=== PATIENT | female | born 1955 | race Caucasian/White ===

== ENCOUNTER 2018-02-27 01:27 | Emergency (ER) | payer OTHER ==
[~2018-02-27 01:27] MED LIST: ESC10 PO; HCTZ25 PO; VALS320T12 PO
--- NOTE | 2018-02-27 01:43 | ER Report ---
History and Physical Time Seen By MD: 01:42 HPI/ROS CHIEF COMPLAINT: fall down stairs HISTORY OF PRESENT ILLNESS: This is a 62 year old female. She fell down the stairs tonight. Missed the top step. Has a laceration of her scalp, neck pain, and pain in right ankle/foot and right wrist. No loss of consciousness. Normal vision. No nausea. No chest pain or palpitations. Allergies: Coded Allergies: No Known Drug Allergies (Verified , 02/28/16) Home Meds Active Scripts Cyclobenzaprine Hcl (CYCLOBENZAPRINE HCL) 10 Mg Tablet, 10 MG PO Q8H Y for MUSCLE SPASMS, #20 TAB 0 Refills Prov:KAREN JIMENEZ MD 02/27/18 Hydrocodone Bit/Acetaminophen (HYDROCODON-ACETAMINOPHEN 5-325) 1 Each Tablet, 1 EACH PO Q4H Y for PAIN, #12 TAB 0 Refills Prov:KAREN JIMENEZ MD 02/27/18 Reported Medications Atorvastatin Calcium (LIPITOR) 10 Mg Tablet, 1 TAB PO QDAY, TAB 02/27/18 Escitalopram Oxalate (Lexapro) 10 Mg Tab, 10 MG PO QDAY, 0 Refills 02/05/11 Hydrochlorothiazide (Hydrochlorothiazide) 25 Mg Tab, 25 MG PO QDAY, 0 Refills 02/05/11 Valsartan (Diovan) 320 Mg Tablet, 320 MG PO QAM, 0 Refills 02/05/11 Reviewed Nurses Notes: Yes Hx Smoking: No Smoking Status: Never Smoker Hx Alcohol Use: No Constitutional Vital Sign - Last 24 Hours 02/27/18 02/27/18 02/27/18 02/27/18 01:33 01:36 01:39 01:42 Pulse 93 93 Resp 20 B/P (MAP) 134/81 (98) 141/77 (98) 141/77 Pulse Ox 92 O2 Delivery Room Air 02/27/18 02/27/18 02/27/18 02/27/18 02:29 02:32 02:47 03:00 Pulse 97 95 B/P (MAP) 140/88 (105) 136/77 (96) Pulse Ox 91 02/27/18 02/27/18 02/27/18 02/27/18 03:02 03:17 03:32 03:37 Pulse 101 95 93 90 Pulse Ox 90 95 93 90 Physical Exam General Appearance: The patient is alert, has no immediate need for airway protection and no current signs of toxicity. Eyes: Pupils equal and round, no injection. Reactive to light. Extraocular movements are intact. ENT: No dental or oral trauma. Respiratory: Breath sounds are equal, breathing easily. Cardiac: Regular rate and rhythm. Neurological: GCS 15. Alert and oriented x4. No deficits noted. Skin: Scalp laceration left parietal scalp. Musculoskeletal: Head: Otherwise atraumatic. Neck: The cervical spine is tender in the midline, cervical collar applied after my evaluation. Back: There is no thoracic or lumbar spine or paraspinal tenderness. Pelvis: Non-tender, no laxity with pelvic pressure. Extremities: Tender right wrist, radial side, right foot/ankle area. and left lateral rico. DIFFERENTIAL DIAGNOSIS: After history and physical exam differential diagnosis was considered for trauma in a fall down stairs, concern for head/neck injury, right wrist, right foot/ankle, and left tib/fib injuries. Will address the scalp laceration after imaging obtained. Medical Decision Making EKG/Imaging Imaging HEAD CT: Indication: Injury. Technique: Contiguous axial sections were obtained from the base to the vertex without contrast enhancement. One of the following dose optimization techniques was utilized in the performance of this exam: Automated exposure control; adjustment of the mA and/ or kV according to the patient's size; or use of an iterative reconstruction technique. Specific details can be referenced in the facility's radiology CT exam operational policy. Comparison: None. Findings: There is no evidence of intra-axial or extra-axial hemorrhage. No focal areas of decreased or increased attenuation are identified. There is no evidence of mass, edema, or shift of the midline structures. The size, shape, and configuration of the ventricular system are normal. There is soft tissue deformity on the left side of the scalp. There is no evidence of fracture or other acute skeletal deformity. Mucosal thickening is present in the maxillary, ethmoid, and sphenoid sinuses. The mastoid air cells are clear. Impression: Scalp soft tissue deformity. No evidence of fracture or hemorrhage. Report Dictated By: Tomy Bronwe MD at 02/27/2018 2:[address] of the cervical spine without contrast: Indication: Injury. Technique: Helical CT was performed from the base of the skull through the upper thoracic spine without contrast. Axial, coronal, and sagittal reconstructions are reviewed. One of the following dose optimization techniques was utilized in the performance of this exam: Automated exposure control; adjustment of the mA and/ or kV according to the patient's size; or use of an iterative reconstruction technique. Specific details can be referenced in the facility's radiology CT exam operational policy. Comparison: None. Findings: There is a nondisplaced fracture through the right superior and anterior margin of the C5 vertebral body. The findings are best visualized in the axial and sagittal planes. The C5 vertebral body is otherwise intact. There is no deformity of the posterior elements. No other acute skeletal deformity is identified. There are no signs of subluxation, angulation, or rotational deformity. There is moderate/marked degenerative disc disease at C3-C4, C5-C6, and C6-C7. There is uniform mineralization of the skeletal structures. There are signs of mild swelling in the prevertebral soft tissues. Impression: There is a nondisplaced fracture through the right superior and anterior margin of the C5 vertebral body. The skeletal structures are otherwise intact. There is no evidence of subluxation, angulation, or rotational deformity. A preliminary report was called to Dr. Jimenez at at 0255 hours. Report Dictated By: Tomy Browne MD at 02/27/2018 2:49 AM Exam type: L-SPINE W/O CONTRAST History: FALL Comparison: None. TECHNIQUE: Contiguous 1 mm helical images of the lumbar spine was performed without contrast. 2-D coronal sagittal reformations were performed. One of the following dose optimization techniques was utilized in the performance of this exam: Automated exposure control; adjustment of the mA and/ or kV according to the patient's size; or use of an iterative reconstruction technique. Specific details can be referenced in the facility's radiology CT exam operational policy. Findings: There is no acute fracture of lumbar spine. Patient is osteopenic. Significant degenerative changes are noted at L2-3 with loss of disc space height and endplate sclerosis. There is normal facet alignment in the AP alignment is relatively appropriate with minimal 2 mm of retrolisthesis of L2 with respect to L3. Broad-based protrusion is noted L4-5 which causes mild bilateral neuroforaminal narrowing. L5-S1 demonstrates a mild broad-based protrusion as well. Surrounding soft tissues are unremarkable. IMPRESSION: 1. No acute fracture of the lumbar spine. 2. Degenerative changes are noted L2-3. 3. Osteopenia. Report Dictated By: Po Recinos MD at 02/27/2018 2:47 AM Exam type: WRIST RIGHT MIN 3 VIEW History: Fall Comparison: None. Findings: There is a comminuted fracture of the distal right radius extending into the radiocarpal joint and distal radioulnar joint with impaction. Displaced fragment along the volar surface of the distal radius is displaced nearly 2 mm. Ulna is intact. Carpus aligns appropriate. Cyst within the scaphoid appears to be benign well-circumscribed. IMPRESSION: 1. Comminuted and impacted fracture of the distal right radius with involvement of the radiocarpal joint and distal radioulnar joint. Report Dictated By: Po Recinos MD at 02/27/2018 2:43 AM RIGHT FOOT: Indication: Injury. Technique: 3 views were obtained. Comparison: None. Findings: There are acute fractures across the bases of the second, third, and fourth metatarsals. There are no signs of dislocation. The skeletal structures are otherwise intact. There is normal mineralization. Moderate spur formation is observed on the plantar margin of the calcaneus. No focal soft tissue deformity is evident. IMPRESSION: Acute fractures at the bases of the second, third, and fourth metatarsals. Report Dictated By: Tomy Browne MD at 02/27/2018 2:43 AM Exam type: ANKLE 3 VIEW MIN RIGHT History: Fall Comparison: None. Findings: There is no acute fracture of the right ankle. Ankle mortise aligns appropriately. Hindfoot demonstrates a calcaneal heel spur. Soft tissues are unremarkable. IMPRESSION: 1. No acute fracture of the right ankle. Report Dictated By: Po Recinos MD at 02/27/2018 2:53 AM Exam type: 2 views left tibia and fibula History: Fall Comparison: None. Findings: There is no acute fracture of left tibia or fibula. Knee joints unremarkable. Ankle joint is also unremarkable. Hindfoot is notable for a calcaneal heel spur. IMPRESSION: 1. No acute fracture of the left tibia or fibula. Report Dictated By: Po Recinos MD at 02/27/2018 2:46 AM ED Course/Re-evaluation ED Course Images were obtained. Cervical spine protected while waiting for CT scans. Once these were available, the cervical collar was removed. Half cast applied to the right wrist and the right foot. Laceration repair as noted below. Patient prefers to use ibuprofen and Tylenol. I did give her a take home pack of Lortab and Flexeril just in case she needed this for pain as well as prescriptions. She will be nonweightbearing and follow up with [facility]. She will call them on Wednesday. Procedure Procedure: Laceration Repair Verbal consent from patient after discussing repair options, risks and benefits. Wound cleaned extensively with saline and Hibiclens. Anesthesia: 1% lidocaine with epinephrine. Location: Left parietal scalp. Length: 5 cm. There were no deep structures involved. Wound repair: 9 dannielle. The wound repair was simple and performed by myself. Wound care instructions discussed. Savery need to be removed in 7 days. Procedure: Sugar tong right forearm half cast and a combination stirrup posterior right foot half cast placement. A half-cast/splint as noted above was applied. After application of the half- cast, I returned and re-examined the patient. The half-cast was adequately immobilizing the joint and distally the patient's circulation and sensation was intact. This was applied by myself with the help of the pyrotechnist. Decision to Disposition Date: Feb 27, 2018 Decision to Disposition Time: 03:42 Depart Departure Latest Vital Signs Vital Signs Date Time Temp Pulse Resp B/P (MAP) Pulse Ox O2 Delivery O2 Flow Rate FiO2 02/27/18 03:37 90 90 02/27/18 03:00 136/77 (96) 02/27/18 01:39 20 Room Air Impression: Primary Impression: Fracture of C5 vertebra, closed Additional Impressions: Fracture of metatarsal of right foot, closed Fracture of distal end of right radius Fall down stairs Scalp laceration Condition: Improved Disposition: HOME OR SELF-CARE Referrals: RIVERA RODRIGUESP (PCP) CORINNE LAROSE MD New Scripts Cyclobenzaprine Hcl (CYCLOBENZAPRINE HCL) 10 Mg Tablet 10 MG PO Q8H Y for MUSCLE SPASMS, #20 TAB 0 Refills Prov: KAREN JIMENEZ MD 02/27/18 Hydrocodone Bit/Acetaminophen (HYDROCODON-ACETAMINOPHEN 5-325) 1 Each Tablet 1 EACH PO Q4H Y for PAIN, #12 TAB 0 Refills Prov: KAREN JIMENEZ MD 02/27/18 Patient Instructions: Foot Fracture in Adults (ED), Laceration (ED), Vertebral Compression Fracture (ED), Wrist Fracture in Adults (ED) Additional Instructions: Ibuprofen 200mg over the counter tablets, take 4 tablets three times a day with food. Lortab 5/325, one every 4 hours as needed for pain. Apply ice 20 minutes every 1-2 hours while awake. No weight bearing. Keep the splints on until you see the orthopedic surgeon. Keep them clean and dry. Check with medical supply or the pharmacies to find a scooter to help get around. Rest the injured area, keep it elevated while at rest. Wound Care: Wash the wound once a day with soap and water. Showering is okay. Dry the wound and apply a small amount of antibiotic ointment. No soaking the wound; no swimming. Savery need to be removed in 7 days. Pain Control: Use Ibuprofen for pain. Using and ice pack can help reduce swelling Problem Qualifiers Primary Impression: Fracture of C5 vertebra, closed Encounter type: initial encounter Fracture morphology: other fracture Fracture alignment: nondisplaced Qualified Codes: S12.491A - Other nondisplaced fracture of fifth cervical vertebra, initial encounter for closed fracture Additional Impressions: Fracture of metatarsal of right foot, closed Encounter type: initial encounter Metatarsal bone: unspecified metatarsal Fracture alignment: nondisplaced Qualified Codes: S92.301A - Fracture of unspecified metatarsal bone(s), right foot, initial encounter for closed fracture Fracture of distal end of right radius Encounter type: initial encounter Fracture type: closed Fracture morphology : other intra-articular Qualified Codes: S52.571A - Other intraarticular fracture of lower end of right radius, initial encounter for closed fracture Fall down stairs Encounter type: initial encounter Qualified Codes: W10.8XXA - Fall (on) ( from) other stairs and steps, initial encounter Scalp laceration Encounter type: initial encounter Qualified Codes: S01.01XA - Laceration without foreign body of scalp, initial encounter KAREN JIMENEZ MD Feb 27, 2018 01:43
[2018-02-27] MEDS ORDERED: ATOR10TA24 PO (01:53)
--- NOTE | 2018-02-27 02:49 | RADIOLOGY IMAGING REPORT ---
FACILITY: [facility] - [place] PATIENT NAME: Kristina Parkinson : 1955 MR: [id number] V: [id number] EXAM DATE: ORDERING PHYSICIAN: KAREN JARAMILLO TECHNOLOGIST: Location: [facility] - [place] Patient: Kristina Parkinson : 1955 Visit/Account:[id number] Date of Sevice: 02/27/2018 RIGHT FOOT: Indication: Injury. Technique: 3 views were obtained. Comparison: None. Findings: There are acute fractures across the bases of the second, third, and fourth metatarsals. Th ere are no signs of dislocation. The skeletal structures are otherwise intact. There is normal minera lization. Moderate spur formation is observed on the plantar margin of the calcaneus. No focal soft t issue deformity is evident. IMPRESSION: Acute fractures at the bases of the second, third, and fourth metatarsals. Report Dictated By: Tomy Browne MD at 02/27/2018 2:43 AM Report E-Signed By: Tomy Browne MD at 02/27/2018 2:45 AM WSN:[id number]
--- NOTE | 2018-02-27 02:50 | RADIOLOGY IMAGING REPORT ---
FACILITY: [facility] PATIENT NAME: Kristina Parkinson : 1955 MR: [id number] V: [id number] EXAM DATE: ORDERING PHYSICIAN: KAREN JARAMILLO TECHNOLOGIST: Location: [facility] [place] Patient: Kristina Parkinson : 1955 Visit/Account:[id number] Date of Sevice: 02/27/2018 Exam type: 2 views left tibia and fibula History: Fall Comparison: None. Findings: There is no acute fracture of left tibia or fibula. Knee joints unremarkable. Ankle joint is also unr emarkable. Hindfoot is notable for a calcaneal heel spur. IMPRESSION: 1. No acute fracture of the left tibia or fibula. Report Dictated By: Po Recinos MD at 02/27/2018 2:46 AM Report E-Signed By: Po Recinos MD at 02/27/2018 2:47 AM WSN:[id number]
--- NOTE | 2018-02-27 02:50 | RADIOLOGY IMAGING REPORT ---
FACILITY: [facility] - [place] PATIENT NAME: Kristina Parkinson : 1955 MR: [id number] V: [id number] EXAM DATE: ORDERING PHYSICIAN: KAREN JARAMILLO TECHNOLOGIST: Location: [facility] [place] Patient: Kristina Parkinson : 1955 Visit/Account:[id number] Date of Sevice: 02/27/2018 Exam type: WRIST RIGHT MIN 3 VIEW History: Fall Comparison: None. Findings: There is a comminuted fracture of the distal right radius extending into the radiocarpal joint and di stal radioulnar joint with impaction. Displaced fragment along the volar surface of the distal radius is displaced nearly 2 mm. Ulna is intact. Carpus aligns appropriate. Cyst within the scaphoid appears to be benign well-circums cribed. IMPRESSION: 1. Comminuted and impacted fracture of the distal right radius with involvement of the radiocarpal erlinda int and distal radioulnar joint. Report Dictated By: Po Recinos MD at 02/27/2018 2:43 AM Report E-Signed By: Po Recinos MD at 02/27/2018 2:45 AM WSN:[id number]
--- NOTE | 2018-02-27 02:53 | RADIOLOGY IMAGING REPORT ---
FACILITY: [facility] [place] PATIENT NAME: Kristina Parkinson : 1955 MR: [id number] V: [id number] EXAM DATE: ORDERING PHYSICIAN: KAREN JARAMILLO TECHNOLOGIST: Location: [facility] [place] Patient: Kristina Parkinson : 1955 Visit/Account:[id number] Date of Sevice: 02/27/[address]: Indication: Injury. Technique: Contiguous axial sections were obtained from the base to the vertex without contrast enhan cement. One of the following dose optimization techniques was utilized in the performance of this exam: Autom ated exposure control; adjustment of the mA and/or kV according to the patient's size; or use of an i terative reconstruction technique. Specific details can be referenced in the facility's radiology CT exam operational policy. Comparison: None. Findings: There is no evidence of intra-axial or extra-axial hemorrhage. No focal areas of decreased or increased attenuation are identified. There is no evidence of mass, edema, or shift of the midline structures. The size, shape, and configuration of the ventricular system are normal. There is soft tissue deformity on the left side of the scalp. There is no evidence of fracture or oth er acute skeletal deformity. Mucosal thickening is present in the maxillary, ethmoid, and sphenoid si nuses. The mastoid air cells are clear. Impression: Scalp soft tissue deformity. No evidence of fracture or hemorrhage. Report Dictated By: Tomy Browne MD at 02/27/2018 2:45 AM Report E-Signed By: Tomy Browne MD at 02/27/2018 2:49 AM WSN:[id number]
[2018-02-27 03:00] VITALS: BP 136/77
--- NOTE | 2018-02-27 03:21 | RADIOLOGY IMAGING REPORT ---
FACILITY: [facility] - [place] PATIENT NAME: Kristina Parkinson : 1955 MR: [id number] V: [id number] EXAM DATE: ORDERING PHYSICIAN: KAREN JARAMILLO TECHNOLOGIST: Location: [facility] Patient: Kristina Parkinson : 1955 Visit/Account:[id number] Date of Sevice: 02/27/2018 Exam type: ANKLE 3 VIEW MIN RIGHT History: Fall Comparison: None. Findings: There is no acute fracture of the right ankle. Ankle mortise aligns appropriately. Hindfoot demonstra ana a calcaneal heel spur. Soft tissues are unremarkable. IMPRESSION: 1. No acute fracture of the right ankle. Report Dictated By: Po Recinos MD at 02/27/2018 2:53 AM Report E-Signed By: Po Recinos MD at 02/27/2018 2:54 AM WSN:[id number]
--- NOTE | 2018-02-27 03:21 | RADIOLOGY IMAGING REPORT ---
FACILITY: [facility] PATIENT NAME: Kristina Parkinson : 1955 MR: [id number] V: [id number] EXAM DATE: ORDERING PHYSICIAN: KAREN JIMENEZ TECHNOLOGIST: Location: [facility] Patient: Kristina Parkinson : 1955 Visit/Account:[id number] Date of Sevice: 02/27/2018 CT of the cervical spine without contrast: Indication: Injury. Technique: Helical CT was performed from the base of the skull through the upper thoracic spine witho ut contrast. Axial, coronal, and sagittal reconstructions are reviewed. One of the following dose optimization techniques was utilized in the performance of this exam: Autom ated exposure control; adjustment of the mA and/or kV according to the patient's size; or use of an i terative reconstruction technique. Specific details can be referenced in the facility's radiology C T exam operational policy. Comparison: None. Findings: There is a nondisplaced fracture through the right superior and anterior margin of the C5 v ertebral body. The findings are best visualized in the axial and sagittal planes. The C5 vertebral aileen dy is otherwise intact. There is no deformity of the posterior elements. No other acute skeletal deformity is identified. There are no signs of subluxation, angulation, or ro tational deformity. There is moderate/marked degenerative disc disease at C3-C4, C5-C6, and C6-C7. 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 There are signs of mild swelling in the prevertebral soft tissues. Impression: There is a nondisplaced fracture through the right superior and anterior margin of the C5 vertebral body. The skeletal structures are otherwise intact. There is no evidence of subluxation, a ngulation, or rotational deformity. A preliminary report was called to Dr. Jimenez at [facility] at 0255 hours. Report Dictated By: Tomy Browne MD at 02/27/2018 2:49 AM Report E-Signed By: Tomy Browne MD at 02/27/2018 3:04 AM WSN:[id number]
--- NOTE | 2018-02-27 03:23 | RADIOLOGY IMAGING REPORT ---
FACILITY: [facility] [place] PATIENT NAME: Kristina Parkinson : 1955 MR: [id number] V: [id number] EXAM DATE: ORDERING PHYSICIAN: KAREN JARAMILLO TECHNOLOGIST: Location: [facility] Patient: Kristina Parkinson : 1955 Visit/Account:[id number] Date of Sevice: 02/27/2018 Exam type: L-SPINE W/O CONTRAST History: FALL Comparison: None. TECHNIQUE: Contiguous 1 mm helical images of the lumbar spine was performed without contrast. 2-D cor onal sagittal reformations were performed. One of the following dose optimization techniques was utilized in the performance of this exam: Autom ated exposure control; adjustment of the mA and/or kV according to the patient's size; or use of an i terative reconstruction technique. Specific details can be referenced in the facility's radiology C T exam operational policy. Findings: There is no acute fracture of lumbar spine. Patient is osteopenic. Significant degenerative changes a re noted at L2-3 with loss of disc space height and endplate sclerosis. There is normal facet alignme nt in the AP alignment is relatively appropriate with minimal 2 mm of retrolisthesis of L2 with respe ct to L3. Broad-based protrusion is noted L4-5 which causes mild bilateral neuroforaminal narrowing. L5-S1 demonstrates a mild broad-based protrusion as well. Surrounding soft tissues are unremarkable. IMPRESSION: 1. No acute fracture of the lumbar spine. 2. Degenerative changes are noted L2-3. 3. Osteopenia. Report Dictated By: Po Recinos MD at 02/27/2018 2:47 AM Report E-Signed By: Po Recinos MD at 02/27/2018 2:53 AM WSN:[id number]
[2018-02-27] MEDS ORDERED: LOR5/325 PO (03:46)
[2018-02-27] MEDS ORDERED: ACET/HYDROC 5/325MG TH ER ONLY 2 TAB/BOTTLE PO ONE (03:50)
[2018-02-27] MEDS ORDERED: CYCLOBENZAPRINE HCL 10 MG TH PO ONE (03:55)
[2018-02-27] MEDS ORDERED: CYCL10TA29 PO (03:56)
[2018-02-27] MEDS ORDERED: ACETAMINOPHEN 500 MG TAB PO ONE (04:00)
== END 2018-02-27 04:13 | disposition home or self-care (01) ==
LOC: ER 01:45
DX: S12.491A Other nondisplaced fracture of fifth cervical vertebra, initial encounter for closed fracture (principal); S01.01XA Laceration without foreign body of scalp, initial encounter; S92.301A Fracture of unspecified metatarsal bone(s), right foot, initial encounter for closed fracture; S52.571A Other intraarticular fracture of lower end of right radius, initial encounter for closed fracture; W10.8XXA Fall (on) (from) other stairs and steps, initial encounter
CPT/HCPCS: 12002; 29125; 29515; 70450; 72125; 72131; 73110; 73590; 73610; 73630; 99284; L0172

== ENCOUNTER → 2018-03-01 | Outpatient (CLI) | payer OTHER ==
[~2018-03-01] MED LIST changes: +ATOR10TA24 PO; +CYCL10TA29 PO; +LOR5/325 PO
--- NOTE | 2018-03-02 08:57 | RADIOLOGY IMAGING REPORT ---
FACILITY: [facility] [place] PATIENT NAME: Kristina Parkinson : 1955 MR: [id number] V: [id number] EXAM DATE: ORDERING PHYSICIAN: RANDEE BETHEA TECHNOLOGIST: Location: [facility] Patient: Kristina Parkinson : 1955 Visit/Account:[id number] Date of Sevice: 03/01/2018 CT right wrist. Indication: Distal radius fracture. Comparison: None available Technique: Axial CT images were obtained through the right wrist. Reformatted coronal and sagittal im ages were reviewed. One of the following dose optimization techniques was utilized in the performance of this exam: autom ated exposure control; adjustment of the mA and/or kV according to the patient's size; or use of an i terative reconstruction technique. Specific details can be referenced in the facility's radiology CT exam operational policy. Findings: There is a mildly impacted intra-articular complex fracture of the distal radius with extension to th e distal radioulnar joint as well as the radiocarpal joint. Small bone fragment seen adjacent to the volar and dorsal aspects of the distal radius. There is also a loose body seen within the distal radi oulnar joint. There is no discrete fracture of the ulna identified on these images. Prominent cystic change seen within the scaphoid bone. The proximal carpal row is otherwise well alig shyam. There is a small sclerotic lesion within the proximal capitate bone suggesting a bone island. Cystic changes also seen within the proximal hamate bone. Significant registration artifact at the distal shaft of the ulna and radius also seen. The visualized flexor and extensor tendons appear to be overall intact. IMPRESSION: 1. Mildly impacted complex intra-articular fracture distal radius as described above in detail with n o definite fracture of the distal ulna. Report Dictated By: Dylan Gill MD at 03/02/2018 8:48 AM Report E-Signed By: Dylan Gill MD at 03/02/2018 8:52 AM WSN:[id number]
--- NOTE | 2018-03-02 09:11 | RADIOLOGY IMAGING REPORT ---
FACILITY: [facility] [place] PATIENT NAME: Kristina Parkinson : 1955 MR: [id number] V: [id number] EXAM DATE: ORDERING PHYSICIAN: RANDEE BETHEA TECHNOLOGIST: Location: [facility] Patient: Kristina Parkinson : 1955 Visit/Account:[id number] Date of Sevice: 03/01/2018 CT of the right foot INDICATION: Right foot 2nd through the 4th metatarsal fractures. COMPARISON: Plain radiographs of the right foot from 02/27/2018. Technique: Axial CT images were obtained through the right foot. Reformatted coronal and sagittal im ages were reviewed. One of the following dose optimization techniques was utilized in the performance of this exam: autom ated exposure control; adjustment of the mA and/or kV according to the patient's size; or use of an i terative reconstruction technique. Specific details can be referenced in the facility's radiology CT exam operational policy. FINDINGS: Mildly complex and mild offset intra-articular fracture at the lateral base of the 1st metatarsal wit h transverse mild offset fractures also seen at the proximal shafts of the 2nd and 3rd metatarsals wi th a moderately lateral displaced fracture the base of the 4th metatarsal. There is approximately 5.6 mm of lateral displacement. There is no displacement or significant widening between the 1st and 2nd metatarsals. There is prominent soft tissue swelling at the dorsal lateral aspect of the midfoot. Flexor and extensor tendons are intact and unremarkable. IMPRESSION: 1. Fractures involving the 1st through the 4th metatarsals as described above in detail. Report Dictated By: Dylan Gill MD at 03/02/2018 8:52 AM Report E-Signed By: Dylan Gill MD at 03/02/2018 9:08 AM WSN:[id number]
== END ==
LOC: CT 07:05
PROVIDERS: ATTEND Orthopaedic Surgery
DX: S52.591A Other fractures of lower end of right radius, initial encounter for closed fracture (principal); S92.311A Displaced fracture of first metatarsal bone, right foot, initial encounter for closed fracture; S92.321A Displaced fracture of second metatarsal bone, right foot, initial encounter for closed fracture; S92.331A Displaced fracture of third metatarsal bone, right foot, initial encounter for closed fracture; S92.341A Displaced fracture of fourth metatarsal bone, right foot, initial encounter for closed fracture

== ENCOUNTER → 2018-03-01 | Outpatient (CLI) | payer OTHER ==
--- NOTE | 2018-03-01 17:54 | EKG ---
FACILITY: [facility] PATIENT NAME: BEV GONZALEZ : [id number] MR: [id number] V: [id number] EXAM DATE: ORDERING PHYSICIAN: KENA OBRIEN TECHNOLOGIST: SARAH Test Reason : PREOP-WRIST Blood Pressure : / mmHG Vent. Rate : 076 BPM Atrial Rate : 076 BPM P-R Int : 142 ms QRS Dur : 082 ms QT Int : 364 ms P-R-T Axes : 049 051 006 degrees QTc Int : 409 ms Normal sinus rhythm Normal ECG No previous ECGs available Referred By: CAMILLE Confirmed By:
== END ==
LOC: LAB 16:18
PROVIDERS: ATTEND Anesthesiology
DX: Z01.812 Encounter for preprocedural laboratory examination (principal); Z01.810 Encounter for preprocedural cardiovascular examination
CPT/HCPCS: 36415; 82040; 82247; 82310; 82374; 82435; 82565; 82947; 84075; 84132; 84155; 84295; 84450; 84460; 84520; 93005

== ENCOUNTER → 2018-07-05 | Outpatient (CLI) | payer OTHER ==
--- NOTE | 2018-07-06 15:22 | RADIOLOGY IMAGING REPORT ---
FACILITY: [facility] [place] PATIENT NAME: BEV GONZALEZ : [id number] MR: [id number] V: [id number] EXAM DATE: [id number] ORDERING PHYSICIAN: RIVERA RODRIGUES TECHNOLOGIST: Edith Watson PROCEDURE:BILATERAL DIGITAL SCREENING MAMMOGRAM WITH CAD ASSISTED INTERPRETATION & 3D TOMOSYNTHESIS COMPARISON:Prior mammograms 06/29/2017. INDICATIONS:SCREENING FINDINGS: Breast tissue is predominantly fatty. Scattered calcifications are seen in both Right and Left breast. There is no suspicious mass, calcification, or architectural distortion. DIAGNOSTIC CATEGORY 2--BENIGN FINDING. RECOMMENDATIONS: ROUTINE MAMMOGRAM AND CLINICAL EVALUATION. IMPRESSION: BIRADS 2: Benign finding. No mammographic evidence for malignancy. Dictated by: Kenney Ching M.D. on 07/06/2018 at 10:08 Transcribed by: MARIAN on 07/06/2018 at 10:24 Approved by: Kenney Ching M.D. on 07/06/2018 at 15:22 [facility]
== END ==
LOC: MAMO 03:21
PROVIDERS: ATTEND Nurse Practitioner Family
DX: Z12.31 Encounter for screening mammogram for malignant neoplasm of breast (principal); R92.1 Mammographic calcification found on diagnostic imaging of breast
CPT/HCPCS: 77063; 77067

== ENCOUNTER → 2018-11-23 | Outpatient (CLI) | payer OTHER ==
--- NOTE | 2018-11-23 16:31 | RADIOLOGY IMAGING REPORT ---
FACILITY: [facility] PATIENT NAME: Kristina Parkinson : 1955 MR: [id number] V: [id number] EXAM DATE: ORDERING PHYSICIAN: YESI MENDEZ TECHNOLOG[place]: [place] [facility] [place] : 1955 Visit/Account:[id number] Date of Sevice: 11/23/2018 Technique: KUB SINGLE VIEW ABDOMEN HISTORY: Abdominal pain and bloating Comparison studies: None FINDINGS: Imaged portions of the lung bases are clear. No evidence organomegaly. Surgical clips ove rlie the right upper quadrant. Mild stool volume is seen throughout the colon. IMPRESSION: 1. No acute intra-abdominal process. Report Dictated By: Surendra Suarez DO at 11/23/2018 4:16 PM Report E-Signed By: Surendra Suarez DO at 11/23/2018 4:25 PM WSN:[id number]
== END ==
LOC: RAD 14:26
PROVIDERS: ATTEND Nurse Practitioner Family
DX: R10.9 Unspecified abdominal pain (principal); R14.0 Abdominal distension (gaseous)
CPT/HCPCS: 74018

== ENCOUNTER → 2018-11-24 | Outpatient (CLI) | payer OTHER ==
[2018-11-24 08:36] LABS: PLATELET COUNT, AUTOMATED 351 K/uL (150-450)
[2018-11-24 08:46] LABS: LDL CHOLESTEROL 94 mg/dl
== END ==
LOC: LAB 08:19
PROVIDERS: ATTEND Nurse Practitioner Family
DX: Z00.00 Encounter for general adult medical examination without abnormal findings (principal); I10 Essential (primary) hypertension; R10.9 Unspecified abdominal pain
CPT/HCPCS: 36415; 82040; 82150; 82247; 82310; 82374; 82435; 82465; 82565; 82947; 83690; 83718; 84075; 84132; 84155; 84295; 84443; 84450; 84460; 84478; 84520; 85025; 86677

== ENCOUNTER → 2018-11-30 | Outpatient (CLI) | payer OTHER ==
--- NOTE | 2018-11-30 09:43 | RADIOLOGY IMAGING REPORT ---
FACILITY: [facility] [place] PATIENT NAME: Kristina Parkinson : 1955 MR: [id number] V: [id number] EXAM DATE: ORDERING PHYSICIAN: RIVERA RODRIGUES TECHNOLOGIST: Location: [facility] [place] Patient: Kristina Parkinson : 1955 Visit/Account:[id number] Date of Sevice: 11/30/2018 CT ABDOMEN PELVIS W/O CON HISTORY: Abdomen pain with constipation in November TECHNIQUE: Axial images acquired through the abdomen/pelvis. Coronal and sagittal reformatting also performed. No IV contrast administered.Dose Lowering Technique One of the following dose optimization techniques was utilized in the performance of this exam: Autom ated exposure control; adjustment of the mA and/or kV according to the patient's size; or use of an i terative reconstruction technique. Specific details can be referenced in the facility's radiology C T exam operational policy. COMPARISON: None. FINDINGS: Visualized lung bases: Negative. Hepatobiliary: Postsurgical changes from a cholecystectomy Spleen: Negative. Adrenals: Negative. Pancreas: Negative. Kidneys ureters and bladder: Kidneys appear grossly unremarkable on this limited noncontrast scan. T he bladder is decompressed Genitalia: Negative. GI: There is a small hiatal hernia. There is thickening and matting of small bowel loops on the lef t side of the abdomen which appear to be in intimate contact with the descending colon.. The matting of the bowel loops extend medially to the midline. There is extensive nodularity and infiltrative c hanges throughout the omentum concerning for peritoneal metastases. There is a small amount of free pelvic fluid Vessels/spaces/nodes: In addition to the omental nodularity there are multiple small right epiphreni c lymph nodes. The largest measures 1.1 x 0.7 cm Bones/soft tissues: There is a tiny umbilical hernia containing fat. There are spondylotic changes of the visualized thoracal lumbar spine which are most prominent at L2- 3 Additional findings: None pertinent. IMPRESSION: There is thickening and matting of small bowel loops left-sided the abdomen which appear to be in int imate contact with the descending colon. The matting of the small bowel loops extends medially to th e midline. This process is concerning for a malignant process. There is a small amount of free pelv ic fluid and extensive nodularity and infiltrative changes throughout the omentum concerning for trish toneal metastases. Multiple small epiphrenic lymph nodes on the right the largest measuring 1.1 x 0.7 cm Small hiatal hernia Tiny umbilical hernia containing fat Report Dictated By: Estrella Hallman MD at 11/30/2018 9:10 AM Report E-Signed By: Estrella Hallman MD at 11/30/2018 9:39 AM WSN:[id number]
== END ==
LOC: CT 00:23
PROVIDERS: ATTEND Nurse Practitioner Family
DX: K44.9 Diaphragmatic hernia without obstruction or gangrene (principal); K42.9 Umbilical hernia without obstruction or gangrene; R59.0 Localized enlarged lymph nodes
CPT/HCPCS: 74176

== ENCOUNTER → 2018-12-05 | Outpatient (CLI) | payer OTHER ==
[~2018-12-05] MED LIST changes: +LOSA100T75 PO
== END ==
LOC: LAB 09:25
PROVIDERS: ATTEND Surgery
DX: R10.9 Unspecified abdominal pain (principal)
CPT/HCPCS: 36415; 86304

== ENCOUNTER → 2018-12-12 | Outpatient (CLI) | payer OTHER ==
[~2018-12-12] MED LIST changes: +DICY20TA70 PO; +IOPAMIDOL 76% 150 ML INFUS BTL 150 ML ONE; +POLY17PO25 PO
--- NOTE | 2018-12-12 11:53 | RADIOLOGY IMAGING REPORT ---
FACILITY: [facility] [place]IENT NAME: Kristina Parkinson : 1955 MR: [id number] V: [id number] EXAM DATE: ORDERING PHYSICIAN: DAGO RASHID TECHNOLOGIST: Location: [facility] [place] Patient: Kristina Parkinson : 1955 Visit/Account:[id number] Date of Sevice: 12/12/2018 CT CHEST ABDOMEN PELVIS W/CON HISTORY: abdominal pain, diarrhea, follow-up from November ADDITIONAL HISTORY: None. TECHNIQUE: Following administration of IV contrast axial images acquired through the chest abdomen a nd pelvis during the portal venous phase. Coronal and sagittal reformatting was also performed.Dose Lowering Technique One of the following dose optimization techniques was utilized in the performance of this exam: Autom ated exposure control; adjustment of the mA and/or kV according to the patient's size; or use of an i terative reconstruction technique. Specific details can be referenced in the facility's radiology C T exam operational policy. CONTRAST: 75 mL Isovue-370 COMPARISON: November 30, 2018 FINDINGS: CHEST: Lungs/Pleura: There is a 2 mm subpleural nodule lateral aspect of the left lower lobe that appears u nchanged Mediastinum/lymph nodes: Negative. Heart/vessels: Negative. Bones/soft tissues: S-shaped scoliosis of the cervical thoracic spine ABDOMEN AND PELVIS: Hepatobiliary: There are postsurgical changes from a cholecystectomy Spleen: Negative. Pancreas: Negative. Adrenals: Negative. Kidneys ureters and bladder : There are several tiny subcentimeter hypodensities in the right kidney that are too small to characterize Bladder is decompressed therefore not ideally evaluated. Genitalia: In the left adnexa there is a 4.1 x 3.8 cm complex structure most likely related to the le ft ovary. GI: Small hiatal hernia again noted. Again noted are numerous matted loops of small bowel in the left side of the abdomen appear to be adh erent to the left side of the colon.. There is mild thickening enhancement of the terminal ileum. T he distal ileal bowel loops appear slightly dilated and fluid-filled measuring up to 3.2 cm infiltrat gregory changes and nodularity throughout the omentum appears relatively unchanged.. There is a slight i ncrease in the small amount of free pelvic and abdominal fluid. Vessels/spaces/nodes: Epiphrenic lymph nodes appear unchanged. Please see above discussion concerni ng the omentum Bones/soft tissues: Tiny umbilical hernia containing fat. Spondylotic changes of the thoracal lumba r spine most prominent at L2-3 Additional findings: None pertinent. IMPRESSION: Again noted are numerous matted loops of small bowel in the left side of the abdomen which appear to be adherent to the left side of the colon. Although these changes could be inflammatory, malignancy should be excluded. There are infiltrative changes and nodularity seen throughout the omentum. Alth ough this could represent edema findings are concerning for carcinomatosis. There is enhancement thickening of the terminal ileum. There is also mild fluid distention of the di stal ileal loops. This raises the question of possible inflammatory bowel disease and clinical corre lation needed. There has been a slight increase in the small amount of free pelvic and abdominal flu id In the left adnexa there is a 4.1 x 3.8 cm complex structure most likely related to the left ovary. Further evaluation with pelvic ultrasound to exclude an ovarian mass is recommended. 2 mm subpleural noncalcified nodule lateral aspect left lower lobe appears unchanged [employer] SOC[employer] FOLLOW-UP GUIDELINES FOR NEWLY DETECTED INCIDENTAL NODULES IN PERSONS 35 YEARS OF AGE OR OLDER. *These recommendations do NOT apply to lung cancer screening, patients with immunosuppression or avis ents with a known primary malignancy. SOLITARY SOLID NODULE If nodule size is < 6 mm: * Low risk patient ? No routine follow-up. * High risk patient ? Optional CT at 12 months. If nodu e size is 6-8 mm: * Low risk patient ? CT at 6-12 months, then consider CT at 18-24 months if no change. * High risk patient ? CT at 6-12 months, then CT at 18-24 months if no change. If nodule size is > 8 mm:* Low risk patient ? Consider CT at 3, 9 and 24 months (if no change), PET/ CT, tissue sampling or a combination thereof. * High risk patient ? Consider CT at 3, 9 and 24 months (if no change), PET/CT, tissue sampling, or a combination thereof. LOW RISK PATIENT: Minimal or absent history of tobacco use and of other known risk factors. HIGH RISK PATIENT: Tobacco use, family history of lung cancer, upper pulmonary lobe location of nodul e, presence of emphysema, pulmonary fibrosis, older age. Landen H, Bao DP, Ld JM, et al. Guidelines for Management of Incidental Pulmonary Nodules Dete cted on CT Images: From the Fleischner Society 2017. Radiology. uchnipn Epiphrenic lymph nodes appear unchanged Report Dictated By: Estrella Hallman MD at 12/12/2018 11:17 AM Report E-Signed By: Estrella Hallman MD at 12/12/2018 11:44 AM WSN:[id number]
== END ==
LOC: CT 01:45
PROVIDERS: ATTEND Surgery
DX: R93.3 Abnormal findings on diagnostic imaging of other parts of digestive tract (principal)
CPT/HCPCS: 71260; 74177; Q9967

== ENCOUNTER 2018-12-15 00:57 | Day surgery (SDC) | payer OTHER ==
--- NOTE | 2018-12-07 11:02 | EKG ---
[place] [facility] [place] NAME: BEV GONZALEZ : [id number] MR: [id number] V: [id number] EXAM DATE: ORDERING PHYSICIAN: SRIKANTH RASHID TECHNOLOGIST: SARAH Test Reason : PREOP-COLONOSCOPY Blood Pressure : / mmHG Vent. Rate : 089 BPM Atrial Rate : 089 BPM P-R Int : 156 ms QRS Dur : 084 ms QT Int : 388 ms P-R-T Axes : 050 061 044 degrees QTc Int : 472 ms Sinus rhythm Nonspecific T wave flattening anterior leads Prolonged QT Abnormal ECG Confirmed by MAYUR SERNA ([id number]) on 12/07/2018 1:53:53 PM Referred By: RACHID Confirmed By:MAYUR SERNA
[~2018-12-15] VITALS: Ht 157.5 cm; Wt 77.1 kg
[~2018-12-15 00:57] MED LIST changes: -IOPAMIDOL 76% 150 ML INFUS BTL 150 ML ONE
[2018-12-15 06:00] VITALS: BP 122/79
[2018-12-15] MEDS ORDERED: NORMOSOL R SOLN(*) 1000 ML BAG 1,000 ML IV PRN (06:00)
[2018-12-15] MEDS ORDERED: LIDOCAINE/SOD BICARB 8.4% SYR ID ONE (06:00)
[2018-12-15] MEDS ORDERED: PROPOFOL EMUL(*) 10MG/ML 20 ML 20 ML ONE ×2 (06:26→07:04)
[2018-12-15 07:31] VITALS: BP 110/68
--- NOTE | 2018-12-15 07:31 | NUR ---
0731 SBAR REPORT WAS RECEIVED FROM DR. CHAO AND RICHARD. PATIENT IS IS A LEFT LATERAL POSITION. SHE IS SLEEPING. SHE IS ON 3 LITERS HIGH FLOW NASAL CANNULA. BOWEL SOUNDS ARE ACTIVE. LUNGS ARE CLEAR. UNABLE TO ASSESS PAIN OR NAUSEA. 0738 PATIENT WOKE UP. SHE WAS MOVED TO ROOM AIR AND IS TOLERATING THIS WELL 0740 PATIENT WAS GIVEN A WARM BLANKET AND BEGAN DRINKING WATER AND CRANBERRY JUICE. SHE WAS MOVED TO A SEMIFOWLERS POSITION.
--- NOTE | 2018-12-15 07:44 | Short(Outpt) Discharge Summary ---
Discharge Summary Reason for Hosp/Final Diag: (1) GI bleed Hospital Course & Plan: poss gi bleed. abnormal ct. pt presented for colonoscopy. she tolerated the procedure well and there were no complications. a mass was seen in the cecum. path pending. pt will be discharged home when criteria met. Discharge Instructions Home Meds Reported Medications Polyethylene Glycol 3350 (MIRALAX) 17 Gm Powd.pack, 17 GM PO DAILY, PKT 12/07/18 Dicyclomine Hcl (DICYCLOMINE HCL) 20 Mg Tablet, 20 MG PO DAILY 12/07/18 Losartan Potassium (LOSARTAN POTASSIUM) 100 Mg Tablet, 100 MG PO QDAY 12/06/18 Atorvastatin Calcium (LIPITOR) 10 Mg Tablet, 1 TAB PO QDAY, TAB 02/27/18 Escitalopram Oxalate (Lexapro) 10 Mg Tab, 10 MG PO QDAY, 0 Refills 02/05/11 Hydrochlorothiazide (Hydrochlorothiazide) 25 Mg Tab, 25 MG PO QDAY, 0 Refills 02/05/11 Diet: Regular Activity: As Tolerated Special Instructions: we will call you in a few days with biopsy results. DAGO RASHID Dec 15, 2018 07:44
[2018-12-15 07:45] VITALS: BP 108/63
[2018-12-15 08:15] VITALS: BP 137/78
[2018-12-15 08:34] VITALS: BP 122/64
[2018-12-15 08:35] VITALS: BP 115/66
--- NOTE | 2018-12-15 09:38 | NUR ---
0800 PATIENT BEGAN EATING PUDDING AND IS TOLERATING THIS WELL 0820 DR. RASHID WAS IN TO TALK WITH PATIENT AND THE RESULTS OF THE PROCEDURE 0834 BEGAN DOING ORTHOSTATICS WITH PATIENT. DENIES ANY DIZZINESS OR LIGHTHEADEDNESS 0835 PATIENT WAS STABLE ON HER FEET 0837 PATIENT USED THE BATHROOM 0840 PATIENT BEGAN GETTING DRESSED 0900 IV WAS DC'D WITH CATH INTACT 0903 BEGAN GOING OVER DC INSTRUCTIONS WITH PATIENT AND HER . THEY VERBALIZED UNDERSTANDING 0925 PATIENT WAS DC'D AND WAS AMBULATORY ON DISCHARGE. SHE WAS TAKEN OVER TO THE [facility] [place] AND WANTED TO TALK TO DR. RASHID WITH HER . PATIENTS LUNGS ARE CLEAR. BOWEL SOUNDS ARE ACTIVE. SHE DENIES ANY PAIN OR NAUSEA. SEE DISCHARGE ASSESSMENT.
== END 2018-12-15 09:25 | disposition home or self-care (01) ==
LOC: OR 00:57
PROVIDERS: ATTEND Surgery
DX: C18.0 Malignant neoplasm of cecum (principal); I10 Essential (primary) hypertension; E78.5 Hyperlipidemia, unspecified; F41.9 Anxiety disorder, unspecified; K21.9 Gastro-esophageal reflux disease without esophagitis; E66.9 Obesity, unspecified; Z68.30 Body mass index [BMI] 30.0-30.9, adult
CPT/HCPCS: 00811; 45380; 88305; 88344; 93005; J2704

== ENCOUNTER → 2019-01-13 | Day surgery (SDC) | payer OTHER ==
[~2019-01-13] VITALS: Ht 157.5 cm; Wt 73.9 kg
[~2019-01-13] MED LIST changes: +DEXAMETHASONE SOD PHOS 10MG/ML ONE; +DOCU-416 PO; +FAMOTIDINE 20 MG TAB PO ONE; +HEPARIN SOD LCK FLSH 100 UN/ML ONE; +LIDOCAINE/SOD BICARB 8.4% SYR ID ONE; +LORA-1455 PO; +MIDAZOLAM 2 MG/2 ML VIAL IVP PRN; +NORMOSOL R SOLN(*) 1000 ML BAG 1,000 ML IV PRN; +NS(*) 0.9% 10 ML VIAL 20 ML ONE; +ONDA4TAB97 PO; +ONDANSETRON 4 MG/2 ML VIAL ONE; +OXYC-854 PO; +PROC10TA4 PO; +PROPOFOL EMUL(*) 10MG/ML 20 ML 20 ML ONE; +ROPIVACAINE 0.5% 20 ML VIAL ONE; +ceFAZolin(*) 2GM/D5W 50ML 50 ML IVPB ONE; +fentaNYL CITR 100 MCG/2 ML AMP ONE
[2019-01-13 14:48] VITALS: BP 130/78
--- NOTE | 2019-01-13 16:45 | Short(Outpt) Discharge Summary ---
Discharge Summary Reason for Hosp/Final Diag: (1) Cancer of appendix Status: Chronic Hospital Course & Plan: Right IJ Power Port placement completed without problems. (2) Peritoneal carcinomatosis Status: Chronic Departure Discharge to: Home, Self Care Discharge Instructions Home Meds Active Scripts Docusate Sodium (COLACE) 100 Mg Capsule, 1 CAP PO BID, #30 CAP 0 Refills TAKE WITH A FULL GLASS OF WATER Prov:KENA DIEZ MD 01/13/19 Oxycodone Hcl/Acet 5/325 Mg (ENDOCET 5-325 TABLET) 1 Each Tablet, 1 TAB PO Q4H PRN for PAIN, #15 TAB 0 Refills Prov:KENA DIEZ MD 01/13/19 Reported Medications Lorazepam (ATIVAN) 0.5 Mg Tablet, 0.5 MG PO Q6H PRN for ANXIETY take 0.5-1mg Q 6 hours prn for anxiety 01/12/19 Ondansetron Hcl (ZOFRAN) 4 Mg Tablet, 4 MG PO Q12H, TAB 01/12/19 Ondansetron Hcl (ZOFRAN) 4 Mg Tablet, 8 MG PO Q8H PRN for NAUSEA, TAB 01/12/19 Prochlorperazine Maleate (Compazine) 10 Mg Tablet, 10 MG PO Q6-8H PRN for NAUSEA 01/12/19 Polyethylene Glycol 3350 (MIRALAX) 17 Gm Powd.pack, 8.5 GM PO DAILY, PKT 12/07/18 Losartan Potassium (LOSARTAN POTASSIUM) 100 Mg Tablet, 100 MG PO QDAY 12/06/18 Atorvastatin Calcium (LIPITOR) 10 Mg Tablet, 1 TAB PO QDAY, TAB 02/27/18 Escitalopram Oxalate (Lexapro) 10 Mg Tab, 10 MG PO QDAY, 0 Refills 02/05/11 Hydrochlorothiazide (Hydrochlorothiazide) 25 Mg Tab, 25 MG PO QDAY, 0 Refills 02/05/11 Discontinued Reported Medications Dicyclomine Hcl (DICYCLOMINE HCL) 20 Mg Tablet, 20 MG PO DAILY 12/07/18 Diet: Regular Activity: As Tolerated Special Instructions: You may remove the white surgical dressing on your right upper chest on 01/14/19. You may shower starting on 01/15/19, but don't immerse the incisions for 2 weeks. After showering, leave the incisions open to air but leave the steristrips on until they fall off on their own. You have a suture in your right neck that SHOULD fall out in the next 2-3 weeks. If it doesn't, gently tug on it and see if it easily comes out but if it doesn't, talk to the Cancer Center staff and they can remove it or you can call my office at [phone] and we can have you come into to the clinic so we can remove the suture. KENA DIEZ MD Jan 13, 2019 16:45
--- NOTE | 2019-01-13 16:52 | Post Operative Progress Note ---
Post Operative Progress Note Date: Jan 13, 2019 Time: 16:45 Surgeon: Declan Dictation number: [id number] Anesthesia: LMA by Dr. Emmanuel Pre-Op Diagnosis: Appendiceal cancer with peritoneal carcinomatosis Post-Op Diagnosis: TATIANA Findings: None Procedure(s): Right IJ Power Port placement Specimen Removed:(May be N/A): None Complications: None Fluids: See anesthesia record Estimated Blood Loss: Minimal Date OP Note Dictated: Jan 13, 2019 Time OP Note Dictated: 16:46 KENA DIEZ MD Jan 13, 2019 16:52
--- NOTE | 2019-01-13 16:58 | RADIOLOGY IMAGING REPORT ---
[place]AC[place] [facility] [place] NAME: Kristina Parkinson : 1955 MR: [id number] V: [id number] EXAM DATE: ORDERING PHYSICIAN: KENA DIEZ TECHNOLOGIST: Location: [facility] [place] Patient: Kristina Parkinson : 1955 Visit/Account:[id number] Date of Sevice: 01/13/2019 FLUORO NG TUBE PLACEMENT Indication: PORT PLACEMENT Comparison: None. Findings: Images from right-sided port placement are available. The tip of the port appears in the midsuperior vena cava. IMPRESSION: Images from a right-sided port placement. Radiation dose: DAP 1.0341 Gycm2; AK 5.1294 mGy Report Dictated By: Kenney Ching at 01/13/2019 4:50 PM Report E-Signed By: Kenney Ching at 01/13/2019 4:53 PM WSN:[id number]
--- NOTE | 2019-01-13 17:09 | RADIOLOGY IMAGING REPORT ---
[place] [facility] [place] NAME: Kristina Parkinson : 1955 MR: [id number] V: [id number] EXAM DATE: ORDERING PHYSICIAN: KENA DIEZ TECHNOLOGIST: Location: [facility] [place] Patient: Kristina Parkinson : 1955 Visit/Account:[id number] Date of Sevice: 01/13/2019 CHEST SINGLE AP INDICATION: Right IJ Power Port placement COMPARISON: None available FINDINGS: Heart size within normal limits. A right-sided IJ port has been placed. Catheter tip is within the superior vena cava. There is no focal infiltrate or lobar consolidation. There is no pneumothorax or pleural effusion. IMPRESSION: 1. Appropriately positioned Mediport, no acute cardiopulmonary process Report Dictated By: Tre Cano at 01/13/2019 5:04 PM Report E-Signed By: Tre Cano at 01/13/2019 5:05 PM WSN:[id number]
[2019-01-13 17:30] VITALS: BP 121/79
[2019-01-13 17:45] VITALS: BP 123/90
[2019-01-13 17:48] VITALS: BP 124/74
[2019-01-13 17:50] VITALS: BP 113/79
--- NOTE | 2019-01-13 18:43 | NUR ---
1728 I WILL BE RESUMING CARE OF PATIENT FROM THE PACU. SEE PACU NOTES 1735 PATIENT CONTINUES TO EAT PUDDING AND APPLESAUCE. SHE STATES SHE IS FEELING WELL AND IS READY TO GO HOME 1748 BEGAN DOING ORTHOSTATICS WITH PATIENT. SHE DENIES ANY DIZZINESS OR LIGHTHEADEDNESS 1750 PATIENT WAS STABLE ON HER FEET 175 IV WAS SALINE LOCKED 1758 PATIENT BEGAN GETTING DRESSED 1815 PATIENTS WAS BROUGHT IN TO SEE PATIENT 1826 WENT OVER DC INSTRUCTIONS WITH PATIENT AND FAMILY. THEY VERBALIZED UNDERSTANDING 1830 IV WAS DC'D WITH CATH INTACT 1843 PATIENT WAS TAKEN OUT AND WAS AMBULATORY ON DISCHARGE. LUNGS ARE CLEAR. BOWEL SOUNDS ARE HYPERACTIVE. SHE HAS A SMALL AMOUNT OF BLEEDING ON HER DRESSINGS. DENIES ANY PAIN OR NAUSEA. SEE DISCHARGE ASSESSMENT.
--- NOTE | 2019-01-13 18:58 | OPERATIVE REPORT 1 ---
EVENT DATE: January 13, 2019 SURGEON: Addy Manriquez MD ANESTHESIOLOGIST: Isai Emmanuel MD ANESTHESIA: LMA. PREOPERATIVE DIAGNOSIS Appendiceal cancer with peritoneal carcinomatosis. POSTOPERATIVE DIAGNOSIS Appendiceal cancer with peritoneal carcinomatosis. PROCEDURE PERFORMED Right internal jugular PowerPort placement. COMPLICATIONS None. CONDITION Stable. BLOOD LOSS Minimal. INDICATIONS This is a 63-year-old female referred to me by the Cancer Center after recently having been diagnosed with an appendiceal cancer, unfortunately, stage IV with peritoneal carcinomatosis. They are requesting a PowerPort so they can start chemotherapy. DESCRIPTION OF PROCEDURE The patient was brought to the operating room and placed upon the operating table. LMA anesthesia was administered, and her right chest, shoulder, and neck were prepped and draped in a sterile fashion. Timeout was completed, and with her in Trendelenburg, I used the ultrasound. I identified the right internal jugular vein and used the access needle and accessed the vein on one attempt with no problems. I threaded the wire through the needle and removed the needle, and then I used the C-arm to confirm the wire position in the SVC. I then anesthetized the skin in the right neck where the wire entered the skin and then in the right infraclavicular skin. I made a stab incision in the skin where the wire entered the skin and then made a transverse incision in the right infraclavicular skin. I dissected through the dermis and subcutaneous fat and then created a pocket caudad to the incision mostly with blunt dissection with my finger. I then made this hemostatic with electrocautery. I then used the tunneler and pulled the catheter from the pocket up to the stab incision in the neck, and with the patient in Trendelenburg, threaded the dilator and sheath over the wire, and then removed the wire and dilator. I then threaded the catheter through the sheath and removed the sheath. I then used the C-arm fluoroscope to pull the catheter back so the tip was in the SVC just above the right atrium. I then cut the catheter to length, placed the port on the catheter, and locked it into place with the locking device. I then sutured the port to the underlying muscle fascia with 2-0 nylon at the corners. I then aspirated blood and then flushed it with 10 mL of normal saline. It aspirated and flushed with no problems. I then flushed it with 5 mL of 100 units/mL of heparinized saline. I then took my C-arm images to confirm good positioning of the port and catheter, and it looked good. I then placed a single chromic suture in the stab incision in the neck and then closed the skin incision in the right infraclavicular region with interrupted 3-0 Vicryl deep dermal sutures and 4-0 Monocryl running subcuticular suture. Skin was cleaned and dried, and then Steri-Strips were applied over each incision. The patient was awakened and LMA removed. She was transported to the recovery room in stable condition having tolerated the procedure without any apparent problems. YOANNA
== END ==
LOC: OR 01:56
PROVIDERS: ATTEND Surgery
DX: C18.1 Malignant neoplasm of appendix (principal); C78.6 Secondary malignant neoplasm of retroperitoneum and peritoneum
CPT/HCPCS: 36561; 71045; 77001; J1100; J2405; J2704; J2795; J3010; C1788; J0690

== ENCOUNTER 2019-03-03 15:45 | Emergency (ER) | payer OTHER ==
[~2019-03-03 15:45] MED LIST changes: -DEXAMETHASONE SOD PHOS 10MG/ML ONE; -FAMOTIDINE 20 MG TAB PO ONE; -HEPARIN SOD LCK FLSH 100 UN/ML ONE; -LIDOCAINE/SOD BICARB 8.4% SYR ID ONE; -MIDAZOLAM 2 MG/2 ML VIAL IVP PRN; -NORMOSOL R SOLN(*) 1000 ML BAG 1,000 ML IV PRN; -NS(*) 0.9% 10 ML VIAL 20 ML ONE; +OMEP40CA48 PO; -ONDANSETRON 4 MG/2 ML VIAL ONE; +POTA-23 PO; -PROPOFOL EMUL(*) 10MG/ML 20 ML 20 ML ONE; -ROPIVACAINE 0.5% 20 ML VIAL ONE; +SANCUSOPT TD; +TRAM-420 PO; -ceFAZolin(*) 2GM/D5W 50ML 50 ML IVPB ONE; -fentaNYL CITR 100 MCG/2 ML AMP ONE
[2019-03-03 15:53] VITALS: BP 109/80
--- NOTE | 2019-03-03 15:55 | ER Report ---
History and Physical Time Seen By MD: 15:55 HPI/ROS CHIEF COMPLAINT: Confusion HISTORY OF PRESENT ILLNESS: This is a 63-year-old female who presents to emergency department with her for confusion. 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 She has been receiving chemotherapy through the 5-FU pump, the pump was removed today. According to oncology staff and the patient's and her , she's had increased confusion since this past Wednesday, we'll have moments of clarity however it does sound as though she's been potentially mixing up her medications. She was also recently started on tramadol. She has also been fatigued. Cancer center did send the patient in for further evaluation, and CT of the brain. Denies chest pain, headaches, shortness of breath, no nausea or vomiting. No diarrhea. No visual disturbances or any other complaints. REVIEW OF SYSTEMS: Constitutional: No fever, no chills. Eyes: No discharge. ENT: No sore throat. Cardiovascular: No chest pain, no palpitations. Respiratory: No cough, no shortness of breath. Gastrointestinal: No abdominal pain, no vomiting. Genitourinary: No hematuria. Musculoskeletal: No back pain. Skin: No rashes. Neurological: As above. Allergies: Coded Allergies: No Known Drug Allergies (Verified , 03/03/19) Home Meds Active Scripts Tramadol Hcl (TRAMADOL HCL) 50 Mg Tablet, 50-100 MG PO Q 6 hours PRN for PAIN for 10 Days, #50 TAB 0 Refills take 1-2 tablets every 6 hours PRN Pain Prov:SALOME GARCIA APRN,[employer]EL[employer] 02/27/19 Granisetron Hcl (SANCUSO) 3.1 Mg/24 Hr Patch.td24, 3.1 MG TD Q 7 days for Nausea, #4 MG 1 Refill Prov:SALOME GARCIA APRN,[employer] DEVELOPER 02/10/19 Potassium Chloride (KLOR-CON 10) 10 Meq Tablet.er, 20 MEQ PO QDAY for 30 Days, #60 MEQ 1 Refill take 2 tabs for total daily dose of 20 mEq Prov:SALOME GARCIA APRN,[employer] DEVELOPER 01/23/19 Omeprazole (OMEPRAZOLE) 40 Mg Capsule.dr, 40 MG PO QDAY for 30 Days, #30 CAP 2 Refills Prov:SALOME GARCIAELLE DIRECTOR OF CONSERVATION,[employer] DEVELOPER 01/23/19 Reported Medications Lorazepam (ATIVAN) 0.5 Mg Tablet, 0.5 MG PO Q6H PRN for ANXIETY take 0.5-1mg Q 6 hours prn for anxiety 01/12/19 Losartan Potassium (LOSARTAN POTASSIUM) 100 Mg Tablet, 100 MG PO QDAY 12/06/18 Escitalopram Oxalate (Lexapro) 10 Mg Tab, 10 MG PO QDAY, 0 Refills 02/05/11 Hydrochlorothiazide (Hydrochlorothiazide) 25 Mg Tab, 25 MG PO QDAY, 0 Refills 02/05/11 Discontinued Reported Medications Ondansetron Hcl (ZOFRAN) 4 Mg Tablet, 4 MG PO Q12H, TAB 01/12/19 Ondansetron Hcl (ZOFRAN) 4 Mg Tablet, 8 MG PO Q8H PRN for NAUSEA, TAB 01/12/19 Prochlorperazine Maleate (Compazine) 10 Mg Tablet, 10 MG PO Q6-8H PRN for NAUSEA 01/12/19 Polyethylene Glycol 3350 (MIRALAX) 17 Gm Powd.pack, 8.5 GM PO DAILY, PKT 12/07/18 Atorvastatin Calcium (LIPITOR) 10 Mg Tablet, 1 TAB PO QDAY, TAB 02/27/18 Discontinued Scripts Oxycodone Hcl/Acet 5/325 Mg (ENDOCET 5-325 TABLET) 1 Each Tablet, 1 TAB PO Q4H PRN for PAIN, #15 TAB 0 Refills Prov:KENA DIEZ MD 01/13/19 Past Medical/Surgical History The patient has a past medical and surgical history of hypertension, hype rcholesterolemia, GERD, colon cancer, gallbladder disease, left ovarian mass from colon cancer, degenerative disc disease and back and neck, wears glasses and contacts, anxiety, depression, colon cancer, breast augmentation, menopause, ganglion cyst right wrist, right wrist plates and screws secondary to a fall. Reviewed Nurses Notes: Yes Hx Smoking: No Smoking Status: Never Smoker Hx Substance Use Disorder: No Hx Alcohol Use: No Constitutional Vital Sign - Last 24 Hours 03/03/19 03/03/19 03/03/19 03/03/19 15:53 16:00 16:30 17:00 Temp 97.7 Pulse 104 89 80 75 Resp 18 B/P (MAP) 109/80 Pulse Ox 92 93 92 93 O2 Delivery Room Air 03/03/19 03/03/19 03/03/19 03/03/19 17:30 18:30 18:35 19:05 Pulse 72 65 70 66 Pulse Ox 90 94 96 92 Physical Exam General Appearance: The patient is alert, has no immediate need for airway protection and no signs of toxicity. Eyes: Pupils equal and round no pallor or injection. ENT, Mouth: Mucous membranes are moist. Respiratory: There are no retractions, lungs are clear to auscultation. Cardiovascular: Regular rate and rhythm. Gastrointestinal: Abdomen is soft and non tender, no masses, bowel sounds normal. Neurological: Alert and oriented 4. Moving all extremities. Following all commands. No focal neuro deficits. The patient will correct herself when she realizes that the information that she's providing is not accurate, but does take her several moments to think about this past week. Skin: Warm and dry, no rashes. Musculoskeletal: Neck is supple non tender. Extremities are nontender, nonswollen and have full range of motion. DIFFERENTIAL DIAGNOSIS: After history and physical exam differential diagnosis was considered for medication interaction, metastasis to the brain, fatigue, chemotherapy side effect. Medical Decision Making Data Points Result Diagram: 03/03/19 1631 03/03/19 1631 Laboratory Hematology Test 03/03/19 16:31 03/03/19 18:16 Red Blood Count 3.77 M/uL (4.17-5.56) Mean Corpuscular Volume 92.1 fL (80.0-96.0) Mean Corpuscular Hemoglobin 31.2 pg (26.0-33.0) Mean Corpuscular Hemoglobin Concent 33.9 g/dL (32.0-36.0) Red Cell Distribution Width 15.0 % (11.5-14.5) Mean Platelet Volume 6.4 fL (7.2-11.1) Neutrophils (%) (Auto) 93.7 % (39.4-72.5) Lymphocytes (%) (Auto) 4.1 % (17.6-49.6) Monocytes (%) (Auto) 2.0 % (4.1-12.4) Eosinophils (%) (Auto) 0.0 % (0.4-6.7) Basophils (%) (Auto) 0.2 % (0.3-1.4) Nucleated RBC Relative Count (auto) 0.0 /100WBC Neutrophils # (Auto) 11.3 K/uL (2.0-7.4) Lymphocytes # (Auto) 0.5 K/uL (1.3-3.6) Monocytes # (Auto) 0.2 K/uL (0.3-1.0) Eosinophils # (Auto) 0.0 K/uL (0.0-0.5) Basophils # (Auto) 0.0 K/uL (0.0-0.1) Nucleated RBC Absolute Count (auto) 0.00 K/uL Peripheral Blood Smear Yes Y/N Sodium Level 130 mmol/L (137-145) Potassium Level 3.0 mmol/L (3.5-5.0) Chloride Level 95 mmol/L (98-107) Carbon Dioxide Level 27 mmol/L (22-31) Blood Urea Nitrogen 24 mg/dl (7-18) Creatinine 0.70 mg/dl (0.52-1.04) Glomerular Filtration Rate Calc > 60.0 Random Glucose 149 mg/dl (75-110) Calcium Level 8.7 mg/dl (8.4-10.2) Total Bilirubin 0.5 mg/dl (0.2-1.3) Aspartate Amino Transf (AST/SGOT) 33 U/L (0-35) Alanine Aminotransferase (ALT/SGPT) 68 U/L (0-56) Alkaline Phosphatase 115 U/L (0-126) Total Protein 5.8 g/dl (6.3-8.2) Albumin 3.3 g/dl (3.5-5.0) Urine Color Straw Urine Clarity Clear Urine pH 7.0 pH (4.8-9.5) Urine Specific Nelson 1.004 Urine Protein Negative mg/dL (NEGATIVE) Urine Glucose (UA) Negative mg/dL (NEGATIVE) Urine Ketones Negative mg/dL (NEGATIVE) Urine Blood Negative (NEGATIVE) Urine Nitrite Negative (NEGATIVE) Urine Bilirubin Negative (NEGATIVE) Urine Urobilinogen Negative mg/dL (0.2-1.9) Urine Leukocyte Esterase Negative (NEGATIVE) Urine RBC 1 /HPF (0-2/HPF) Urine WBC 2 /HPF (0-5/HPF) Urine Squamous Epithelial Cells Moderate /LPF (</=FEW) Urine Transitional Epithelial Cells Few /LPF (NONE-FEW) Urine Bacteria Negative /HPF (NONE-FEW) Urine Mucus None /HPF (NONE-FEW) Chemistry Test 03/03/19 16:31 03/03/19 18:16 White Blood Count 12.1 k/uL (4.5-11.0) Red Blood Count 3.77 M/uL (4.17-5.56) Hemoglobin 11.8 g/dL (12.0-16.0) Hematocrit 34.8 % (34.0-47.0) Mean Corpuscular Volume 92.1 fL (80.0-96.0) Mean Corpuscular Hemoglobin 31.2 pg (26.0-33.0) Mean Corpuscular Hemoglobin Concent 33.9 g/dL (32.0-36.0) Red Cell Distribution Width 15.0 % (11.5-14.5) Platelet Count 277 K/uL (150-450) Mean Platelet Volume 6.4 fL (7.2-11.1) Neutrophils (%) (Auto) 93.7 % (39.4-72.5) Lymphocytes (%) (Auto) 4.1 % (17.6-49.6) Monocytes (%) (Auto) 2.0 % (4.1-12.4) Eosinophils (%) (Auto) 0.0 % (0.4-6.7) Basophils (%) (Auto) 0.2 % (0.3-1.4) Nucleated RBC Relative Count (auto) 0.0 /100WBC Neutrophils # (Auto) 11.3 K/uL (2.0-7.4) Lymphocytes # (Auto) 0.5 K/uL (1.3-3.6) Monocytes # (Auto) 0.2 K/uL (0.3-1.0) Eosinophils # (Auto) 0.0 K/uL (0.0-0.5) Basophils # (Auto) 0.0 K/uL (0.0-0.1) Nucleated RBC Absolute Count (auto) 0.00 K/uL Peripheral Blood Smear Yes Y/N Glomerular Filtration Rate Calc > 60.0 Calcium Level 8.7 mg/dl (8.4-10.2) Total Bilirubin 0.5 mg/dl (0.2-1.3) Aspartate Amino Transf (AST/SGOT) 33 U/L (0-35) Alanine Aminotransferase (ALT/SGPT) 68 U/L (0-56) Alkaline Phosphatase 115 U/L (0-126) Total Protein 5.8 g/dl (6.3-8.2) Albumin 3.3 g/dl (3.5-5.0) Urine Color Straw Urine Clarity Clear Urine pH 7.0 pH (4.8-9.5) Urine Specific Nelson 1.004 Urine Protein Negative mg/dL (NEGATIVE) Urine Glucose (UA) Negative mg/dL (NEGATIVE) Urine Ketones Negative mg/dL (NEGATIVE) Urine Blood Negative (NEGATIVE) Urine Nitrite Negative (NEGATIVE) Urine Bilirubin Negative (NEGATIVE) Urine Urobilinogen Negative mg/dL (0.2-1.9) Urine Leukocyte Esterase Negative (NEGATIVE) Urine RBC 1 /HPF (0-2/HPF) Urine WBC 2 /HPF (0-5/HPF) Urine Squamous Epithelial Cells Moderate /LPF (</=FEW) Urine Transitional Epithelial Cells Few /LPF (NONE-FEW) Urine Bacteria Negative /HPF (NONE-FEW) Urine Mucus None /HPF (NONE-FEW) Urinalysis Test 03/03/19 18:16 Urine Color Straw Urine Clarity Clear Urine pH 7.0 pH (4.8-9.5) Urine Specific Nelson 1.004 Urine Protein Negative mg/dL (NEGATIVE) Urine Glucose (UA) Negative mg/dL (NEGATIVE) Urine Ketones Negative mg/dL (NEGATIVE) Urine Blood Negative (NEGATIVE) Urine Nitrite Negative (NEGATIVE) Urine Bilirubin Negative (NEGATIVE) Urine Urobilinogen Negative mg/dL (0.2-1.9) Urine Leukocyte Esterase Negative (NEGATIVE) Urine RBC 1 /HPF (0-2/HPF) Urine WBC 2 /HPF (0-5/HPF) Urine Squamous Epithelial Cells Moderate /LPF (</=FEW) Urine Transitional Epithelial Cells Few /LPF (NONE-FEW) Urine Bacteria Negative /HPF (NONE-FEW) Urine Mucus None /HPF (NONE-FEW) EKG/Imaging Imaging PATIENT NAME: Kristina Parkinson : 1955 MR: [id number] V: [id number] EXAM DATE: ORDERING PHYSICIAN: JEAN PIERRE KENNEDY TECHNOLOGIST: Location: [facility] [place] Patient: Kristina Parkinson : 1955 Visit/Account:[id number] Date of Sevice: 03/03/2019 CT Head without contrast Indication: Confusion. Comparison: 02/27/2018. Technique: Axial CT images were obtained through the brain from the skull base to the vertex without administration of IV contrast. Reformatted coronal and sagittal images were also obtained. One of the following dose optimization techniques was utilized in the performance of this exam: automated exposure control; adjustment of the mA and/or kV according to the patient's size; or use of an iterative reconstruction technique. Specific details can be referenced in the facility's radiology CT exam operational policy. Findings: No evidence of mass, mass effect, or midline shift. No acute intracranial hemorrhage or acute territorial infarction. No extra-axial fluid collection or hydrocephalus. Mild age-related cerebral atrophy. Minimal periventricular white matter ischemic changes consistent small vessel disease. Donahue/white matter differentiation appears normal. Bony structures show no fractures or lesions. The visualized paranasal sinuses and mastoid air cells are clear. IMPRESSION: 1. Senescent changes without acute abnormality. Report Dictated By: Po Garcia at 03/03/2019 5:16 PM Report E-Signed By: Po Garcia at 03/03/2019 5:20 PM [id number] ED Course/Re-evaluation ED Course The patient was admitted to room. A history of physical were obtained. Differential diagnoses were considered. The patient's port was accessed. A CBC, CMP were obtained. CBC 12.1, consistent with her history of data,Chemistry showing sodium 1:30, potassium 3.0, AST normal, ALT 68, significant improvement in liver enzymes from previous studies, negative UA. CT of the brain showing Senescent changes without acute abnormality. The results were reviewed with the patient and her . Patient was also given a liter of saline. The case was discussed with Carmela Pearce as noted below, we agreed that the patient would be able to go home, the and patient both felt this was okay as well, she will not use her tramadol for the next couple of days as her liver enzymes have improved she will take Tylenol as needed for the pain. If the Tylenol is not working she will try a half dose of the tramadol, if still unsuccessful and continues to have confusion, they will return to the ER for any concerns. They were agreeable with this plan of care and discharged home. 03/03/2019 6:11:10 pm I did speak with Carmela Pearce, the clerical support specialist on-call, we did review the patient's case and findings, she denied both felt that the patient would safely be able to go home. Either eliminating the tramadol completely for the next couple days or at least cutting it in half and using Tylenol for her pain as her liver enzymes are significant only improved. Decision to Disposition Date: Mar 03, 2019 Decision to Disposition Time: 19:15 Depart Departure Latest Vital Signs Vital Signs Date Time Temp Pulse Resp B/P (MAP) Pulse Ox O2 Delivery O2 Flow Rate FiO2 03/03/19 19:05 66 92 03/03/19 15:53 97.7 18 109/80 Room Air Impression: Primary Impression: Cancer of appendix Additional Impression: Confusion Condition: Improved Disposition: HOME OR SELF-CARE Patient Instructions: Eating During Cancer Treatment (DC) Additional Instructions: Of the laboratory studies, including the liver enzymes are improved. The CT of the brain did not show anything concerning today. Please do not take the tramadol for the next 2 days, as a liver enzymes have improved you can go ahead and take the extra strength Tylenol 1000 mg every 8 hours as needed for pain. If this is not working and U failure must have a another tramadol, start with a half dose. Be sure to drink plenty of water. Get plenty of rest. Continue with your regular medication regimen. If you need to return to the ER for any other concerns or worsening symptoms please do so. Problem Qualifiers JEAN PIERRE KENNEDY J[employer] G[employer]ILS DEVELOPER-BC Mar 03, 2019 15:55
[2019-03-03] MEDS ORDERED: NS(*) 0.9% 1000 ML BAG 1,000 ML IV ONE (16:15)
[2019-03-03 16:43] LABS: PLATELET COUNT, AUTOMATED 277 K/uL (150-450)
--- NOTE | 2019-03-03 17:23 | RADIOLOGY IMAGING REPORT ---
FACILITY[place] [facility] [place] PATIENT NAME: Kristina Parkinson : 1955 MR: [id number] V: [id number] EXAM DATE: ORDERING PHYSICIAN: JEAN PIERRE KENNEDY TECHNOLOGIST: Location: [facility] Patient: Kristina Parkinson : 1955 Visit/Account:[id number] Date of Sevice: 03/03/2019 CT Head without contrast Indication: Confusion. Comparison: 02/27/2018. Technique: Axial CT images were obtained through the brain from the skull base to the vertex without administration of IV contrast. Reformatted coronal and sagittal images were also obtained. One of the following dose optimization techniques was utilized in the performance of this exam: autom ated exposure control; adjustment of the mA and/or kV according to the patient's size; or use of an i terative reconstruction technique. Specific details can be referenced in the facility's radiology CT exam operational policy. Findings: No evidence of mass, mass effect, or midline shift. No acute intracranial hemorrhage or acute territorial infarction. No extra-axial fluid collection or hydrocephalus. Mild age-related cerebral atrophy. Minimal perivent ricular white matter ischemic changes consistent small vessel disease. Donahue/white matter differentiat ion appears normal. Bony structures show no fractures or lesions. The visualized paranasal sinuses and mastoid air cells are clear. IMPRESSION: 1. Senescent changes without acute abnormality. Report Dictated By: Po Garcia at 03/03/2019 5:16 PM Report E-Signed By: Po Garcia at 03/03/2019 5:20 PM [id number]
[2019-03-03] MEDS ORDERED: HEPARIN FLSH (PORT) 500 UN/5ML ONE (19:42)
[2019-03-06] MEDS ORDERED: ACET500T68 PO (11:21)
[2019-03-06] MEDS ORDERED: LORA-630 PO (16:35)
== END 2019-03-03 19:50 | disposition home or self-care (01) ==
LOC: ER 16:15
DX: R41.0 Disorientation, unspecified (principal); C18.1 Malignant neoplasm of appendix
CPT/HCPCS: 70450; 81001; 85025; 96360; 96361; 99284; J7030; 82040; 82247; 82310; 82374; 82435; 82565; 82947; 84075; 84132; 84155; 84295; 84450; 84460; 84520

== ENCOUNTER 2019-03-30 09:04 | Outpatient (RCR) | payer OTHER ==
[2019-01-04 15:47] VITALS: BP 137/88
--- NOTE | 2019-01-06 13:15 | NUR ---
JACK rec'd a request from pt to schedule a nutrition consult with the nutitionist. JACK made contact with Marion Silva who called the pt and scheduled her for Wednesday01/11/19.
[2019-01-11 15:09] VITALS: BP 124/80
--- NOTE | 2019-01-12 11:20 | ONCOLOGY HISTORY AND PHYSICAL ---
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 CHIEF COMPLAINT Bowel irregularity. 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 She relates her history to me today. Toward the end of 2017, she started having problems with her bowel movements. They had become more and more difficult to pass, at times with significant pain. She had initially presented with these symptoms and it was thought potentially that it was related to her diet. She made some changes in this regard. She eventually underwent a CT scan of the chest, abdomen and pelvis on December 12, 2018. This scan showed numerous matted loops of small bowel in the left abdomen as well as infiltrative changes in nodularity of the omentum. There was a complex structure of or near the left adnexa measuring 4.1 x 2.8 cm as well as a 2 mm subpleural nodule in the left lower lobe. She was referred for colonoscopy, which occurred on December 15. The colonoscopy revealed a mass at the cecum, which was biopsied. Initial pathology evaluation was indicative of invasive colonic adenocarcinoma. Second opinion at [facility] showed a poorly-differentiated adenocarcinoma. The patient also underwent an MRI of the abdomen. 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 This was compared to prior studies and it was felt to be getting smaller, potentially, but at least stable. Kristina Veliz then was seen at the [facility] by Dr. Meade and his team. Pathology was reviewed as well as imaging. The recommendation was made for her to receive chemotherapy with FOLFOX to start. The plan was for her to have two months of FOLFOX (four cycles) and to have her undergo re- imaging, depending on response and then continue with another four cycles of FOLFOX. There was potential plan for her to undergo surgical debulking with HIPEC. Today, Kristina is here with her daughter. She reports that she is feeling physically about the same but this has been an understandably difficult time. She has had a lot of things going on at home as well. Stress levels have been very high. 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 She wants to get started with chemotherapy as soon as possible and she is eager to do this close to home, here at [facility]. REVIEW OF SYSTEMS Otherwise negative and all systems reviewed. PAST MEDICAL HISTORY 1. Hypertension. 2. Hypercholesterolemia. 3. Patient reports history of anxiety, currently on Lexapro. CURRENT MEDICATIONS MiraLAX, dicyclomine, losartan, atorvastatin, Lexapro and hydrochlorothiazide. ALLERGIES No known drug allergies. SOCIAL HISTORY The patient is a nurse. She is a never smoker. There is no history of illicit drug abuse or alcohol abuse. FAMILY HISTORY There is a reported family history of colon cancer in her father, who at 54 of the colon cancer. PHYSICAL EXAMINATION VITAL SIGNS: Temperature 96.9, blood pressure 137/88, heart rate 75, respirations 16, oxygen saturation 91% on room air. GENERAL: Patient is alert and oriented x3, no apparent distress, sitting in exam room chair. She is in good spirits and quite interactive. HEENT: Anicteric sclerae. No significant oropharyngeal lesions. NEUROLOGIC: Grossly nonfocal. Gait is normal. SKIN: No concerning rash or lesion. EXTREMITY: No edema, clubbing or cyanosis. There is no erythema or tenderness to palpation. LABORATORY STUDIES Reviewed per the [facility]. IMAGING Please see history and present illness. PATHOLOGY Please see history and present illness. 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 I had a lengthy and in-depth discussion with her daughter today. We were joined for the majority of today's visit by Violet Quigley, nurse practitioner. We spent a good deal of time reviewing her presenting symptoms and we moved on to discuss her workup to date to include CT, colonoscopy with cecal biopsy and liver MRI. We discussed the diagnosis of colonic/appendiceal high-grade adenocarcinoma as well as CT imaging findings that are quite concerning for peritoneal carcinomatosis. She is well aware of these findings. She had a good visit with Dr. Meade and his team at the [facility] recently. The recommendation has been made for her to receive FOLFOX chemotherapy up front for four cycles (two months). She will then undergo re-imaging with CT. Depending on findings, she would then continue with another four cycles of FOLFOX and consideration is being given to surgical debulking and HIPEC. We discussed these plans in detail and the patient is very well-informed at this time. We moved on to discuss the FOLFOX chemotherapy regimen including common risks and toxicities. The patient's next step will be to undergo treatment education and we discussed central venous access to include port and PICC line. We discussed support service is available here as well as other opportunities for supportive care to include Integrative Medicine at the [facility]. Patient would like to give these options some thought. I do see in her family history that her father had at age 54 from colon cancer. I am not certain whether genetic counseling/testing had been discussed previously but this will be explored further at followup visits. We moved on to discuss her high level of stress at home and counseling has been offered. We discussed goals of care including the patient's desire to continue working as a nurse and to enjoy her family. The patient and her daughter had multiple insightful and appropriate questions for me today and I believe I answered all of their questions to their satisfaction. I will see her back for a followup in the next month here at my [facility]. Thank you very much, Dr. Meade, for allowing me to be involved with this delightful patient. Please do not hesitate to call with any questions or concerns. I spent a total of 70 minutes of time [id number] with the patient and her daughter today and 65 minutes of this was spent in direct counseling and coordination of care. YOANNA
--- NOTE | 2019-01-13 03:40 | ONCOLOGY CHEMO TEACHING ---
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 The patient is seen today for chemotherapy teaching. A total of 60 minutes was spent with Ms. Parkinson, 100% of which was [id number] counseling. 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 Towards the end of 2018, she started having problems with her bowel movements. They have become more and more difficult to pass, and at times she had significant associated pain. She had initially presented with these symptoms, and it was thought potentially that it was related to her diet. She made some dietary changes in that regard. She eventually underwent a CT scan of the chest, abdomen and pelvis on December 12, 2018. That scan numerous matted loops of small bowel in the left abdomen as well as infiltrative changes and nodularity of the omentum. There was a complex structure of or near the left adnexa measuring 4.1 x 2.8 cm as well as a 2 mm subpleural nodule in the left lower lobe. She was referred for colonoscopy, which occurred 12/15/2018. Colonoscopy revealed a mass at the cecum, which was biopsied. Initial pathology evaluation was indicative of invasive colonic adenocarcinoma. Second opinion at [facility] showed a poorly differentiated adenocarcinoma. She then underwent an MRI of the abdomen. 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 This was compared to prior studies, and it was felt to be getting smaller, potentially, but at least stable. Kristina Veliz then was seen at the [facility] by Dr. Meade and his team. Pathology was reviewed as well as imaging. Recommendation was made for her to receive chemotherapy with FOLFOX to start. Plan is for her to have two months of FOLFOX, four doses, followed by re-imaging, and depending on response, either continuation with another four doses or two months of FOLFOX. There is also potential plan for her to undergo surgical debulking with HIPEC. She had a long consultation with Dr. Adrian last week. She has the same physical complaints that she noted last week, most related to bowels and dietary sensitivities, but otherwise feels well/stable physically at this time. She does have some psychosocial stressors, and reports that her stress levels have been very high. She wants to continue working as a public health nurse. She will also be adopting two of her grandchildren in the near future. She is anxious to get started with chemotherapy as soon as possible, and is eager to do this closer to home, here in [place] at [facility]. PAST MEDICAL HISTORY 1. Hypertension. 2. Hypercholesterolemia. 3. Patient reports history of anxiety, currently on Lexapro. CURRENT MEDICATIONS 1. MiraLAX. 2. Dicyclomine. 3. Losartan. 4. Atorvastatin. 5. Lexapro. 6. Hydrochlorothiazide. ALLERGIES No known drug allergies. SOCIAL HISTORY The patient works as a public health nurse. She is a never-smoker. There is no history of illicit drug abuse or alcohol abuse. FAMILY HISTORY There is reported family history of colon cancer in her father, who at 54 of colon cancer. DISCUSSION 1. A total of 60 minutes was spent in counseling today, 100% of which was face to face. At today's chemotherapy teaching session we discussed her diagnosis as well as the planned chemotherapy regimen and toxicities associated with FOLFOX: Oxaliplatin, leucovorin, fluorouracil (5-FU), given every two weeks. Handouts of each drug were provided and reviewed in detail. 2. Side effects and toxicities of chemotherapy agents included, but were not limited to: A. Bone marrow suppression, specifically neutropenia. She is instructed to contact our offices with any signs of infection. CBC will be monitored routinely. We discussed common sense approaches including routine hand washing and avoidance of crowds/sick people if neutropenic. B. GI side effects. Discussed the possibility of nausea, vomiting, diarrhea and constipation. She will receive IV antiemetics and will be prescribed antiemetics for home use. If she were to have diarrhea, recommended Imodium. If she were to have constipation, recommended Senna-S or Miralax routinely. Further interventions will be made based on side effects. C. side effects. Discussed the importance of adequate hydration (minimum 8 cups of fluid per day) and emptying the bladder on a regular basis. IV hydration can be scheduled as needed. D. Mouth sores. Recommended salt water or baking soda gargles as needed. E. Skin toxicity. Discussed that chemotherapy was very drying to the skin and mucous membranes. Recommended routine moisturizing as well as sun protection. F. Neurotoxicity. Discussed symptoms of peripheral neuropathy. She will be monitored of these symptoms and will notify us if progressive. G. Alopecia. Discussed with patient that complete alopecia is not commonly seen on this regimen, though hair thinning is very possible. We are holding off on writing a prescription for cranial prosthesis, although patient can certainly inform us if she wishes to receive prescription. There are also resources here in the clinic for her. H. Fatigue. Discussed that this is one of the most common complaints of patients undergoing chemotherapy. I have encouraged her to remain as active as possible, taking frequent rests as needed. I. Infusion reaction. Reviewed IV premedications. She will be monitored closely during infusions. J. Reproductive Health: Discussed importance of preventing while on chemotherapy. Discussed control options and fertility preservation. Also, to abstain from sexual intercourse for 2-3 days after chemotherapy administration. 3. I have instructed the patient to call our office if she is prescribed any new medications. It is recommended that multiple supplements or herbal medications may not be taken as these may interfere with the action of the chemotherapy. 4. Discussed dietary issues associated with chemotherapy including anorexia and changes in taste. A handout of nutrition information is given. 5. Office contact information ([phone]) is given. I have encouraged the patient to call with any issues regarding treatment. 6. A tour of the infusion room is given. She is given a packet of information including all of the above. 7. Patient is scheduled for Port-A-Cath placement this coming Wednesday. 8. Patient was given a visual on what the 5-FU pump looks like during our chemotherapy teaching session today. 9. Patient will return to clinic next week to initiate Cycle #1, Day 1 with FOLFOX. 10. Patient will return to clinic for followup as scheduled. MTDD
[2019-01-16 09:14] VITALS: BP 103/80
[2019-01-16] MEDS: LIDOCAINE/SOD BICARB 8.4% SYR ID PRN (09:25)
[2019-01-16] MEDS: NS(*) 0.9% 500 ML BAG 500 ML IV PRN (09:26)
[2019-01-16] MEDS: PALONOSETRON 0.25 MG/5 ML VIAL IVP PRN (12:05)
[2019-01-16] MEDS: DEXAMETHASONE SOD PHOS 10MG/ML IVP PRN (12:05)
[2019-01-16] MEDS: DEXTROSE 5%(*) 100 ML BAG 100 ML IVPB PRN (12:40)
[2019-01-16] MEDS: PROMETHAZINE 25 MG/ML 1 ML AMP IVP PRN ×2 (13:27→15:08)
--- NOTE | 2019-01-16 13:53 | NUR ---
Pt completed initial HADS form. PT scored D:0, A:5. Pt reports no concerns and states she has been taking Lexapro for many years and it is very helpful for her anxiety.
[2019-01-16 16:09] VITALS: BP 124/87
[2019-01-18 14:19] VITALS: BP 116/65
[2019-01-18] MEDS: HEPARIN FLSH (PORT) 500 UN/5ML IVP PRN (14:21)
[2019-01-23 14:07] VITALS: BP 116/63
[2019-01-23 14:19] LABS: PLATELET COUNT, AUTOMATED 254 K/uL (150-450)
[2019-01-23] MEDS: LIDOCAINE/SOD BICARB 8.4% SYR ID PRN (15:29)
[2019-01-23] MEDS: HEPARIN FLSH (PORT) 500 UN/5ML IVP PRN (15:30)
--- NOTE | 2019-01-24 06:06 | ONCOLOGY FOLLOW UP NOTE ---
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 Towards the end of 2018, she started having problems with her bowel movements. They have become more and more difficult to pass, and at times she had significant associated pain. She had initially presented with these symptoms, and it was thought potentially that it was related to her diet. She made some dietary changes in that regard. She eventually underwent a CT scan of the chest, abdomen and pelvis on December 12, 2018. That scan revealed numerous matted loops of small bowel in the left abdomen as well as infiltrative changes and nodularity of the omentum. There was a complex structure of or near the left adnexa measuring 4.1 x 2.8 cm as well as a 2 mm subpleural nodule in the left lower lobe. She was referred for colonoscopy, which occurred 12/15/2018. Colonoscopy revealed a mass at the cecum, which was biopsied. Initial pathology evaluation was indicative of invasive colonic adenocarcinoma. Second opinion at [facility] showed a poorly differentiated adenocarcinoma. She then underwent an MRI of the abdomen. 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 This was compared to prior studies, and it was felt to be getting smaller, potentially, but at least stable. Kristina Veliz then was seen at the [facility] by Dr. Meade and his team. Pathology was reviewed as well as imaging. Recommendation was made for her to receive chemotherapy with FOLFOX to start. Plan is for her to have two months of FOLFOX, four doses, followed by re-imaging, and depending on response, either continuation with another four doses or two months of FOLFOX. There is also potential plan for her to undergo surgical debulking with HIPEC. She has continued to report the same physical complaints, mostly related to bowels and dietary sensitivities. She has also had some psychosocial stressors and has recently reported that her stress levels have been very high. She continues working as a public health nurse. She will also be adopting two of her grandchildren in the near future. She initiated Cycle #1 day 1 with FOLFOX last week. She is here for standard toxicity check. She had nausea and vomiting on day 1 of chemotherapy, which began prior to starting any treatment. She has Compazine, Zofran, and lorazepam tablets at home as part of her home antiemetic regimen. Today she tells me that she has felt nauseous, or "has felt green," pretty much every day since initiating chemotherapy. She says that she has had nausea most days, with about two episodes of vomiting each day. She has not had very much food intake, but tells me that she is maintaining her liquids with approximately 1.5L of fluid every day. Certain foods make her sick. She has also had diarrhea with occasional fluctuation with constipation. She tells me that the bowel issues are the same since prior to chemotherapy, but the nausea and vomiting have made her feel worse. She did work today. A 24-hour dietary recall consisted of one scrambled egg for breakfast, cream of wheat, followed by some popsicles a few hours later, followed by a couple of bites of a casserole and then just hydration. She was found to be hypokalemic last week when starting chemotherapy. PAST MEDICAL HISTORY 1. Hypertension. 2. Hypercholesterolemia. 3. Patient reports history of anxiety, currently on Lexapro. FAMILY HISTORY There is reported family history of colon cancer in her father, who at 54 of colon cancer. SOCIAL HISTORY The patient works as a public health nurse. She is a never-smoker. There is no history of illicit drug abuse or alcohol abuse. CURRENT MEDICATIONS 1. MiraLAX. 2. Dicyclomine. 3. Losartan. 4. Atorvastatin. 5. Lexapro. 6. Hydrochlorothiazide. ALLERGIES No known drug allergies. REVIEW OF SYSTEMS GENERAL: Denies any recent fevers, chills, or night sweats. She does have some mild fatigue, mostly related to her nausea. She has been working and went to work today. HEENT: She denies any visible mouth sores. She believes she may have one canker sore somewhere in the back of her throat or esophagus, because she feels something there but has not physically noticed anything. She denies any odynophagia or dysphagia. RESPIRATORY: She denies any cough, sputum production, or hemoptysis. No pleuritic chest pain. CARDIOVASCULAR: She denies any chest pain. No syncope or presyncope. GI: She continues to fluctuate between diarrhea and constipation. She continues to notice some abdominal bloating and gas. She has also had some increase in her belching. She has had nausea and vomiting with approximately two episodes of vomiting per day since initiating chemotherapy. This preceded chemotherapy, as patient did have nausea and vomiting prior to starting chemotherapy on the day of chemotherapy. She has been able to take her home medications without throwing those up, and has taken in about 1.5L of water/Gatorade per day. She is sensitive to many foods. : No reports of dysuria, hematuria, or genitourinary discharge. She has had some stress urinary incontinence during intense moments of nausea and vomiting. MUSCULOSKELETAL: No new focal areas of pain. ENDOCRINE: She denies any vasomotor symptoms. No heat or cold intolerance. NEURO: She denies any headaches or numbness or tingling. PSYCH: She has anxiety and depression at baseline, currently on Lexapro for her depression. She denies any severe or worsening depression, suicidal or homicidal ideation. EXTREMITIES: She denies any edema. DERM: She denies any rash or skin changes. No bleeding. No bruising. The remainder of a 12-point review of systems was performed today and is otherwise negative. PHYSICAL EXAMINATION VITAL SIGNS: Weight is 76.7 kg, down 1 kg. T 97.9, P 86, R 16, BP 116/63, oxygen saturation 93% on room air. She currently rates her pain scale at "2/10" and rates her fatigue at a level 3. GENERAL: In general, this is a pleasant 63-year-old woman who appears well nourished and is in no acute distress. EYES: Sclerae anicteric. ENT/MOUTH: No mouth sores. No signs of mucositis. NECK: Supple. No lymphadenopathy. No JVD. NEURO: Patient is awake, alert, and oriented x3. PSYCH: Patient's mood and affect are appropriate and within normal limits today. LUNGS: Clear breath sounds to auscultation bilaterally. CARDIOVASCULAR: Regular rate and rhythm. No ectopy. GI: Exam limited, as patient is in a seated position. Bowel sounds are positive x4. No rebound or guarding. DERM: No rash. No widespread bruising. No petechiae or purpura. MUSCULOSKELETAL: No pain to palpation of the bony spinous processes. EXTREMITIES: No edema. No clubbing or cyanosis. LABORATORY CBC today: WBC 5.5, ANC 4.0, hemoglobin 14.3, hematocrit 42.3%, platelets 254,000. CMP today: Sodium down to 131, decreased from 140 last week. Potassium down to 2.6, decreased from 2.9 last week. Serum creatinine within normal limits at 0.90. Glucose normal at 105. Calcium normal at 9.0. Total bilirubin normal at 0.7. AST down to normal at 26, ALT 24, alkaline phosphatase 59, total protein 7.6, albumin 4.6. IMAGING CT chest, abdomen and pelvis with contrast at [facility] on 12/12/2018: (1) Again noted are numerous matted loops of small bowel in the left side of the abdomen, which appear to be adherent to left side of the colon. Although these changes could be inflammatory, malignancy should be excluded. There are infiltrative changes and nodularity seen throughout the omentum. Although this could represent edema, findings are concerning for carcinomatosis. (2) There is enhancement and thickening of the terminal ileum. There is also mild fluid distention of the distal ileal loops. This raises the question of possible inflammatory bowel disease, and clinical correlation needed. There has been a slight increase in the small amount of free pelvic and abdominal fluid. (3) In the left adnexa, there is a 4.1 x 3.8 cm complex structure most likely related to the left ovary. Further evaluation with pelvic ultrasound to exclude an ovarian mass is recommended. (4) A 2 mm subpleural noncalcified nodule, lateral aspect of the left lower lobe, appears unchanged. IMPRESSION AND PLAN This is a pleasant 63-year-old woman with a high-grade appendiceal/colonic adenocarcinoma with carcinomatosis. She has met with Dr. Meade at the [facility]. Plan has been made for her to receive chemotherapy with FOLFOX up front with four cycles, or two months. She will then undergo re-imaging with a CT, and depending on those findings, she will then either continue with another four cycles of FOLFOX and consideration of surgical debulking and HIPEC. She initiated Cycle #1 day 1 last week on 01/16/2019. She has had some difficulty with nausea and vomiting and likely has a component of anticipatory nausea, as she was having nausea and mild emesis the day of chemotherapy, all prior to initiating chemotherapy. She continues to have nausea and vomiting today. She is feeling fatigued from this. She also continues to have bowel changes with alternating between diarrhea and constipation. At [place], she reports approximately two loose stools per day, nothing more than that. She is having some mild increase in belching as well. She was found to be hypokalemic last week, with a potassium level of 2.9, which has decreased down today to 2.6. 1. Hypokalemia: Patient will receive intravenous correction today with potassium chloride 20 mEq intravenously. I have also sent in a prescription for her to begin potassium chloride supplement 20 mEq daily (two tablets of 10 mEq). 2. Dehydration/chemotherapy-induced nausea and vomiting: Patient will receive intravenous fluid hydration today with 1L normal saline along with potassium as noted. For her nausea, she will also receive dexamethasone 8 mg intravenously and Zofran 8 mg intravenously today with her fluids. 3. Home antiemetics: We reviewed these at length today. She is provided with written instructions on how to rotate all of her medications. She has not yet tried lorazepam, but she will try this tonight. Discussed that she may also use this for anticipatory nausea as well. 4. We discussed nutrition today. I reviewed her vitamins, and she may continue to use a multivitamin as well as biotin. 5. Her Lipitor is on hold for now. Her primary care provider is aware. Patient self-discontinued this approximately two weeks ago due to potential side effects that she read about. I believe she is thinking about potential kidney dysfunction or transaminitis from Lipitor, and she may continue to hold this, as this has already been held. 6. Gastroesophageal reflux disease: For her gastroesophageal reflux disease and belching, I have sent in an e-prescription for omeprazole 40 mg daily. Discussed how to take this. Both of her prescriptions were sent to her local pharmacy at [facility]. She will pick these up later today. 7. She will return to the clinic early Wednesday afternoon for repeat labs to reevaluate her electrolyte imbalance. We will plan to replace that day if still low. 8. She is to call us for any questions or concerns in the interim. [facility]
[2019-01-27 13:13] VITALS: BP 99/72
[2019-01-27] MEDS: LIDOCAINE/SOD BICARB 8.4% SYR ID PRN (13:19)
[2019-01-27] MEDS: NS(*) 0.9% 1000 ML BAG 1,000 ML IV PRN (13:20)
[2019-01-27 13:33] LABS: PLATELET COUNT, AUTOMATED 258 K/uL (150-450)
--- NOTE | 2019-01-27 23:07 | ONCOLOGY FOLLOW UP NOTE ---
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 CHIEF COMPLAINT Patient is here for add-on visit after calling with complaints of ongoing nausea, vomiting, and diarrhea x2 days. She is status post Cycle #1 with FOLFOX. 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 Towards the end of 2018, she started having problems with her bowel movements. They have become more and more difficult to pass, and at times, she had significant associated pain. She had initially presented with these symptoms, and it was thought potentially that it was related to her diet. She made some dietary changes in that regard. She eventually underwent a CT scan of the chest, abdomen, and pelvis on December 12, 2018. That scan revealed numerous matted loops of small bowel in the left abdomen as well as infiltrative changes and nodularity of the omentum. There was a complex structure of or near the left adnexa measuring 4.1 x 2.8 cm, as well as a 2 mm subpleural nodule in the left lower lobe. She was referred for colonoscopy, which occurred 12/15/2018. Colonoscopy revealed a mass at the cecum, which was biopsied. Initial pathology evaluation was indicative of invasive colonic adenocarcinoma. Second opinion at [facility] showed a poorly differentiated adenocarcinoma. She then underwent an MRI of the abdomen. 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 This was compared to prior studies, and it was felt to be getting smaller potentially, but at least stable. Kristina Veliz then was seen at the [facility] by Dr. Meade and his team. Pathology was reviewed as well as imaging. Recommendation was made for her to receive chemotherapy with FOLFOX to start. Plan is for her to have two months of FOLFOX, four doses, followed by re-imaging, and depending on response, either continuation with another four doses or two months of FOLFOX. There is also potential plan for her to undergo surgical debulking with HIPEC. She has continued to report the same physical complaints, mostly related to bowels and dietary sensitivities. She has also had some psychosocial stressors and has recently reported that her stress levels have been very high. She continues working as a public health nurse. She will also be adopting two of her grandchildren in the near future. She initiated Cycle #1 on 01/16/19. After her first cycle, she was noted to have some nausea and vomiting. Of note, she also had nausea and vomiting on the day of Cycle #1 which began prior to starting any treatment. She has Compazine, Zofran, and lorazepam tablets at home. We did have to see her after her first cycle for IV fluid hydration. She continues to try to work and is working as a public health nurse. She has had difficulty with bowels, mostly fluctuating between constipation and diarrhea, which predated chemotherapy and surgery. She does report that Compazine tends to make her feel dizzy and that Zofran does not work to alleviate her nausea or vomiting. She is using lorazepam. I saw her earlier this week for follow-up. She required IV hydration. Today she reports feeling extremely well on Wednesday, had a normal bowel movement, and Wednesday and started to have some softer stools, yet still formed. Yesterday, , she began to have worsening nausea with vomiting. Towards the evening yesterday, she found herself having looser stools and vomiting. She is having some generalized weakness as a result. She has also had decreased oral intake as a result. She was unable to take her omeprazole this morning due to her nausea and vomiting. Lastly, she has been found to be hypokalemic since initiating treatment and was low even prior to starting chemotherapy. We have replaced this on a couple of occasions IV in the office and also started her on oral potassium supplementation with 20 mEq daily. She denies any bloody stool. She denies any fevers. She does still have some abdominal pain but no other or new areas of pain. The abdominal cramping sensations preceded chemotherapy. PAST MEDICAL HISTORY 1. Hypertension. 2. Hypercholesterolemia. 3. Patient reports history of anxiety, currently on Lexapro. FAMILY HISTORY There is reported family history of colon cancer in her father, who at 54 of colon cancer. SOCIAL HISTORY The patient works as a public health nurse. She is a never smoker. There is no history of illicit drug abuse or alcohol abuse. CURRENT MEDICATIONS 1. MiraLAX. 2. Dicyclomine. 3. Losartan. 4. Atorvastatin. 5. Lexapro. 6. Hydrochlorothiazide. ALLERGIES No known drug allergies. REVIEW OF SYSTEMS CONSTITUTIONAL: Patient reports some generalized fatigue and weakness secondary to her decreased oral intake, nausea, vomiting, and diarrhea. She denies any recent fevers or chills or night sweats. HEENT: She denies any mouth sores. She denies any odynophagia or dysphagia. RESPIRATORY: She denies any cough, sputum production, or hemoptysis. No pleuritic chest pain. CARDIOVASCULAR: She denies any chest pain. No syncope or presyncope. GASTROINTESTINAL: She continues to fluctuate between diarrhea and constipation. She continues to notice some abdominal bloating and gas as well as abdominal cramps and spasm sensations. She has had some mild increase in her belching, which is stable compared to last week. She did not have any nausea the day of chemotherapy or the day after, but began to have this two days ago. She began having vomiting as well. She then started to have looser stools which became readily apparent yesterday. She tells me she had an episode of urgent explosive diarrhea, but yet this was still somewhat soft and formed. 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 She has had decreased oral intake as a result. GENITOURINARY: She denies any dysuria, hematuria, or genitourinary discharge. She has had some stress urinary incontinence during intense moments of nausea and vomiting. MUSCULOSKELETAL: No new focal areas of pain. ENDOCRINE: She denies any vasomotor symptoms. No heat or cold intolerance. NEUROLOGIC: She denies any headaches or numbness or tingling. PSYCHIATRIC: She has anxiety and depression at baseline, currently on Lexapro for her depression. She denies any severe or worsening depression, suicidal or homicidal ideation. EXTREMITIES: She denies any edema. DERM: She denies any rash or skin changes. No bleeding. No bruising. The remainder of a 12-point review of systems was performed today and is otherwise negative. PHYSICAL EXAMINATION VITAL SIGNS: Weight is 76.7 kg earlier this week. T 97.9 degrees Fahrenheit, P 93, R 18, BP 99/72, oxygen saturation 91% room air. GENERAL: This is a pleasant 63-year-old woman who does appear fatigued and somewhat volume contracted, but is otherwise in no acute distress. EYES: Sclerae anicteric. ENT/MOUTH: No mouth sores. No signs of mucositis. NECK: Supple. No lymphadenopathy. No JVD. NEUROLOGIC: Patient is awake, alert, and oriented x3. PSYCHIATRIC: Patient's mood and affect are appropriate and within normal limits today. LUNGS: Clear breath sounds to auscultation bilaterally. CARDIOVASCULAR: Mildly tachycardic, regular rhythm. No murmurs, gallops, or rubs. GASTROINTESTINAL: Exam is limited as patient is in a seated position. Bowel sounds are positive x4. There is no rebound or guarding. Abdomen is mildly distended, but soft. DERM: No rash. No widespread bruising. No petechiae or purpura. MUSCULOSKELETAL: No pain to palpation of the bony spinous processes. EXTREMITIES: No edema. No clubbing or cyanosis. LABORATORY CBC today: WBC 5.5, ANC 4.5, hemoglobin 15.0, hematocrit 44.0%, platelets 258,000. Red blood cell indices are normal. MPV is low, 6.9. CMP today: Sodium minimally low at 134, potassium still low, but improved today at 3.0, up from 2.6 earlier in this week, serum creatinine up to 1.1, up from 0.9 earlier this week and 0.07 last week. Random glucose up to 143. Total bilirubin normal, 1.0, AST elevated up to 52, previously 26, ALT up to 99, previously 42, alkaline phosphatase normal at 92. Total protein 7.0, albumin normal at 4.1. IMAGING CT chest, abdomen, and pelvis with contrast at [facility] on 12/12/2018: 1. Again noted are numerous matted loops of small bowel in the left side of the abdomen which appear to be adherent to left side of the colon. Although these changes could be inflammatory, malignancy should be excluded. There are infiltrative changes and nodularity seen throughout the omentum. Although this could represent edema, findings are concerning for carcinomatosis. 2. There is enhancement and thickening of the terminal ileum. There is also mild fluid distention of the distal ileal loops. This raises the question of possible inflammatory bowel disease, and clinical correlation needed. There has been a slight increase in the small amount of free pelvic and abdominal fluid. 3. In the left adnexa, there is a 4.1 x 3.8 cm complex structure most likely related to the left ovary. Further evaluation with pelvic ultrasound to exclude an ovarian mass is recommended. 4. A 2 mm subpleural noncalcified nodule, lateral aspect of the left lower lobe, appears unchanged. IMPRESSION AND PLAN This is a pleasant 63-year-old woman with a high-grade appendiceal/colonic adenocarcinoma with carcinomatosis. She has met with Dr. Meade at the [facility]. Plan has been made for her to receive chemotherapy with FOLFOX up front with four cycles, or two months. She will then undergo re-imaging with a CT, and depending on those findings, she will then either continue with another four cycles of FOLFOX and consideration of surgical debulking and hyperthermic intraperitoneal chemotherapy (HIPEC). She started Cycle #1 on 01/16/2019. She has had some difficulty with grade 2 nausea and vomiting, although some of this had a component of anticipatory nausea. She was having some nausea and mild emesis the day of chemotherapy prior to receiving any chemotherapy. She has had some diarrhea lately,with looser stools for the last 24 hours. She has also had hypokalemia, which we have tried to correct in the office intravenously. She is also on oral potassium supplementation. She had a couple of good days after her infusion earlier this week, but for the last 24 hours, she has had worsening diarrhea. She has also had nausea and vomiting for the last two days. She is hypotensive today, likely related to her dehydration and volume contraction. She is afebrile. She is nontoxic appearing. 1. Dehydration/chemotherapy-induced nausea and vomiting: Patient is hypotensive today. She will receive 1 L normal saline intravenously along with Zofran 8 mg intravenously today. She will continue on her potassium supplementation at home. 2. Lipitor: Can remain on hold for now per her primary care physician. 3. Gastroesophageal reflux disease: She will continue on omeprazole 40 mg daily. She had been taking this every morning daily since prescribed last week, though did not take it this morning due to her nausea and vomiting. 4. Hypokalemia: CMP returned after initiating this dictation, though once results were in, we noted that her potassium was still low at 3.0, though this has improved compared to previous. As such, I have ordered another 500 mL of normal saline bolus along with 10 mEq of potassium chloride intravenously today. 5. Nausea/home antiemetics: I have written a prescription/called this in for a Sancuso patch, 3.1 mg per 24 hours, to use for chemotherapy-induced nausea and vomiting. I have given the patient instructions specifically that she is to apply this 24 to 48 hours prior to each chemotherapy cycle and may leave on seven days and then reapply if needed in between cycles for breakthrough nausea. This was called in x4, x1 refill. I did explain to patient that this may not be ready over the weekend or prior to her next cycle next Wednesday as this may likely need a prior authorization. Our office will work on this for her. If this is approved, and patient is able to pick this up, I have instructed her to stop the Zofran as we will try and use Sancuso to replace Zofran as her 5HT3 antiemetic. 6. Abdominal spasm/pain: I have called in a prescription for Bentyl 10 mg one p.o. q.6 hours p.r.n. abdominal spasms, #60, no refills. She did use this with some good efficacy after her surgery, though was instructed to discontinue this. She will need to eat prior to taking this, and she will see if she is able to tolerate this. 7. Patient will return to clinic on Wednesday as scheduled for followup and to initiate Cycle #2, her second total infusion with FOLFOX. We will re-evaluate her at that time. We may need to start planning for proactive/preventative intravenous fluid hydration towards the end of the week with each chemotherapy cycle. MTDD
[2019-01-30 08:38] VITALS: BP 108/73
[2019-01-30] MEDS: NS(*) 0.9% 500 ML BAG 500 ML IV PRN (08:57)
[2019-01-30] MEDS: LIDOCAINE/SOD BICARB 8.4% SYR ID PRN (08:57)
[2019-01-30] MEDS: PALONOSETRON 0.25 MG/5 ML VIAL IVP PRN (11:00)
[2019-01-30] MEDS: DEXAMETHASONE SOD PHOS 10MG/ML IVP PRN (11:00)
[2019-01-30] MEDS: FOSAPREPITANT DIM 150 MG/5 ML 150 MG in NS(*) 0.9% 250 ML BAG 245 ML IVPB PRN (11:38)
[2019-01-30] MEDS: LORazepam 2 MG/ML VIAL IVP PRN (12:11)
[2019-01-30] MEDS: DEXTROSE 5%(*) 100 ML BAG 100 ML IVPB PRN (12:45)
[2019-01-30 15:26] VITALS: BP 123/71
--- NOTE | 2019-01-31 08:37 | ONCOLOGY FOLLOW UP NOTE ---
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 CHIEF COMPLAINT Patient is here for followup and evaluation for Cycle #2 FOLFOX today. 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 Towards the end of 2017, she started having problems with her bowel movements. They have become more and more difficult to pass, and at times, she had significant associated pain. She had initially presented with these symptoms, and it was thought potentially that it was related to her diet. She made some dietary changes in that regard. She eventually underwent a CT scan of the chest, abdomen, and pelvis on December 12, 2018. That scan revealed numerous matted loops of small bowel in the left abdomen as well as infiltrative changes and nodularity of the omentum. There was a complex structure of or near the left adnexa measuring 4.1 x 2.8 cm, as well as a 2 mm subpleural nodule in the left lower lobe. She was referred for colonoscopy, which occurred December 15, 2018. Colonoscopy revealed a mass at the cecum, which was biopsied. Initial pathology evaluation was indicative of invasive colonic adenocarcinoma. Second opinion at [facility] showed a poorly differentiated adenocarcinoma. She then underwent an MRI of the abdomen. 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 This was compared to prior studies, and it was felt to be getting smaller potentially, but at least stable. Kristina Veliz then was seen at the [facility] by Dr. Meade and his team. Pathology was reviewed as well as imaging. Recommendation was made for her to receive chemotherapy with FOLFOX to start. Plan is for her to have two months of FOLFOX, four doses, followed by re-imaging, and depending on response, either continuation with another four doses or two months of FOLFOX. There is also potential plan for her to undergo surgical debulking with HIPEC. She has continued to report the same physical complaints, mostly related to bowels and dietary sensitivities. She has also had some psychosocial stressors and has recently reported that her stress levels have been very high. She continues working as a public health nurse. She will also be adopting two of her grandchildren in the near future. She initiated Cycle #1 on January 16, 2019. After her first cycle, she was noted to have some nausea and vomiting. Of note, she had nausea and vomiting on the day of Cycle #1 which began prior to starting any treatment. She has Compazine, Zofran, and lorazepam tablets at home. We did have to see her after her first cycle for IV fluid hydration. She continues to try to work and is working as a public health nurse. She has had difficulty with bowels, mostly fluctuating between constipation and diarrhea, which predated chemotherapy and surgery. She does report that Compazine tends to make her feel dizzy and that Zofran does not work to alleviate her nausea or vomiting. She is using lorazepam. I saw her earlier this week for follow-up. She required IV hydration. Today she reports feeling extremely well on Wednesday, had a normal bowel movement, and Wednesday and started to have some softer stools, yet still formed. Yesterday, , she began to have worsening nausea with vomiting. Towards the evening yesterday, she found herself having looser stools and vomiting. She is having some generalized weakness as a result. She has also had decreased oral intake as a result. She was unable to take her omeprazole this morning due to her nausea and vomiting. Lastly, she has been found to be hypokalemic since initiating treatment and was low even prior to starting chemotherapy. We have replaced this on a couple of occasions IV in the office and also started her on oral potassium supplementation with 20 mEq daily. She denies any bloody stool. She denies any fevers. She does still have some abdominal pain but no other or new areas of pain. The abdominal cramping sensations preceded chemotherapy. She started Cycle #1 on January 16, 2019. She did have nausea and vomiting after her first cycle but of note also had nausea and vomiting prior to initiating any treatment and was having nausea and vomiting in the infusion room prior to being hooked up to chemotherapy. She has Compazine, Zofran and Lorazepam tablets at home. She has necessitated a couple of days of IV fluid hydration since her first cycle secondary to nausea, vomiting, diarrhea and hypokalemia. Her hypokalemia was evident prior to starting treatment and is likely related to her vomiting and her stool changes. She has had difficulty with bowels, mostly fluctuating between constipation and diarrhea, which predated chemotherapy and surgery but has persisted. Compazine tends to help her but does make her feel dizzy. She did not feel that Zofran was alleviating her nausea or vomiting. She is using Lorazepam now and is also using this for anticipatory nausea. Most recently, her potassium was improved and up to 3.0. At her last visit, I did place her on Bentyl p.r.n. She is also on p.o. KCL 20 mEq daily. She is on omeprazole 40 mg daily. Last week, we did see her for followup after she called and reported excessive stooling and nausea and vomiting. She was given IV hydration and electrolyte replacement. At that time, I sent in a prescription for Sancuso patch and gave patient directions on how to use this. This will not be ready until later today, however. PAST MEDICAL HISTORY 1. Hypertension. 2. Hypercholesterolemia. 3. Patient reports history of anxiety, currently on Lexapro. FAMILY HISTORY There is reported family history of colon cancer in her father, who at 54 of colon cancer. SOCIAL HISTORY The patient works as a public health nurse. She is a never smoker. There is no history of illicit drug abuse or alcohol abuse. CURRENT MEDICATIONS 1. MiraLAX. 2. Dicyclomine. 3. Losartan. 4. Atorvastatin. 5. Lexapro. 6. Hydrochlorothiazide. 7. Omeprazole 40 mg daily. 8. Lorazepam 0.5 mg p.o. every eight hours p.r.n. chemo-induced nausea, vomiting or anxiety. 9. Oral potassium 20 mEq daily. ALLERGIES No known drug allergies. REVIEW OF SYSTEMS CONSTITUTIONAL: Patient reports some fatigue and some abdominal discomfort which is intermittent but otherwise tells me that she has not had any nausea, vomiting or diarrhea in about 36 hours. She denies any recent fevers, chills, infections of night sweats. HEENT: She denies any mouth sores. She denies any odynophagia or dysphagia. RESPIRATORY: She denies any cough, sputum production, or hemoptysis. No pleuritic chest pain. CARDIOVASCULAR: She denies any chest pain. No syncope or presyncope. GASTROINTESTINAL: Patient tells me that she has not had diarrhea since Wednesday evening. She did have a loose stool on Wednesday and Wednesday and did use Imodium x1 tablet each day. She reports continued nausea but has not had any actual vomiting for about two days now. She is using her Lorazepam at home. She has not had any constipation. She continues to notice some abdominal bloating and gas and some abdominal cramps and spasm type sensation. She has been using Bentyl for the last couple of days and reports that Bentyl has been helping these pains. She has had an increase in belching, which is currently stable. She continues on daily omeprazole, although did not take it over the weekend. She reports that she did not eat much on Wednesday but has been pushing oral fluids. She did eat a bit better yesterday. GENITOURINARY: She denies any dysuria, hematuria or genitourinary discharge. She has had some stress urinary incontinence during intense moments of nausea and vomiting. MUSCULOSKELETAL: No new focal areas of pain. ENDOCRINE: She denies any vasomotor symptoms. No heat or cold intolerance. Patient reports that she feels pretty well today. NEUROLOGIC: She denies any headaches or numbness or tingling. PSYCHIATRIC: She has anxiety and depression at baseline, currently on Lexapro for her depression. She denies any severe or worsening depression, suicidal or homicidal ideation. EXTREMITIES: She denies any edema. DERM: She denies any rash or skin changes. No bleeding. No bruising. The remainder of a 12-point review of systems was performed today and is otherwise negative. PHYSICAL EXAMINATION VITAL SIGNS: Weight today is 73 kg, down 2.5 kg compared to January 23, 2019. T 97.6 degrees, P 80, R 18, BP 108/73, oxygen saturation 95% room air. GENERAL: This is a pleasant 63-year-old woman who appears to be in no acute distress. She looks good and seems improved compared to last Wednesday when she was in for IV fluids secondary to volume contraction. EYES: Sclerae anicteric. ENT/MOUTH: No mouth sores. No signs of mucositis. NECK: Supple. No lymphadenopathy. No JVD. NEUROLOGIC: Patient is awake, alert, and oriented x3. PSYCHIATRIC: Patient's mood and affect are appropriate and within normal limits today. LUNGS: Clear breath sounds to auscultation bilaterally. CARDIOVASCULAR: Regular rate and rhythm. No murmurs, gallops or rubs. GASTROINTESTINAL: Exam is limited as patient is in a seated position. Bowel sounds are positive x4. Abdomen is soft, minimally distended and mildly tender at the right upper quadrant. Patient also has some mild tenderness at the epigastrium. DERM: No rash. No widespread bruising. No petechiae or purpura. MUSCULOSKELETAL: No pain to palpation of the bony spinous processes. EXTREMITIES: No edema. No clubbing or cyanosis. LABORATORY CBC today: WBC 2.3, ANC 1.1, hemoglobin 13.4, hematocrit 39.0%, platelets 235,000. CMP today: Sodium minimally low at 135, potassium down to 2.8. Previously, this had improved to 3.0. Serum creatinine 0.70, random glucose normal at 104, calcium normal at 9.0. AST improved down to 30, ALT still minimally elevated but improved today at 59, compared to 99 previously. Alkaline phosphatase normal at 68. Total protein normal at 6.7 with normal albumin of 3.8. IMAGING CT chest, abdomen, and pelvis with contrast at [facility] [place] on December 12, 2018: 1. Again noted are numerous matted loops of small bowel in the left side of the abdomen which appear to be adherent to left side of the colon. Although these changes could be inflammatory, malignancy should be excluded. There are infiltrative changes and nodularity seen throughout the omentum. Although this could represent edema, findings are concerning for carcinomatosis. 2. There is enhancement and thickening of the terminal ileum. There is also mild fluid distention of the distal ileal loops. This raises the question of possible inflammatory bowel disease, and clinical correlation needed. There has been a slight increase in the small amount of free pelvic and abdominal fluid. 3. In the left adnexa, there is a 4.1 x 3.8 cm complex structure most likely related to the left ovary. Further evaluation with pelvic ultrasound to exclude an ovarian mass is recommended. 4. A 2 mm subpleural noncalcified nodule, lateral aspect of the left lower lobe, appears unchanged. IMPRESSION AND PLAN This is a pleasant 63-year-old woman with a high-grade appendiceal/colonic adenocarcinoma with carcinomatosis. She has met with Dr. Meade at the [facility]. Plan is for her to receive chemotherapy with FOLFOX up front with four cycles, or two months. She will then undergo re-imaging with a CT, and depending on those findings, she will then either continue with another four cycles of FOLFOX and consideration of surgical debulking and hyperthermic intraperitoneal chemotherapy (HIPEC). She started Cycle #1 on January 16, 2019. She has completed only one cycle thus far. There is an error in my last note as far as cycles and this is a typo. She did start Cycle #1 on January 16, 2019 and has only received one cycle thus far. She has come in on a couple of occasions since initiating her first cycle secondary to dehydration, volume contraction, secondary to nausea, vomiting and diarrhea. She has had difficulty with grade 2 nausea and vomiting, although there is a component of anticipatory nausea to this. She did have nausea and mild emesis the day of chemotherapy prior to receiving any chemotherapy. She has had some fluctuation in her bowels which preceded chemotherapy and now has been having increased looser stools and diarrhea since initiating chemotherapy. She has also had hypokalemia, which was noted prior to treatment. We have been correcting this in the office and she is also now on oral potassium supplementation. She most recently received IV fluid hydration and electrolyte replacement on Wednesday of last week. Her diarrhea has improved over the weekend and she reports no more than one or two loose stools since Wednesday evening. She reports ongoing nausea but no emesis for almost the last two days. Her abdominal pain persists, which has been evident since consultation. It has improved, however, since we reinitiated her on Bentyl p.r.n. She also has some GERD and increased belching and omeprazole is working for this. She continues to have some difficulty with dietary restrictions as many foods cause worsening abdominal pain. She feels well. She tells me that she felt tired on Wednesday but yesterday was up and about. She has not had any fever. She is due for her second cycle today. 1. Nausea: As noted above, patient is having difficulty with grade 2 nausea and vomiting. As far as chemotherapy, we have now added IV Emend and IV Lorazepam to her pre-meds, which she will receive today and with each subsequent cycle. 2. Sancuso patch: This was called in for her on Wednesday. The pharmacy will not have this in until today, but she is well-versed on how to use this. She will be using Sancuso to replace Zofran at home as her antiemetic. I did explain that although it is recommended that patient apply Sancuso patch on 24 to 48 hours prior to chemotherapy. Since she is having breakthrough nausea and vomiting in between cycles, I am going to have her place this on later today. She may continue to use her other home antiemetics. After this cycle, she will then place Sancuso on every week and especially 24 hours prior to each treatment. I discussed this with the patient, her and her daughter, whom were all with her today chairside. She is to alert us for any worsening nausea or vomiting. 3. Hypokalemia: Likely secondary to her GI disturbances to include vomiting and diarrhea. This had improved last week but today is down to 2.8. As such, I have written orders for patient to receive potassium replacement today with Adela Ciel 20 mEq IV today prior to starting chemotherapy. She is to remain on daily oral potassium. We will consider increasing her from 20 mEq to 30 mEq if she is still hypokalemic later this week. 4. Diarrhea: Discussed how to properly use Imodium. She has only taken one Imodium tablet for a 24 hour period. I have recommended that she take two Imodium tablets with the first loose stool, one Imodium tablet thereafter. If this does not help or improve her symptoms, she will alert us. 5. Abdominal spasm/colon: Patient will continue on Bentyl 10 mg p.o. every six hours p.r.n. She reports that this is helping her quite a bit. 6. Gastroesophageal reflux disease: She will continue on daily omeprazole 40 mg. 7. Neutropenia, grade 1/2: Today's ANC down to 1.1. Patient has not had any neutropenia since starting treatment. She is feeling quite well today, much improved, is afebrile, nontoxic appearing. Patient would like to proceed with treatment today and would like to press on as she is stable. As such, I have written orders for patient to proceed with Cycle #2 with FOLFOX today. Patient will receive GCSF later this week after her pump discontinuation. 8. Patient will return the clinic on Wednesday as scheduled for 5-FU pump discontinuation and repeat labs to include CMP and we will also check magnesium that day. 9. I have written orders for patient to start Neupogen 480 mcg subcutaneous this , 24 hours after her pump discontinuation. She will also receive a dose on Wednesday. 10. Patient will return to the clinic next Wednesday for followup with me and repeat labs. If she is still neutropenic at that time, we will plan to administer subsequent doses of Neupogen. 11. Discussed the treatment plan with patient at length today. Also, discussed this at length with the patient and her and daughter. Discussed risks and benefits with GCSF and patient wishes to proceed with treatment. MTDD
[2019-02-01] MEDS: HEPARIN FLSH (PORT) 500 UN/5ML IVP PRN (14:10)
[2019-02-01 14:20] VITALS: BP 129/83
[2019-02-02 08:44] VITALS: BP 103/61
[2019-02-03 09:11] VITALS: BP 98/76
[2019-02-06 09:07] VITALS: BP 121/76
[2019-02-06 09:38] LABS: PLATELET COUNT, AUTOMATED 202 K/uL (150-450)
[2019-02-06] MEDS: DEXAMETHASONE SOD PHOS 10MG/ML IVP PRN (11:41)
[2019-02-06 13:16] VITALS: BP 124/75
[2019-02-06] MEDS: HEPARIN FLSH (PORT) 500 UN/5ML IVP PRN (13:19)
[2019-02-06] MEDS: LIDOCAINE/SOD BICARB 8.4% SYR ID PRN (13:19)
[2019-02-07 09:25] VITALS: BP 133/79
[2019-02-07 09:41] LABS: PLATELET COUNT, AUTOMATED 187 K/uL (150-450)
--- NOTE | 2019-02-07 11:43 | ONCOLOGY FOLLOW UP NOTE ---
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 CHIEF COMPLAINT Patient is here for followup and repeat labs after receiving Cycle #2 with FOLFOX last week. She has received two doses of GCSF since then. She is also here for possible third dose. 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 Towards the end of 2018, she started having problems with her bowel movements. They have become more and more difficult to pass, and at times, she had significant associated pain. She had initially presented with these symptoms, and it was thought potentially that it was related to her diet. She made some dietary changes in that regard. She eventually underwent a CT scan of the chest, abdomen, and pelvis on December 12, 2018. That scan revealed numerous matted loops of small bowel in the left abdomen as well as infiltrative changes and nodularity of the omentum. There was a complex structure of or near the left adnexa measuring 4.1 x 2.8 cm, as well as a 2 mm subpleural nodule in the left lower lobe. She was referred for colonoscopy, which occurred December 15, 2018. Colonoscopy revealed a mass at the cecum, which was biopsied. Initial pathology evaluation was indicative of invasive colonic adenocarcinoma. Second opinion at [facility] showed a poorly differentiated adenocarcinoma. She then underwent an MRI of the abdomen. 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 This was compared to prior studies, and it was felt to be getting smaller potentially, but at least stable. Kristina Veliz then was seen at the [facility] by Dr. Meade and his team. Pathology was reviewed as well as imaging. Recommendation was made for her to receive chemotherapy with FOLFOX to start. Plan is for her to have two months of FOLFOX, four doses, followed by re-imaging, and depending on response, either continuation with another four doses or two months of FOLFOX. There is also potential plan for her to undergo surgical debulking with HIPEC. She has continued to report the same physical complaints, mostly related to bowels and dietary sensitivities. She has also had some psychosocial stressors and reported that her stress levels have been very high. She will also be adopting two of her grandchildren in the near future. She has a hearing scheduled for next Wednesday and is extremely anxious and fearful about this. She started Cycle #1 on January 16, 2019. She did have some nausea and vomiting prior to Cycle #1, prior to receiving any treatment. She had nausea and vomiting after first cycle with breakthrough nausea, vomiting as well as diarrhea. She has required IV fluid hydration in our office on several occasions. She has also been hypokalemic and has required electrolyte replacement as well. She continues on oral potassium 20 mEq daily. She has antiemetics at home which include Compazine, Zofran and Lorazepam. Zofran worked minimally well, and Compazine reportedly made her too dizzy. She is using Lorazepam more often than the others. We did place her on a Sancuso patch last week, which she started with Cycle #2. This apparently worked quite well for most of last week and she did not have any further nausea, vomiting or diarrhea up until a couple of days ago. She has had some looser stools but tells me that these are somewhat formed. She is using Imodium two tablets at the onset of each loose stool and on average is taking a couple of Imodium per day. She has had generalized weakness throughout treatment, likely in large part due to her volume contraction secondary to dehydration, nausea, vomiting and diarrhea. She is on omeprazole, although occasionally cannot take this in the morning due to nausea. She has not had any bloody stools. She continues to have some abdominal pain but no new areas of pain. She tells me that her abdominal pain and cramping sensations all preceded chemotherapy and is related to her "typical cancer pain". She is using Bentyl p.r.n. for this, which does help. Her antiemetic regimen here in clinic has been altered due to her ongoing nausea. Emend and Lorazepam were added as antiemetic pre-meds. She has significant anticipatory nausea. She also reports that she has significant anxiety and a history of depression. She reports that she is mostly eating liquids and soft foods and has not really had any solid foods for several days. Patient tells me that she believes her anxiety is contributing to her difficulty with eating. PAST MEDICAL HISTORY 1. Hypertension. 2. Hypercholesterolemia. 3. Patient reports history of anxiety, currently on Lexapro. FAMILY HISTORY There is reported family history of colon cancer in her father, who at 54 of colon cancer. SOCIAL HISTORY The patient works as a public health nurse. She is a never smoker. There is no history of illicit drug abuse or alcohol abuse. CURRENT MEDICATIONS 1. MiraLAX. 2. Dicyclomine. 3. Losartan. 4. Atorvastatin. 5. Lexapro. 6. Hydrochlorothiazide. 7. Omeprazole 40 mg daily. 8. Lorazepam 0.5 mg p.o. every eight hours p.r.n. chemo-induced nausea, vomiting or anxiety. 9. Oral potassium 20 mEq daily. ALLERGIES No known drug allergies. REVIEW OF SYSTEMS CONSTITUTIONAL: Patient reports some fatigue. She denies any fevers, chills or night sweats. She had a good week up until the weekend, when nausea, vomiting and looser stools started happening two days ago. HEENT: She denies any mouth sores. She denies any odynophagia or dysphagia. RESPIRATORY: She denies any cough, sputum production, or hemoptysis. No pleuritic chest pain. CARDIOVASCULAR: She denies any chest pain. No syncope or presyncope. GASTROINTESTINAL: Patient continues to have some abdominal cramping and bloating spasm pains. This is managed well with Bentyl p.r.n. She did not have any nausea, vomiting or diarrhea for almost five days last week. This then all started again over the weekend. She reports several loose stools a day, no more than three or four, though states these are somewhat formed. She has had significant nausea, however, for the last couple of days. She's had vomiting as well as dry heaves. She has some anorexia, largely related to dysgeusia as well as food sensitivity. She reports that many foods cause nausea or gas. Her GERD is largely controlled with omeprazole, although she occasionally does not take this due to nausea. She has been trying to drink oral fluids. She doesn't think she's taken in good amounts in the last day or so. She is hardly eating any solid foods and tells me that she is mostly having liquids and pureed foods in the form of smoothies or soups. She admits that she's fearful about eating solids secondary to possible nausea, vomiting or diarrhea. GENITOURINARY: She denies any dysuria, hematuria or genitourinary discharge. She has had some stress urinary incontinence during intense moments of nausea and vomiting. MUSCULOSKELETAL: No new focal areas of pain. ENDOCRINE: She denies any vasomotor symptoms. No heat or cold intolerance. She has some generalized weakness and fatigue. NEUROLOGIC: She denies any headaches or numbness or tingling. PSYCHIATRIC: Patient has significant anxiety at baseline. She also has a history of depression at baseline. She is currently on Lexapro for her depression. She denies any worsening of her depression, suicidal or homicidal ideation. She is extremely worried about an upcoming hearing next week as she is trying to adopt her two grandchildren. She becomes extremely tearful when discussing this. She does report good support at home with her and daughter. DERM: She denies any rash or skin changes. No bleeding. No bruising. The remainder of a 12-point review of systems was performed today and is otherwise negative. PHYSICAL EXAMINATION VITAL SIGNS: Weight today not taken. Most recently, weight was 73 kg. Temperature 97.1 degrees Fahrenheit, P 75, R 18, BP 124/75. Oxygen saturation 98% on room air. GENERAL: This is a pleasant 63-year-old woman who appears fatigued and possibly somewhat volume contracted but is in no acute distress. EYES: Sclerae anicteric. ENT/MOUTH: No mouth sores. No signs of mucositis. NECK: Supple. No lymphadenopathy. No JVD. NEUROLOGIC: Patient is awake, alert, and oriented x3. PSYCHIATRIC: Patient's mood and affect are appropriate today. As noted, she is tearful when discussing upcoming hearing next week where she is trying to adopt her grandchildren. LUNGS: Clear breath sounds to auscultation bilaterally. No wheezes, rales or rhonchi. Respiratory effort is normal. CARDIOVASCULAR: Regular rate and rhythm. No murmurs, gallops or rubs. GASTROINTESTINAL: Exam is limited as patient is in a seated position. Bowel sounds are positive x4. Abdomen is soft, minimally distended and mildly tender at the right upper quadrant. Patient also has some mild tenderness at the epigastrium. DERM: No rash. No widespread bruising. No petechiae or purpura. MUSCULOSKELETAL: No pain to palpation of the bony spinous processes. EXTREMITIES: No edema. No clubbing or cyanosis. LABORATORY CBC today: WBC 2.7, ANC 1.8, hemoglobin 14.7, hematocrit 44.1%, platelets 202,000. CMP today: Sodium minimally low at 133, potassium improved at 3.0, although still low, serum creatinine 0.80. Remainder of CMP is unremarkable. Calcium normal at 8.9. Total bilirubin 0.8, normal, AST 27, normal, ALT down to 46, normal, alkaline phosphatase 79, total protein normal at 7.1, albumin normal at 4.2. IMAGING CT chest, abdomen, and pelvis with contrast at [facility] on December 12, 2018: 1. Again noted are numerous matted loops of small bowel in the left side of the abdomen which appear to be adherent to left side of the colon. Although these changes could be inflammatory, malignancy should be excluded. There are infiltrative changes and nodularity seen throughout the omentum. Although this could represent edema, findings are concerning for carcinomatosis. 2. There is enhancement and thickening of the terminal ileum. There is also mild fluid distention of the distal ileal loops. This raises the question of possible inflammatory bowel disease, and clinical correlation needed. There has been a slight increase in the small amount of free pelvic and abdominal fluid. 3. In the left adnexa, there is a 4.1 x 3.8 cm complex structure most likely related to the left ovary. Further evaluation with pelvic ultrasound to exclude an ovarian mass is recommended. 4. A 2 mm subpleural noncalcified nodule, lateral aspect of the left lower lobe, appears unchanged. IMPRESSION AND PLAN This is a pleasant 63-year-old woman with a high-grade appendiceal/colonic adenocarcinoma with carcinomatosis. She has met with Dr. Maede at the [facility]. Plan is for her to receive chemotherapy with FOLFOX up front with four cycles, or two months. She will then undergo re-imaging with a CT, and depending on those findings, she will then either continue with another four cycles of FOLFOX and consideration of surgical debulking and hyperthermic intraperitoneal chemotherapy (HIPEC). She started Cycle #1 on January 16, 2019. She received her second cycle last week. She has required IV fluid hydration and electrolyte replacement since initiating treatment secondary to dehydration, volume contraction, all related to nausea, vomiting and diarrhea. She has had difficulty with grade 2 nausea and vomiting, and there's a component of anticipatory nausea to this. She has also had grade 1-2 fatigue. She's had grade 2 diarrhea but is now utilizing Imodium more often. She's had some GERD type symptoms, managed well with daily omeprazole. She has had some abdominal spasms and pain, which she presented with at diagnosis, which are being well managed with Bentyl p.r.n. She is also on oral potassium replacement for her hypokalemia. We did alter her antiemetic regimen on days of chemo and added an NK1 along with Lorazepam, on top of other standard pre-meds. Last week we started her on a Sancuso patch, which she initiated with Cycle #2 and we were hopeful that this was helping quite a bit as she had a very good week last week. Unfortunately, she began to have some nausea, vomiting and diarrhea just a couple of days ago. She has also had decreased appetite, somewhat related to taste and GI sensitivities, but also partly related to anxiety. 1. Nausea, diarrhea, volume contraction: Patient will receive IV fluids 1L NS today as well as dexamethasone 10 mg IV for nausea and will also receive potassium replacement today with 10 mEq IV. 2. She will remain on Sancuso patch even on her off weeks to assist with her significant breakthrough nausea. She is due to replace her patch today. 3. Neutropenia: Patient received two doses of GCSF 480 mcg last week, on and Wednesday. She is still neutropenic today with ANC at 1.8. She will proceed with a third dose of Neupogen 480 mcg subcutaneous today, third total dose. 4. I will have the patient return to clinic tomorrow for repeat CBC. Plan is for patient to continue to receive Neupogen if ANC is 1500 or less tomorrow. 5. Optimally, I would like for patient to have an ANC greater than 1500 for at least two consecutive days prior to discontinuing Neupogen. 6. We again discussed common side effects related to GCSF. She verbalized understanding. 7. We discussed her diet, nutrition and overall fear of eating. She did see a commercial loan processor in [place] but I do think it would be appropriate for patient to see a dietitian here locally. She is agreeable. We will place referral and hopefully patient will see commercial loan processor next week with her next cycle of chemotherapy. 8. We will continue to closely monitor. 9. Patient will return to the clinic next Wednesday for IV fluid hydration. She is going to move chemotherapy next week to Wednesday secondary to court hearing for potential adoption of grandchildren. We will plan to preventively hydrate her next Wednesday due to her significant breakthrough nausea, vomiting and diarrhea. MTDD
[2019-02-08 09:17] VITALS: BP 111/74
[2019-02-08 09:36] LABS: PLATELET COUNT, AUTOMATED 170 K/uL (150-450)
[2019-02-08] MEDS: LIDOCAINE/SOD BICARB 8.4% SYR ID PRN (11:06)
[2019-02-08] MEDS: HEPARIN FLSH (PORT) 500 UN/5ML IVP PRN (12:14)
--- NOTE | 2019-02-08 17:22 | ONCOLOGY FOLLOW UP NOTE ---
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 CHIEF COMPLAINT Patient is here for followup and repeat labs after receiving Cycle #2 with FOLFOX last week. She has received two doses of G-CSF since then. She is also here for possible third dose. 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 Towards the end of 2018, she started having problems with her bowel movements. They have become more and more difficult to pass, and at times, she had significant associated pain. She had initially presented with these symptoms, and it was thought potentially that it was related to her diet. She made some dietary changes in that regard. She eventually underwent a CT scan of the chest, abdomen, and pelvis on December 12, 2018. That scan revealed numerous matted loops of small bowel in the left abdomen as well as infiltrative changes and nodularity of the omentum. There was a complex structure of or near the left adnexa measuring 4.1 x 2.8 cm, as well as a 2 mm subpleural nodule in the left lower lobe. She was referred for colonoscopy, which occurred December 15, 2018. Colonoscopy revealed a mass at the cecum, which was biopsied. Initial pathology evaluation was indicative of invasive colonic adenocarcinoma. Second opinion at [facility] showed a poorly differentiated adenocarcinoma. She then underwent an MRI of the abdomen. 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 This was compared to prior studies, and it was felt to be getting smaller potentially, but at least stable. Kristina Veliz then was seen at the [facility] by Dr. Meade and his team. Pathology was reviewed as well as imaging. Recommendation was made for her to receive chemotherapy with FOLFOX to start. Plan is for her to have two months of FOLFOX, four doses, followed by re-imaging, and depending on response, either continuation with another four doses or two months of FOLFOX. There is also potential plan for her to undergo surgical debulking with HIPEC. She has continued to report the same physical complaints, mostly related to bowels and dietary sensitivities. She has also had some psychosocial stressors and reported that her stress levels have been very high. She will also be adopting two of her grandchildren in the near future. She has a hearing scheduled for next Wednesday and is extremely anxious and fearful about this. She started Cycle #1 on January 16, 2019. She did have some nausea and vomiting prior to Cycle #1, prior to receiving any treatment. She had nausea and vomiting after first cycle with breakthrough nausea, vomiting, as well as diarrhea. She has required IV fluid hydration in our office on several occasions. She has also been hypokalemic and has required electrolyte replacement as well. She continues on oral potassium 20 mEq daily. She has antiemetics at home which include Compazine, Zofran and lorazepam. Zofran worked minimally well, and Compazine reportedly made her too dizzy. She is using lorazepam more often than the others. We placed her on a Sancuso patch, which she began with Cycle #2. This worked well for approximately five days, and then she began to notice nausea, vomiting, and diarrhea on the weekend. She was seen on Wednesday for followup and required IV fluid hydration as well as electrolyte replacement with IV potassium. She does report some looser stools, but reports that these are somewhat formed. She uses Imodium approximately two tablets at the onset of each loose stool and reports that on average, she is taking two tablets of Imodium daily. Today, her diarrhea is under control, but her biggest issues are nausea, vomiting, and subsequent fatigue. She continues to note generalized weakness. She does have some abdominal pain/spasms and cramping sensations which preceded chemotherapy. She reports that this is related to her "typical cancer pain." She has been using Bentyl p.r.n. for this, which does help. Her antiemetic regimen in clinic has been altered secondary to her ongoing nausea. Emend and lorazepam IV were added as antiemetic premeds. She has had significant anticipatory nausea. She also reports a significant history of anxiety and history of depression and is on Lexapro for her depression. She also incidentally tells me today that she has been in counseling/psychotherapy for her depression in the past. She has been having mostly liquids in the last couple days and some soft foods, such as applesauce and string cheese. She has not really had any solid foods. She started supplementing with Boost shakes on Wednesday, though reports that these were only able to be held down for a few hours prior to emesis. She does report that her anxiety is a large component to her nausea and vomiting and her difficulty with eating. She is extremely anxious about an upcoming court date next week. Lastly, patient did meet with our social work therapist, Quin, today. She has required G-CSF with Neupogen 480 mcg since last week after her 5-FU pump disconnect. She has received four doses thus far. She has not had any fevers or infections. PAST MEDICAL HISTORY 1. Hypertension. 2. Hypercholesterolemia. 3. Patient reports history of anxiety, currently on Lexapro. FAMILY HISTORY There is reported family history of colon cancer in her father, who at 54 of colon cancer. SOCIAL HISTORY The patient works as a public health nurse. She is a never smoker. There is no history of illicit drug abuse or alcohol abuse. CURRENT MEDICATIONS 1. MiraLAX. 2. Dicyclomine. 3. Losartan. 4. Atorvastatin. 5. Lexapro. 6. Hydrochlorothiazide. 7. Omeprazole 40 mg daily. 8. Lorazepam 0.5 mg p.o. every eight hours p.r.n. chemo-induced nausea, vomiting, or anxiety. 9. Oral potassium 20 mEq daily. ALLERGIES No known drug allergies. REVIEW OF SYSTEMS CONSTITUTIONAL: Patient reports ongoing nausea and vomiting. She reports ongoing difficulty with anorexia largely related to nausea and vomiting after eating. She denies any fevers, chills, or night sweats. She does have some fatigue associated with her nausea. She continues to have some looser stools, but tells me that this is actually under control with Imodium daily. HEENT: Patient reports that she may have a mouth sore in the back of her throat or esophagus, but this is only minimally noticeable. No other mouth sores. She denies any odynophagia or dysphagia. RESPIRATORY: She denies any cough, sputum production, or hemoptysis. No pleuritic chest pain. CARDIOVASCULAR: She denies any chest pain. No syncope or presyncope. GASTROINTESTINAL: Patient continues to have some abdominal cramping and bloating spasm pains. This is managed well with Bentyl p.r.n. She is now on a Sancuso patch which began with Cycle #2, given last week on 01/30/19. Sancuso did work well for about five days along with her lorazepam, though she did begin to have nausea and vomiting a couple of days ago. She is not using Compazine at home as this makes her dizzy. She is using lorazepam four times per day every day. She reports dry heaves, nausea, and vomiting. She has anorexia, largely related to dysgeusia and food sensitivities and anxiety. She reports that many foods cause nausea or gas. Her GERD is largely controlled with omeprazole, though she does not take this in the mornings if she is nauseous. She is trying to drink more fluids. She reports that she is still hardly eating any solid foods and is mostly have liquids and applesauce and occasionally string cheese. She started supplementing with Boost shakes a couple of days ago. She admits that she is extremely fearful about eating solids or anything really secondary to possible nausea, vomiting, or diarrhea. When discussing her nausea and vomiting, she does end up discussing how anxious she is about an upcoming court hearing. GENITOURINARY: She denies any dysuria, hematuria, or genitourinary discharge. She has had some stress urinary incontinence during intense moments of nausea and vomiting. MUSCULOSKELETAL: No new focal areas of pain. ENDOCRINE: She denies any vasomotor symptoms. No heat or cold intolerance. She has generalized weakness and fatigue. NEUROLOGIC: She denies any headaches or numbness or tingling. She has had occasional pharyngeal and peripheral dysesthesias, most noticeable after receiving oxaliplatin. This then dissipates. She reports occasional feelings of numbness in her fingertips, but this has been extremely transient. PSYCHIATRIC: Patient has significant anxiety at baseline. She also has a history of depression at baseline. She is currently on Lexapro for her depression. She tells me that she has been in counseling and has undergone psychotherapy in the past for her severe anxiety and depression. She denies any worsening of her depression, denies any suicidal or homicidal ideation. She is extremely worried about an upcoming hearing next week as she is trying to adopt her two grandchildren. She becomes extremely tearful throughout her visit when discussing this. She does discuss this quite often. She reports good support at home with her and daughter. Today, she tells me she had feelings of guilt as she is not able to care for her grandchildren and even help them with their homework as she has been feeling ill. DERM: She denies any rash or skin changes. No bleeding. No bruising. The remainder of a 12-point review of systems was performed today and is otherwise negative. PHYSICAL EXAMINATION VITAL SIGNS: No weight today. Most recent weight 73 kg, which was down approximately 3 kg from before. Temperature 97.3 degrees Fahrenheit, pulse 81, respirations 16, BP 111/74, oxygen saturation 95% room air. GENERAL: This is a pleasant 63-year-old woman who appears anxious, fatigued, and somewhat volume contracted, but is in no acute distress. HEAD: Normocephalic, atraumatic. EYES: Sclerae anicteric. ENT/MOUTH: No visible mouth sores. No signs of mucositis. NECK: Supple. No lymphadenopathy. No JVD. NEUROLOGIC: Patient is awake, alert, and oriented x3. PSYCHIATRIC: Patient's mood and affect are appropriate today. As noted, she is tearful when discussing upcoming hearing next week where she is trying to adopt her grandchildren. She is extremely anxious. LUNGS: Clear breath sounds to auscultation bilaterally. No wheezes, rales, or rhonchi. Respiratory effort is normal. CARDIOVASCULAR: Regular rate and rhythm. No murmurs, gallops, or rubs. GASTROINTESTINAL: Limited as patient is in a seated position. Bowel sounds are positive x4. Abdomen is soft, minimally distended, and mildly tender at the right upper quadrant. Patient also has some mild tenderness at the epigastrium. DERM: No rash. No widespread bruising. No petechiae or purpura. MUSCULOSKELETAL: No pain to palpation of the bony spinous processes. EXTREMITIES: No edema. No clubbing or cyanosis. LABORATORY CBC today: WBC 1.9. ANC 0.133, down from 1.2 yesterday. Hemoglobin 14.3, hematocrit 42.6%, platelets 170,000. CMP from 02/06/2019: Sodium minimally low, but improved to 133, potassium minimally low, but improved to 3.0, serum creatinine 0.80. LFTs all within normal limits to include normal AST at 27, ALT at 46, alkaline phosphatase 79, total bilirubin 0.8. Magnesium on 01/27/19: Normal at 1.8. IMAGING CT chest, abdomen, and pelvis with contrast at [facility] on December 12, 2018: 1. Again noted are numerous matted loops of small bowel in the left side of the abdomen which appear to be adherent to left side of the colon. Although these changes could be inflammatory, malignancy should be excluded. There are infiltrative changes and nodularity seen throughout the omentum. Although this could represent edema, findings are concerning for carcinomatosis. 2. There is enhancement and thickening of the terminal ileum. There is also mild fluid distention of the distal ileal loops. This raises the question of possible inflammatory bowel disease, and clinical correlation needed. There has been a slight increase in the small amount of free pelvic and abdominal fluid. 3. In the left adnexa, there is a 4.1 x 3.8 cm complex structure most likely related to the left ovary. Further evaluation with pelvic ultrasound to exclude an ovarian mass is recommended. 4. A 2 mm subpleural noncalcified nodule lateral aspect of the left lower lobe appears unchanged. IMPRESSION AND PLAN This is a pleasant 63-year-old woman with a high-grade appendiceal/colonic adenocarcinoma with carcinomatosis. She has met with Dr. Meade at the [facility]. Plan is for her to receive chemotherapy with FOLFOX up front with four cycles, or two months. She will then undergo re-imaging with a CT, and depending on those findings, she will then either continue with another four cycles of FOLFOX and consideration of surgical debulking and hyperthermic intraperitoneal chemotherapy (HIPEC). She started Cycle #1 on January 16, 2019. She received her second cycle last week. She has required intravenous fluid hydration and electrolyte replacement since initiating treatment secondary to dehydration, volume contraction, all related to nausea, vomiting, and diarrhea. She has had difficulty with grade 2 nausea and vomiting, and there is a component of anticipatory nausea to this. She has also had grade 1 to 2 fatigue. She has had grade 2 diarrhea, but is now utilizing Imodium more often. She has had some gastroesophageal reflux disease-type symptoms, managed well with daily omeprazole. She has had some abdominal spasms and pain, which she presented with at diagnosis, which are being well managed with Bentyl p.r.n. She is also on oral potassium replacement for her hypokalemia. Her antiemetic regimen here in clinic has been altered due to her persistent and breakthrough nausea and vomiting, to include a neurokinin-1 along with lorazepam intravenously on top of the standard premeds. We also placed her on a Sancuso patch last week, which she began with Cycle #2. I am hopeful that this will continue to help as this seemed to help her for about five days last week until she began to have breakthrough nausea and vomiting again a couple of days ago. She has had some anorexia, multifactorial, related to gastrointestinal sensitivities, dysgeusia, as well as anxiety. She has necessitated G-CSF support after Cycle #2 as her ANC was minimally low at start of Cycle #2, but was feeling well, vital signs were great, and we opted to proceed with treatment. She received Neupogen 480 mcg for the last four days. Last dose was given yesterday. She has not had any fevers or infection-type symptoms. Unfortunately, today, she is still reporting some nausea and vomiting and is not really having any solid foods and is having mostly liquids with some applesauce and pudding and is trying to supplement with protein shakes. 1. Neutropenia, ongoing and perhaps today worse compared to yesterday with ANC down to 0.13. ANC yesterday was up to 1.2. Patient seems to be having a delayed response to G-CSF. She has not had any fevers or infections. She is a week out from Cycle #2 and is due for her next treatment next week. Optimally, I would like for her ANC to be above 1500 for at least two consecutive days. She is a week out from treatment. As such, she will receive Neupogen 480 mcg today, her fifth total dose, and after that, we will discontinue this. Her vital signs are stable, and she is nontoxic-appearing. We reviewed neutropenic precautions at length. She is aware that she needs to notify us for any sign of infection or fever, with temperature greater than 100.5. We hope that her neutrophil count will be improved next week in that she is simply having a delayed response. 2. Prophylaxis: Discussed prophylactic antibiotics with patient. I do think that she is having a delayed response, and she has not had any fevers. I am concerned about gastrointestinal distress with antibiotics given her current symptomatology. As such, I am going to hold off on prophylactic antibiotics, but again, patient is well versed on when to call our office. 3. Nausea, diarrhea, dehydration: Patient will receive 1 L of normal saline intravenously today. Her nausea is currently improved as she medicated with lorazepam prior to coming in today. She will continue her other home antiemetics and will continue with Sancuso patch. We will need to reevaluate this next week. Due to a large psychological factor with her preexisting anxiety and depression and her severe anticipatory nausea, we may need additional medications, perhaps consider other antidepressants/ antipsychotics such as Zyprexa. 4. Counseling: Discussed potentially referral to counselor due to her psychosocial stressors. Patient tells me she is agreeable to this, but does have a couple of names of counselors that she can call at home as she has been in therapy in the past. She is going to try this and call those counselors. She will notify me if she needs referral or anything else in regards to that issue. 5. Patient will likely require intravenous fluid rehydration at the end of this week, likely on Wednesday. We will tentatively schedule her for Wednesday, and hopefully, she will be doing better and will not need this, but if she does, she may certainly come in for intravenous fluid hydration. 6. Patient is going to return to clinic next Wednesday for intravenous fluid hydration prior to her court appearance. She will then return to clinic next Wednesday for Cycle #3, her third total dose with FOLFOX. 7. Dose reduction: Due to her symptomatology, to include nausea, vomiting, as well as her neutropenia, plan is to dose reduce all cytotoxic agents next week starting with Cycle #3 and going forward with all subsequent cycles. We will plan to dose reduce oxaliplatin and 5-FU by 15%. 8. I discussed this plan with Dr. Harris at length today by phone, and he is in agreement with the above treatment plan. MTDD
--- NOTE | 2019-02-09 11:15 | NUR ---
SW met with pt and yesterday in regard to the anxiety she has been feeling. The pt states she recognizes that at this time she is under quite a bit of stress. She continues to state that her stress is not mainly about the cancer (and she recognizes, that is not common), but mostly about an adoption hearing she has on Wednesday regarding the adoption of her grandchild, Dolly. She says she and her are very confident they will be able to "win" the adoption, but the process leading up to the hearing has been very challenging, mentally and emotionally. She feels that once the adoption is finalized, a weight will be lifted and she will have the opportunity to refocus her thoughts toward taking good care of herself during her treatment. 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 The pt states she has been on Lexapro for quite a while (at least 5 or 6 years) and she finds it to be very helpful in managing her depression and anxiety.
[2019-02-10] MEDS: NS(*) 0.9% 1000 ML BAG 1,000 ML IV PRN (09:38)
[2019-02-10] MEDS: LIDOCAINE/SOD BICARB 8.4% SYR ID PRN (09:38)
[2019-02-10] MEDS: HEPARIN FLSH (PORT) 500 UN/5ML IVP PRN (09:38)
[2019-02-10 09:50] VITALS: BP 96/51
[2019-02-13 09:10] VITALS: BP 139/62
[2019-02-13 09:21] VITALS: BP 100/64
[2019-02-13] MEDS: LIDOCAINE/SOD BICARB 8.4% SYR ID PRN (09:31)
[2019-02-13] MEDS: NS(*) 0.9% 1000 ML BAG 1,000 ML IV PRN (09:31)
[2019-02-13] MEDS: HEPARIN FLSH (PORT) 500 UN/5ML IVP PRN (09:42)
[2019-02-13 10:32] VITALS: BP 109/71
[2019-02-14 09:15] VITALS: BP 123/74
[2019-02-14] MEDS: LIDOCAINE/SOD BICARB 8.4% SYR ID PRN (09:28)
[2019-02-14] MEDS: NS(*) 0.9% 500 ML BAG 500 ML IV PRN (09:28)
[2019-02-14] MEDS: DEXTROSE 5%(*) 100 ML BAG 100 ML IVPB PRN (09:29)
[2019-02-14] MEDS: DEXAMETHASONE SOD PHOS 10MG/ML IVP PRN (11:11)
[2019-02-14] MEDS: PALONOSETRON 0.25 MG/5 ML VIAL IVP PRN (11:12)
[2019-02-14] MEDS: FOSAPREPITANT DIM 150 MG/5 ML 150 MG in NS(*) 0.9% 250 ML BAG 245 ML IVPB PRN (11:26)
[2019-02-14] MEDS: LORazepam 2 MG/ML VIAL IVP PRN (11:27)
[2019-02-14 14:54] VITALS: BP 151/93
--- NOTE | 2019-02-14 20:59 | ONCOLOGY FOLLOW UP NOTE ---
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 CHIEF COMPLAINT Patient is here today for followup and Cycle #3 with FOLFOX. Today, she will start a 15% dose reduction in all cytotoxic drugs (oxaliplatin and 5-FU). She is status post five total doses of G-CSF. She is accompanied in the office by her daughter. 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 Towards the end of 2018, she started having problems with her bowel movements. They have become more and more difficult to pass, and at times, she had significant associated pain. She had initially presented with these symptoms, and it was thought potentially that it was related to her diet. She made some dietary changes in that regard. She eventually underwent a CT scan of the chest, abdomen, and pelvis on December 12, 2018. That scan revealed numerous matted loops of small bowel in the left abdomen as well as infiltrative changes and nodularity of the omentum. There was a complex structure of or near the left adnexa measuring 4.1 x 2.8 cm, as well as a 2 mm subpleural nodule in the left lower lobe. She was referred for colonoscopy, which occurred December 15, 2018. Colonoscopy revealed a mass at the cecum, which was biopsied. Initial pathology evaluation was indicative of invasive colonic adenocarcinoma. Second opinion at [facility] showed a poorly differentiated adenocarcinoma. She then underwent an MRI of the abdomen. 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 This was compared to prior studies, and it was felt to be getting smaller potentially, but at least stable. Kristina Veliz then was seen at the [facility] by Dr. Meade and his team. Pathology was reviewed as well as imaging. Recommendation was made for her to receive chemotherapy with FOLFOX to start. Plan is for her to have two months of FOLFOX, four doses, followed by re-imaging, and depending on response, either continuation with another four doses or two months of FOLFOX. There is also potential plan for her to undergo surgical debulking with HIPEC. She started Cycle #3 on 01/16/19. She has had some nausea and vomiting throughout treatment which began prior to receiving any treatment. She has also had diarrhea. She has required IV fluid hydration in our office several times, usually at least once a week, if not two times per week. She has been hypokalemic and has also required electrolyte replacement. She remains on oral potassium 20 mEq daily. She is using Bentyl for abdominal pain and abdominal spasms, which helps. She was placed on a Sancuso patch, which she began with Cycle #2. This worked quite well to control her breakthrough nausea for about a week up until she started having nausea, vomiting, and diarrhea again last week. She has had significant anxiety which preceded treatment. She also reports a history of significant depression. She has had quite a few psychosocial stressors as she is trying to adopt her two grandchildren. She had a court hearing yesterday, which she believes went well. We have adjusted her antiemetic regimen to include lorazepam with each cycle as well as Emend along with IV dexamethasone. She has had significant diarrhea as well and is now using Imodium approximately two tablets per day. At her last visit, she told me she was still not eating solid foods other than things like applesauce and string cheese consistency. She does admit that she believes that she had significant anxiety and fear of eating solids, then would have symptoms like nausea, vomiting, or diarrhea, which would further make her fearful of eating solids. We discussed counseling and psychotherapy at her last visit, and she tells me that she is agreeable and has undergone counseling in the past. She was mildly neutropenic at the start of Cycle #2, though was feeling quite well at that time, and as such, we proceeded with treatment and provide growth factor support with Neupogen 480 mcg. She received five doses, and then this was discontinued as we believe she was simply having a delayed response to growth factor due to her ongoing neutropenia. She was afebrile. She last received fluids yesterday. She met with our perinatal social worker, Jackie, last week as well. She is here today to initiate her third cycle. She is currently eating a cooked egg in front of me and also has serna and Hebrew toast in front of her. She reports eating solids slowly since our visit last week. She has not had any nausea, vomiting, or diarrhea at all in three days now. PAST MEDICAL HISTORY 1. Hypertension. 2. Hypercholesterolemia. 3. Patient reports history of anxiety, currently on Lexapro. FAMILY HISTORY There is reported family history of colon cancer in her father, who at 54 of colon cancer. SOCIAL HISTORY The patient works as a public health nurse. She is a never smoker. There is no history of illicit drug abuse or alcohol abuse. CURRENT MEDICATIONS 1. MiraLAX. 2. Dicyclomine. 3. Losartan. 4. Atorvastatin. 5. Lexapro. 6. Hydrochlorothiazide. 7. Omeprazole 40 mg daily. 8. Lorazepam 0.5 mg p.o. every eight hours p.r.n. chemo-induced nausea, vomiting, or anxiety. 9. Oral potassium 20 mEq daily. ALLERGIES No known drug allergies. REVIEW OF SYSTEMS CONSTITUTIONAL: Patient reports significant improvement since we saw her last week. She has not had any nausea, vomiting, or diarrhea for about three days now. She is now eating some solid food. She is holding liquids down well. She denies any fevers, chills, or night sweats. No recent infections. She does have some generalized fatigue. HEENT: Patient occasionally notices a sore throat, which she describes as possibly having a mouth sore in the back of her throat, but this is stable. No mouth sores. She denies odynophagia or dysphagia. RESPIRATORY: She denies any cough, sputum production, or hemoptysis. No pleuritic chest pain. CARDIOVASCULAR: She denies any chest pain. No syncope or presyncope. GASTROINTESTINAL: She continues to have some generalized abdominal pain, cramping, bloating, and right lower quadrant spasm-type pains. This is alleviated with Bentyl p.r.n. as well as Gas-X p.r.n. She has had significant nausea and vomiting and breakthrough nausea and vomiting throughout chemotherapy. She remains on Sancuso patch. She is using lorazepam for nausea. Compazine makes her too dizzy. Zofran did not really work, though the Sancuso does work. For her GERD, she is on omeprazole, but does not take this very frequently. She is drinking fluids well. She did try Boost shakes to supplement last week, though was not able to hold these down. She has been eating solids for several days now. When she discusses her nausea and vomiting, she does end up discussing how anxious she is in general. GENITOURINARY: No dysuria, hematuria, or genitourinary discharge. She does report some stress urinary incontinence during intense moments of nausea and vomiting. MUSCULOSKELETAL: No new focal areas of pain. ENDOCRINE: She denies any vasomotor symptoms. No heat or cold intolerance. She has some fatigue and some generalized weakness, though appears improved compared to last week. NEUROLOGIC: She denies any headache, numbness, or tingling. She has had occasional pharyngeal and peripheral dysesthesias, most noticeable after receiving oxaliplatin. This then dissipates after a couple of days. She has had only occasional numbness in her fingertips, but this has been extremely transient. PSYCHIATRIC: Patient has significant anxiety at baseline. She also has a history of depression. She is currently on Lexapro for her depression. She has been in counseling in the past and has undergone psychotherapy for her severe anxiety and depression as well. She denies any worsening depression, suicidal or homicidal ideation. She is in much better spirits today and believes that her court hearing in order to adopt her two grandchildren went well yesterday. She is not tearful today as she was last week. She does report some feelings of guilt as she is not able to care for her grandchildren and even help them with their homework since she has been feeling ill throughout chemo. She does report a good support system with her , her daughter, and friends in the community. DERM: She denies any rash or skin changes. No bleeding. No bruising. The remainder of a 12-point review of systems was performed today and is otherwise negative. PHYSICAL EXAMINATION VITAL SIGNS: Temperature 97.6, P 95, R 16, BP 123/74, oxygen saturation 94% room air. Weight today 69.9 kg, down from 73 kg on 01/30/19. GENERAL: In general, this is a pleasant 63-year-old woman who appears to be in better spirits, appears only mildly fatigued, and in no acute distress. HEAD: Normocephalic, atraumatic. EYES: Sclerae anicteric. ENT, MOUTH: No visible mouth sores. No signs of mucositis. NECK: Supple. No lymphadenopathy. No JVD. NEUROLOGIC: Patient is awake, alert, and oriented x3. PSYCHIATRIC: Mood and affect are appropriate today. Patient is notably in much better spirits as she is smiling quite a bit more and reports feeling better. She does have quite a bit of anxiety. LUNGS: Clear breath sounds to auscultation bilaterally. No wheezes, rales, or rhonchi. Respiratory effort is normal. CARDIOVASCULAR: Regular rate and rhythm. No murmurs, gallops, or rubs. GASTROINTESTINAL: Limited as patient is in a seated position. Bowel sounds are positive x4. Abdomen is soft, minimally distended, and mildly tender at the right upper quadrant. Patient also has some mild tenderness at the epigastrium. DERM: No rash. No widespread bruising. No petechiae or purpura. MUSCULOSKELETAL: No pain to palpation of the bony spinous processes. EXTREMITIES: No edema. No clubbing or cyanosis. LABORATORY CBC today: WBC 11.7, ANC 9.3, hemoglobin 13.2, hematocrit 39.5%, platelets 156,000. CMP today: Sodium 137, potassium down to 2.9, previously 3.0, serum creatinine normal at 0.80, random glucose mildly elevated at 118. AST elevated at 46, ALT elevated at 103, alkaline phosphatase normal at 108, total protein down to 5.9, previously 7.1, with albumin down to 3.4, previously normal at 4.2. IMAGING CT chest, abdomen, and pelvis with contrast at [facility] on December 12, 2018: 1. Again noted are numerous matted loops of small bowel in the left side of the abdomen which appear to be adherent to left side of the colon. Although these changes could be inflammatory, malignancy should be excluded. There are infiltrative changes and nodularity seen throughout the omentum. Although this could represent edema, findings are concerning for carcinomatosis. 2. There is enhancement and thickening of the terminal ileum. There is also mild fluid distention of the distal ileal loops. This raises the question of possible inflammatory bowel disease, and clinical correlation needed. There has been a slight increase in the small amount of free pelvic and abdominal fluid. 3. In the left adnexa, there is a 4.1 x 3.8 cm complex structure most likely related to the left ovary. Further evaluation with pelvic ultrasound to exclude an ovarian mass is recommended. 4. A 2 mm subpleural noncalcified nodule lateral aspect of the left lower lobe appears unchanged. IMPRESSION AND PLAN This is a pleasant 63-year-old woman with a high-grade appendiceal/colonic adenocarcinoma with carcinomatosis. She has met with Dr. Meade at the [facility]. Plan is for her to receive chemotherapy with FOLFOX up front with four cycles, or two months. She will then undergo re-imaging with a CT, and depending on those findings, she will then either continue with another four cycles of FOLFOX and consideration of surgical debulking and hyperthermic intraperitoneal chemotherapy (HIPEC). She started Cycle #1 on January 16, 2019. She is here today for her third total cycle. She has required intravenous fluid hydration and electrolyte replacement since initiating treatment secondary to dehydration and volume contraction, all related to nausea, vomiting, and diarrhea. She has also had significant anticipatory nausea. She has had difficulty all in all with grade 2 to 3 nausea and vomiting and grade 1 to 2 fatigue. She has had grade 2 diarrhea, but is now utilizing Imodium more often. She has also had some gastroesophageal reflux disease-type symptoms, managed well with daily omeprazole, though she is not taking this daily as ordered. She has had some abdominal spasms and colicky type pain, which presented with the diagnosis, which is being managed well with Bentyl p.r.n. She remains on oral potassium replacement for her hypokalemia, which tends to wax and wane. We have adjusted her antiemetic regimen here in clinic due to her persistent and breakthrough nausea and vomiting, to include a neurokinin-1 (Emend) along with lorazepam intravenously, in addition to standard premedications. She is now off the Sancuso patch, which she began with Cycle #2. I am hopeful that this will continue to help as this did help her the first week she had it on. We can also consider either the addition of oral dexamethasone in the three days following chemotherapy versus daily olanzapine. She has had some anorexia, multifactorial, related to gastrointestinal sensitivities, dysgeusia, as well as anxiety. She did require G-CSF support after Cycle #2 as her ANC was minimally low to start her cycle #2. She received Neupogen 480 mcg for a total of five days, with her last dose given on 02/08/19. Her ANC did not show a significant improvement and did spike up and then back down. We believed that she had a delayed response to growth factor. Today, she appears to be in much better spirits psychologically and physically as she is now eating solid foods. 1. Neutropenia: Now resolved. ANC is up to 9.3. This is elevated due to recent Neupogen, and hopefully, this will continue to stay normal. 2. Dose reduction: Today, she will start with a dose reduction of 15% on all cytotoxic agents, specifically oxaliplatin and 5-FU, due to her neutropenia grade 2 to 3 last week, as well as due to her breakthrough nausea, vomiting, and diarrhea, grade 2. We are hopeful that this will improve her symptomatology. 3. Nausea, diarrhea, dehydration: Currently resolved. We will need to continue to monitor on a weekly basis, and she has required intravenous fluid hydration quite a bit since initiating treatment. She is aware to call us if her symptoms recur in order so that we can rehydrate her. There is a large psychological factor with her preexisting anxiety and depression, as well as her anticipatory nausea, as well as the psychosocial stressors as she is trying to adopt her two grandchildren, which she was in the process of doing already prior to her diagnosis. 4. Potential future antiemetic treatment: Will need to consider either oral dexamethasone in the three days following chemotherapy versus other antidepressants/antipsychotics such as daily olanzapine. 5. Counseling: Patient is agreeable to this and has had counseling in the past. She has several friends who are therapists and will call those counselors. She will notify us if she needs a referral. She is in good spirits and is not suicidal. 6. She will proceed with Cycle #3 with the 15% dose reduction today. 7. She will return to clinic as scheduled next week for followup and repeat labs. 8. We will recheck a CMP later this week on when she returns for her 5-FU pump disconnect. 9. Patient will then return to clinic for followup two weeks from now on a Wednesday, back to her normal Tuesdays, for followup and Cycle #4 of FOLFOX. 10. Patient will be due to follow up with Dr. Harris in March. 11. CMP today revealed a mild transaminitis with elevated LFTs. AST was elevated up to 46, and ALT was elevated at 103. This may certainly be related to her overall disease as she has had some mild transaminitis in the past. This may certainly be related to chemotherapy effect, and hopefully after today's dose reduction, this will improve. She is due for a CMP later this week, and we will also recheck this next week, and we will continue to evaluate. She does have a hypoalbuminemia, but hopefully this will also start to correct as she starts to take in more solid foods. MTDD
[2019-02-16 14:15] VITALS: BP 126/75
[2019-02-16] MEDS: HEPARIN FLSH (PORT) 500 UN/5ML IVP PRN (14:18)
--- NOTE | 2019-02-17 19:09 | ONCOLOGY FOLLOW UP NOTE ---
EVENT DATE: February 16, 2019 Patient was in today for scheduled 5-FU pump disconnect. CMP drawn today revealed mild hyponatremia at 133. She also had some mild hypokalemia with a potassium level at 3.2. This is stable and improved from her baseline. She is on oral potassium replacement. More concerning, however, was her transaminitis. Her LFTs have slowly been rising, and today's labs are higher than previous. Total bilirubin is normal at 0.3. AST is up to 116 today, which is a bit more than three times of the upper limits of normal. ALT is up to 169 today, previously 103, and currently this is about two times upper limits of normal. Total protein remains low at 5.9 with mild hypoalbuminemia with albumin level today at 3.4. Albumin was also 3.4 earlier this week. I had a brief discussion with the patient chairside in the infusion room. I explained lab results today. She has some general abdominal pain and colicky-type spasms, as well as some right lower quadrant pain, which she has had since diagnosis. This is largely unchanged. She does not have any organomegaly on cursory examination today. I asked Kristina Veliz about her home medication regimen. She reports that she's taking Tylenol Extra Strength two tablets or 1000 mg every six hours around the clock. In addition to that, she's also taking ibuprofen 200 mg tablets, three tablets at a time every six hours. Calculating this, she is taking max of 4 g of acetaminophen per day. She tells me that this is the regimen she has been doing since her cancer diagnosis, though we weren't aware of this. She tells me that she has always been on this daily dose of ibuprofen, since breaking her foot last year. We were not aware of her excessive NSAID use with both ibuprofen and Tylenol. She does tell me that she wakes herself up and is making sure that she takes all of these medications around the clock. She also tells me that she is taking her lorazepam around the clock and wakes herself up at night to take this. I explained to patient that she does have elevated liver enzymes. She did just receive Cycle #3 earlier this week, which we gave with a 15% dose reduction. We're hopeful that this will significantly improve her symptoms and overall performance status, and this should, too, help with the transaminitis as this elevation could certainly be due to chemotherapy effect, especially with FOLFOX regimen. However, we will certainly continue to monitor her closely. She will be back in the clinic next week, and I will repeat labs at that point. If she continues to show elevated transaminases next week, I will then likely move forward with spot checking and abdominal ultrasound/ultrasound of the liver for baseline. I gave the patient signs and symptoms of when to call our office. I did instruct her to stop using as much Tylenol and ibuprofen. She is going to cut down her Tylenol by half. I also explained to patient that if she is having this amount of pain, and pain that her Bentyl does not alleviate, then she needs to be placed on something better and more efficacious. She verbalized understanding and agrees with my plan. YOANNA
[2019-02-20 08:58] LABS: PLATELET COUNT, AUTOMATED 189 K/uL (150-450)
[2019-02-20 09:13] VITALS: BP 139/88
[2019-02-20] MEDS: LIDOCAINE/SOD BICARB 8.4% SYR ID PRN (10:17)
[2019-02-20] MEDS: NS(*) 0.9% 1000 ML BAG 1,000 ML IV PRN (10:17)
--- NOTE | 2019-02-20 14:10 | ONCOLOGY FOLLOW UP NOTE ---
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 CHIEF COMPLAINT Patient received Cycle #3 with FOLFOX last Wednesday, given at a 15% dose reduction and oxaliplatin and 5-FU). She did require several doses of G-CSF after Cycle #2. She is here today for followup labs and evaluation due to persistent breakthrough nausea, vomiting and diarrhea as well as elevated transaminases seen on labs last week. 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 Towards the end of 2018, she started having problems with her bowel movements. They have become more and more difficult to pass, and at times, she had significant associated pain. She had initially presented with these symptoms, and it was thought potentially that it was related to her diet. She made some dietary changes in that regard. She eventually underwent a CT scan of the chest, abdomen, and pelvis on December 12, 2018. That scan revealed numerous matted loops of small bowel in the left abdomen as well as infiltrative changes and nodularity of the omentum. There was a complex structure of or near the left adnexa measuring 4.1 x 2.8 cm, as well as a 2 mm subpleural nodule in the left lower lobe. She was referred for colonoscopy, which occurred December 15, 2018. Colonoscopy revealed a mass at the cecum, which was biopsied. Initial pathology evaluation was indicative of invasive colonic adenocarcinoma. Second opinion at [facility] showed a poorly differentiated adenocarcinoma. She then underwent an MRI of the abdomen. 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 This was compared to prior studies, and it was felt to be getting smaller potentially, but at least stable. Kristina Veliz then was seen at the [facility] by Dr. Meade and his team. Pathology was reviewed as well as imaging. Recommendation was made for her to receive chemotherapy with FOLFOX to start. Plan is for her to have two months of FOLFOX, four doses, followed by re-imaging, and depending on response, either continuation with another four doses or two months of FOLFOX. There is also potential plan for her to undergo surgical debulking with HIPEC. She started Cycle #3 on January 16, 2019. She has had persistent nausea and vomiting to include anticipatory nausea and vomiting, which even began prior to her first cycle. She has had grade 2/3 nausea and vomiting as well as grade 2 diarrhea and grade 2 fatigue. She has required IV fluid hydration often through our office as well as electrolyte replacement for hypokalemia. She is currently on oral potassium supplement. She is using Bentyl p.r.n. for abdominal spasms, which does help. She is now on a Sancuso patch every week for chemotherapy and breakthrough nausea and vomiting secondary to chemotherapy. She was not able to use Compazine at home as this made her too dizzy. She is using lorazepam around the clock for chemo-induced nausea and vomiting as well as to help with her anxiety. She did have significant anxiety which preceded treatment. She tells me that she has had significant depression and anxiety, requiring medications and even in the past counseling. She is using one Imodium to 1-1/2 doses of Imodium when she has diarrhea. She has had quite a bit of stress going on as she has been trying to adopt her two grandchildren. She had a court hearing for this yesterday and tells me that everything went smoothly and she and her will be awarded custody. Her in-clinic antiemetic regimen has been adjusted to include Emend IV with dexamethasone as well as lorazepam. She was not eating solids for quite some time and admitted that she had some significant anxiety and fear of eating solids. Last week she was eating solids but tells me that she began to have symptoms with nausea, vomiting and most diarrhea on of last week. Of note, she did call us Wednesday and reported that she was having an excellent day and was feeling quite well. She did require growth factor support, several doses, after Cycle #2. She received Cycle #3 last week given with a 15% dose reduction. We plan to continue this dose reduction with all subsequent treatments. She was noted to have a delayed response to Neupogen. Today, she tells me that her biggest issue has been significant nausea with some occasional vomiting as well as diarrhea. She fells quite fatigued. Lastly, she was taking 4 grams of Tylenol every day as well as high doses of ibuprofen 600 mg four times a day. She started doing this shortly after starting treatment. I did inform her of her elevated transaminases last week and asked her to cut out Tylenol and decrease her ibuprofen by half. We made a plan to re-evaluate her pain today to see if she needed any prescription pain medication. Plan was also to hold off on any imaging if liver enzymes were better today. She continues to report this is generalized abdominal pain, occasionally more noticeable in the right lower quadrant. This is also spasming in nature. PAST MEDICAL HISTORY 1. Hypertension. 2. Hypercholesterolemia. 3. Patient reports history of anxiety, currently on Lexapro. FAMILY HISTORY There is reported family history of colon cancer in her father, who at 54 of colon cancer. SOCIAL HISTORY The patient works as a public health nurse. She is a never smoker. There is no history of illicit drug abuse or alcohol abuse. CURRENT MEDICATIONS 1. MiraLAX. 2. Dicyclomine. 3. Losartan. 4. Atorvastatin. 5. Lexapro. 6. Hydrochlorothiazide. 7. Omeprazole 40 mg daily. 8. Lorazepam 0.5 mg p.o. every eight hours p.r.n. chemo-induced nausea, vomiting, or anxiety. 9. Oral potassium 20 mEq daily. ALLERGIES No known drug allergies. REVIEW OF SYSTEMS CONSTITUTIONAL: Kristina tells me that she has quite a bit of fatigue today. She feels like she needs fluids. She has had nausea, vomiting and diarrhea for the last 48 hours. She has been eating some solid foods. No recent fevers. HEENT: No vision changes. No epistaxis. No mouth sores. She denies any odynophagia or dysphagia. RESPIRATORY: She denies any cough, sputum production, or hemoptysis. No pleuritic chest pain. CARDIOVASCULAR: She denies any chest pain. No syncope or presyncope. GASTROINTESTINAL: She continues to report generalized abdominal pain, cramping, bloating as well as some right lower quadrant spasm-type pains. This is alleviated with Bentyl p.r.n. and Gas-X p.r.n. She has had significant nausea and vomiting and breakthrough nausea and vomiting throughout chemotherapy. She remains on Sancuso patch. She is using lorazepam for nausea around the clock. She is not utilizing Compazine as this made her too dizzy. Sancuso is working much better for her versus Zofran. She has had GERD and is on omeprazole when she remembers to take this. She is not eating solids over the last week and prior to this was mostly on liquids. She does become quite anxious when discussing her nausea and vomiting. She has used 1-1/2 doses of Imodium Max each day for the last two days. GENITOURINARY: No dysuria, hematuria, or genitourinary discharge. She does report some stress urinary incontinence during intense moments of nausea and vomiting. MUSCULOSKELETAL: No new focal areas of pain. ENDOCRINE: She denies any vasomotor symptoms. No heat or cold intolerance. She is reporting significant fatigue today secondary to dehydration related to decreased oral intake. NEUROLOGIC: She denies any headache, numbness, or tingling. She has had occasional pharyngeal and peripheral dysesthesias, most noticeable after receiving oxaliplatin. This then dissipates after a couple of days. She has had only occasional numbness in her fingertips, but this has been extremely transient. PSYCHIATRIC: Positive for significant anxiety and depression at baseline which preceded chemotherapy. She is currently on Lexapro for her depression. She is using lorazepam for chemo-induced nausea and vomiting, which also helps with her anxiety. She reports that she has been in counseling in the past and has undergone psychotherapy on several occasions for her severe anxiety and depression. She denies any worsening depression, suicidal or homicidal ideation. She will be adopting her two grandchildren as she was just granted custody last week. DERM: She denies any rash or skin changes. No bleeding. No bruising. The remainder of a 12-point review of systems was performed today and is otherwise negative. PHYSICAL EXAMINATION VITAL SIGNS: Weight 148.0 pounds, down 5 pounds compared to last week. Temperature 97.2, P 115, R 16, BP 137/88, oxygen saturation 97% room air. GENERAL: In general, this is a pleasant 63-year-old woman who appears fatigued and volume contracted but is in no acute distress. HEAD: Normocephalic, atraumatic. EYES: Sclerae anicteric. ENT, MOUTH: No visible mouth sores. No signs of mucositis. NECK: Supple. No lymphadenopathy. No JVD. NEUROLOGIC: Patient is awake, alert, and oriented x3. PSYCHIATRIC: Mood and affect are appropriate. LUNGS: Clear breath sounds to auscultation bilaterally. No wheezes, rales, or rhonchi. Respiratory effort is normal. CARDIOVASCULAR: Regular rate and rhythm. No murmurs, gallops, or rubs. GASTROINTESTINAL: Abdomen is soft, minimally distended. Bowel sounds are positive x4. Mild tenderness at the right upper quadrant. No tenderness in the epigastrium. No organomegaly. DERM: No rash. No widespread bruising. No petechiae or purpura. MUSCULOSKELETAL: No pain to palpation of the bony spinous processes. EXTREMITIES: No edema. No clubbing or cyanosis. LABORATORY CBC today: WBC 5.2, ANC 4.5, hemoglobin 14.6, hematocrit 43.1%, platelets 189,000. CMP today: Sodium low at 131, previously 133, potassium up to normal at 3.6, glucose elevated to 141, serum creatinine normal at 0.80. LFTs all improved today. AST elevated at 52, down from 116. ALT elevated at 103 but down from 169 last week. Alkaline phosphatase is normal at 86. Total bilirubin normal at 1.2 Magnesium today 1.7, normal. IMAGING CT chest, abdomen, and pelvis with contrast at [facility] on December 12, 2018: 1. Again noted are numerous matted loops of small bowel in the left side of the abdomen which appear to be adherent to left side of the colon. Although these changes could be inflammatory, malignancy should be excluded. There are infiltrative changes and nodularity seen throughout the omentum. Although this could represent edema, findings are concerning for carcinomatosis. 2. There is enhancement and thickening of the terminal ileum. There is also mild fluid distention of the distal ileal loops. This raises the question of possible inflammatory bowel disease, and clinical correlation needed. There has been a slight increase in the small amount of free pelvic and abdominal fluid. 3. In the left adnexa, there is a 4.1 x 3.8 cm complex structure most likely related to the left ovary. Further evaluation with pelvic ultrasound to exclude an ovarian mass is recommended. 4. A 2 mm subpleural noncalcified nodule lateral aspect of the left lower lobe appears unchanged. IMPRESSION AND PLAN This is a pleasant 63-year-old woman with a high-grade appendiceal/colonic adenocarcinoma with carcinomatosis. She has met with Dr. Meade at the [facility]. Plan is for her to receive chemotherapy with FOLFOX up front with four cycles, or two months. She will then undergo re-imaging with a CT, and depending on those findings, she will then either continue with another four cycles of FOLFOX and consideration of surgical debulking and hyperthermic intraperitoneal chemotherapy (HIPEC). She started Cycle #1 on January 16, 2019. She has now completed three cycles with her third cycle given last Wednesday. We did initiate a 15% dose-reduction on all cytotoxic agents last week starting with her third cycle. We will continue with this dose reduction with all subsequent treatments. Dose reduction was done secondary to grade 2/3 Neutropenia, grade 2 fatigue and grade 2/3 nausea and vomiting. She has required IV fluid hydration and electrolyte replacement through our office since initiating treatment. She also has significant anticipatory nausea and breakthrough nausea. She has had grade 1 to 2 fatigue and grade 2 diarrhea. She has had some GERD type symptoms, which is managed fairly well with daily omeprazole, although she forgets to take this daily. She has had some abdominal spasms and colicky pain, which is managed with Bentyl. She is on oral potassium replacement and her potassium today is in good limits. We have adjusted her in- clinic antiemetic regimen. She is now on an NK1 receptor (Emend) along with dexamethasone and IV lorazepam on chemo days. She is also on Sancuso patch every week to help with chemo-induced nausea and her resultant breakthrough nausea. I do feel that she needs some additional antiemetics to help. She has had some diarrhea but is only using occasional low-doses of Imodium. 1. Neutropenia: Resolved. ANC today is 4.5 and she is almost one week out from Cycle #3. At this point, no further G-CSF is needed. 2. Hyponatremia/hypokalemia: Currently still hyponatremic with sodium level at 131 today, although patient is volume contracted. She has had baseline hyponatremia in the low 130s. Potassium level is back up to normal today at 3.6. She will continue on her oral supplements at home. 3. Decrease oral intake/dehydration. Patient has had 5-pound decrease in weight over the last week. She has been drinking less and has had increased nausea, vomiting and diarrhea. She is mildly tachycardic today. We will plan to administer 1L normal saline IV today for rehydration. She does not need any electrolyte replacement based on today's labs. Magnesium was also normal today. 4. Elevated transaminases: Her transaminitis has improved compared to LFTs just done on February 16, 2019. Her AST is not even two times upper limit and her ALT also improved, also not quite at two times upper limit of normal. She has stopped using Tylenol and has cut down her ibuprofen dose. At this point, I feel that her transaminitis was multifactorial, related to chemotherapy and high doses of NSAIDs. She is to refrain from Tylenol and may continue to use ibuprofen 600 mg max per day. 5. Currently, I will hold off on any imaging of the liver. 6. Pain: I have given her a prescription for a short course of Tramadol 50 mg tablets, one p.o. every 8 hours p.r.n. severe pain #20. I cautioned on potential side effects. If she needs to use this, she will start off at bedtime first. Discussed that she does not have to take this if she does not feel she is having significant pain but I would like her to take this as she was taking way too much Tylenol and ibuprofen. 7. Nausea: Kristina Veliz could certainly benefit from additional antiemetics for breakthrough nausea. I am going to start her on dexamethasone 8 mg daily on days 2, 3 and 4 with each chemo cycle. Since she is having breakthrough nausea and vomiting, she will start that this week as well even though this is her off week from chemotherapy. We did explain potential side effects related to oral glucocorticosteroids and we discussed at length today how to take this. She verbalized understanding. 8. I have written orders so that patient can return to clinic at the end of this week if needed for repeat fluid hydration. 9. Patient will return to the clinic next week as scheduled for followup, labs and Cycle #4 with FOLFOX. I will be ordering re-staging CT of the chest, abdomen and pelvis orders to be done after Cycle #4. MTDD
[2019-02-24 08:36] VITALS: BP 91/56
[2019-02-24] MEDS: NS(*) 0.9% 1000 ML BAG 1,000 ML IV PRN (08:48)
[2019-02-24] MEDS: LIDOCAINE/SOD BICARB 8.4% SYR ID PRN (08:48)
[2019-02-24] MEDS: HEPARIN FLSH (PORT) 500 UN/5ML IVP PRN (09:35)
[2019-02-27 09:00] VITALS: BP 109/57
[2019-02-27] MEDS: LIDOCAINE/SOD BICARB 8.4% SYR ID PRN (09:21)
[2019-02-27] MEDS: HEPARIN FLSH (PORT) 500 UN/5ML IVP PRN (09:21)
[2019-02-27] MEDS: NS(*) 0.9% 500 ML BAG 500 ML IV PRN (09:22)
[2019-02-27 12:10] VITALS: BP 96/55
[2019-02-28 08:09] VITALS: BP 94/61
[2019-02-28] MEDS: HEPARIN FLSH (PORT) 500 UN/5ML IVP PRN (08:19)
[2019-02-28] MEDS: LIDOCAINE/SOD BICARB 8.4% SYR ID PRN (08:19)
[2019-02-28 08:29] LABS: PLATELET COUNT, AUTOMATED 219 K/uL (150-450)
[2019-02-28] MEDS: NS(*) 0.9% 1000 ML BAG 1,000 ML IV PRN (08:30)
[2019-02-28 10:33] VITALS: BP 95/65
--- NOTE | 2019-02-28 10:37 | RADIOLOGY IMAGING REPORT ---
FACILITY: [facility] PATIENT NAME: Kristina Parkinson : 1955 MR: [id number] V: [id number] EXAM DATE: ORDERING PHYSICIAN: MOY GONZALES TECHNOLOGIST: Location: [facility] Patient: Kristina Parkinson : 1955 Visit/Account:[id number] Date of Sevice: 02/28/2019 LIVER HISTORY: Elevated LFTs, colon/appendix cancer COMPARISON: CT November 30, 2018 FINDINGS: Gallbladder: Absent Liver: Negative. Common duct: Normal, 4.4 mm diameter. Pancreas: Partially obscured by bowel, visualized aspects unremarkable. Right kidney: There are small nonshadowing echogenic foci within the right kidney which may represent small fatty deposits. There is no evidence of hydronephrosis. The right kidney measures 11.2 cm in length Upper abdominal aorta and IVC: Patent. Ascites: None visualized. IMPRESSION: Post surgical changes from cholecystectomy No sonographic abnormality of the liver is demonstrated. Report Dictated By: Estrella Hallman MD at 02/28/2019 10:25 AM Report E-Signed By: Estrella Hallman MD at 02/28/2019 10:31 AM WSN:[id number]
--- NOTE | 2019-02-28 11:50 | Oncology Note ---
US liver done today and results were in after patient was DC/d from clinic. Reviewed results, which are unremarkable. RN will call patient today to inform her of negative/normal results. Pt is to keep all FU appointments. SALOME Rivera APRN,CONDUIT REAMER OPERATOR Feb 28, 2019 11:50
--- NOTE | 2019-02-28 13:26 | NUR ---
Per the request of [employer]ICE CLEANING MACHINE TENDER, Violet Mueller contacted the patient and notified her that the CT scan she had done today was normal. The patient verbalized understanding and had no questions at this time.
--- NOTE | 2019-02-28 13:46 | ONCOLOGY FOLLOW UP NOTE ---
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 CHIEF COMPLAINT Patient is here for ongoing care for her appendiceal adenocarcinoma. She is due for Cycle #4 with FOLFOX today. She started receiving this at a 15% dose- reduction, which began with Cycle #3. 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 Towards the end of 2018, she started having problems with her bowel movements. They have become more and more difficult to pass, and at times, she had significant associated pain. She had initially presented with these symptoms, and it was thought potentially that it was related to her diet. She made some dietary changes in that regard. She eventually underwent a CT scan of the chest, abdomen, and pelvis on December 12, 2018. That scan revealed numerous matted loops of small bowel in the left abdomen as well as infiltrative changes and nodularity of the omentum. There was a complex structure of or near the left adnexa measuring 4.1 x 2.8 cm, as well as a 2 mm subpleural nodule in the left lower lobe. She was referred for colonoscopy, which occurred December 15, 2018. Colonoscopy revealed a mass at the cecum, which was biopsied. Initial pathology evaluation was indicative of invasive colonic adenocarcinoma. Second opinion at [facility] showed a poorly differentiated adenocarcinoma. She then underwent an MRI of the abdomen. 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 This was compared to prior studies, and it was felt to be getting smaller potentially, but at least stable. Kristina Veliz then was seen at the [facility] by Dr. Meade and his team. Pathology was reviewed as well as imaging. Recommendation was made for her to receive chemotherapy with FOLFOX to start. Plan is for her to have two months of FOLFOX, four doses, followed by re-imaging, and depending on response, either continuation with another four doses or two months of FOLFOX. There is also potential plan for her to undergo surgical debulking with HIPEC. She started Cycle #1 on January 16, 2019. She has had persistent nausea and vomiting to include anticipatory nausea and vomiting, which even began prior to her first cycle. She has had grade 2/3 nausea and vomiting as well as grade 2 diarrhea and grade 2 fatigue. She has required IV fluid hydration often through our office as well as electrolyte replacement for hypokalemia. She is currently on oral potassium supplement. She is using Bentyl p.r.n. for abdominal spasms, which does help. She is now on a Sancuso patch every week for chemotherapy and breakthrough nausea and vomiting secondary to chemotherapy. She was not able to use Compazine at home as this made her too dizzy. She is using lorazepam around the clock for chemo-induced nausea and vomiting as well as to help with her anxiety. She did have significant anxiety which preceded treatment. She tells me that she has had significant depression and anxiety, requiring medications and even in the past counseling. She is using one Imodium to 1-1/2 doses of Imodium when she has diarrhea. She has had quite a bit of stress going on as she has been trying to adopt her two grandchildren. She did have a court hearing last week and reports that she and her will be awarded custody. We have added additional medication to her antiemetic regimen here in clinic to include IV Emend and dexamethasone as well as lorazepam. She was not eating solids for quite some time and admitted that she had become so significantly anxious and fearful of eating solids. She has recently starting introducing solids to her regimen. She began to have some nausea and vomiting last week and did require some IV fluid hydration. She remains on oral potassium 20 mEq daily for pre-existing hypokalemia. She received growth factor support with several doses of Neupogen after Cycle #2. When she received Cycle #3 two weeks ago, we did give this with a 15% dose reduction. We plan to continue the dose reduction with all subsequent treatments. She was noted to have a delayed response to Neupogen. Lastly, at her last visit, we were made aware that she was taking excessive amounts of acetaminophen and ibuprofen, with daily intake of 4 grams of Tylenol as well as 2,400 mg of ibuprofen every day. We instructed her to discontinue her Tylenol and decrease her ibuprofen by half. Plan was made to re-evaluate her pain. She reports ongoing right lower quadrant as well as generalized abdominal pain. She was then given a short course of Tramadol at her last visit to try for moderate to severe pain since we did take her off acetaminophen. Today, she tells me that she was having quite a bit of pain on Wednesday and reports that this was severe. She waited and called her friends and family the next day, and they all encouraged her to take the Tramadol. She finally started the Tramadol Wednesday and tells me that she has been using this every 4 hours. This has been working well for her pain. Currently, she rates her pain level at "1/10". She has had some nausea but no vomiting. Her diarrhea has improved. She did not have diarrhea for several times up until this morning with one loose stool and she did take an Imodium for this. She tells me if she takes her Tramadol she then feels like she can eat. Liver enzymes were elevated at last visit, although we are re-evaluating these as she was on excessive doses of acetaminophen and ibuprofen. She is here today to initiate Cycle #4. Plan is to have repeat scans done after this cycle. PAST MEDICAL HISTORY 1. Hypertension. 2. Hypercholesterolemia. 3. Patient reports history of anxiety, currently on Lexapro. FAMILY HISTORY There is reported family history of colon cancer in her father, who at 54 of colon cancer. SOCIAL HISTORY The patient works as a public health nurse. She is a never smoker. There is no history of illicit drug abuse or alcohol abuse. CURRENT MEDICATIONS 1. MiraLAX. 2. Dicyclomine. 3. Losartan. 4. Atorvastatin. 5. Lexapro. 6. Hydrochlorothiazide. 7. Omeprazole 40 mg daily. 8. Lorazepam 0.5 mg p.o. every eight hours p.r.n. chemo-induced nausea, vomiting, or anxiety. 9. Oral potassium 20 mEq daily. ALLERGIES No known drug allergies. REVIEW OF SYSTEMS CONSTITUTIONAL: Kristina Veliz tells me that she has some fatigue. She had a fairly good week but has had some nausea. No vomiting. She had a loose stool this morning. She has been eating some solid foods. No recent fevers or infections. HEENT: No vision changes. No epistaxis. No mouth sores. She denies any odynophagia or dysphagia. RESPIRATORY: She denies any cough, sputum production, or hemoptysis. No pleuritic chest pain. CARDIOVASCULAR: She denies any chest pain. No syncope or presyncope. GASTROINTESTINAL: She continues to have some right lower quadrant pain as well as generalized abdominal pain and cramping and bloating. Her pain has significantly improved since starting Tramadol two days ago on Wednesday. She is able to eat better and eat more solid foods with Tramadol on board. She does use Bentyl p.r.n. for spasm-type pain as well as Gas-X for bloating. She has had significant nausea and vomiting and breakthrough nausea and vomiting throughout chemotherapy. She tells me that she had some nausea throughout this last week but no actual vomiting. She remains on Sancuso patch every 7 days. She uses lorazepam for nausea around the clock and even wakes herself to take this. She is not using Compazine as this makes too dizzy. Sancuso works better than Zofran. She has had some GERD and takes omeprazole mostly daily, although not always. She has been introducing solids over the last couple of weeks. She becomes quite anxious when discussing her nausea and vomiting. She has had significant diarrhea, grade 2/3 while on chemotherapy, although this improved over the last week. She only started to have loose stools this morning and tells me she had one loose stool but did take one Imodium. She is not using her Imodium much better. GENITOURINARY: No dysuria, hematuria, or genitourinary discharge. She does report some stress urinary incontinence during intense moments of nausea and vomiting. MUSCULOSKELETAL: No new focal areas of pain. ENDOCRINE: She denies any vasomotor symptoms. No heat or cold intolerance. She has generalized fatigue and weakness. This is mostly related to dehydration, which is related to decreased oral intake. NEUROLOGIC: She denies any headache, numbness, or tingling. She has had occasional pharyngeal and peripheral dysesthesias, most noticeable after receiving oxaliplatin. This then dissipates after a couple of days. She has had only occasional numbness in her fingertips, but this has been extremely transient. PSYCHIATRIC: Positive for significant anxiety and depression at baseline which preceded chemotherapy. She is currently on Lexapro for her depression. She is using lorazepam for chemo-induced nausea and vomiting, which also helps with her anxiety. She reports that she has been in counseling in the past and has undergone psychotherapy on several occasions for her severe anxiety and depression. She denies any worsening depression, suicidal or homicidal ideation. She will be adopting her two grandchildren as she was just granted custody last week. DERM: She denies any rash or skin changes. No bleeding. No bruising. The remainder of a 12-point review of systems was performed today and is otherwise negative. PHYSICAL EXAMINATION VITAL SIGNS: Weight 65.5 kg, down 4 pounds. T 97.6, P 105, R 16, BP 109/57, oxygen saturation 91% room air. Current pain level at "1/10". GENERAL: In general, this is a pleasant 63-year-old woman who appears fatigued and volume contracted but is in no acute distress. HEAD: Normocephalic, atraumatic. EYES: Sclerae anicteric. ENT/MOUTH: No visible mouth sores. No signs of mucositis. NECK: Supple. No lymphadenopathy. No JVD. NEUROLOGIC: Patient is awake, alert, and oriented x3. PSYCHIATRIC: Mood and affect are appropriate, although it should be noted that patient does have significant anxiety. During visits, she does become quite emotional and tends to become anxious, happy and then sad. LUNGS: Clear breath sounds to auscultation bilaterally. No wheezes, rales, or rhonchi. Respiratory effort is normal. CARDIOVASCULAR: Regular rate and rhythm. No murmurs, gallops, or rubs. GASTROINTESTINAL: Abdomen is soft, minimally tender in the right lower quadrant, nondistended. Bowel sounds are positive x4. No organomegaly. DERM: No rash. No widespread bruising. No petechiae or purpura. MUSCULOSKELETAL: No pain to palpation of the bony spinous processes. EXTREMITIES: No edema. No clubbing or cyanosis. LABORATORY CBC today: WBC 1.6, ANC 0.4, hemoglobin 12.3, hematocrit 35.6%, platelets 178,000. CMP today: Sodium down to 129, previously 131, potassium down to 2.9, previously 3.6. Serum creatinine normal at 0.8, random glucose mildly elevated at 133, AST improved at 46, previously 52, ALT up to 136, previously 103, although has been as high as 169. Alkaline phosphatase normal at 87. Total protein low at 6.1 with normal albumin of 3.5. IMAGING CT chest, abdomen, and pelvis with contrast at [facility] on December 12, 2018: 1. Again noted are numerous matted loops of small bowel in the left side of the abdomen which appear to be adherent to left side of the colon. Although these changes could be inflammatory, malignancy should be excluded. There are infiltrative changes and nodularity seen throughout the omentum. Although this could represent edema, findings are concerning for carcinomatosis. 2. There is enhancement and thickening of the terminal ileum. There is also mild fluid distention of the distal ileal loops. This raises the question of possible inflammatory bowel disease, and clinical correlation needed. There has been a slight increase in the small amount of free pelvic and abdominal fluid. 3. In the left adnexa, there is a 4.1 x 3.8 cm complex structure most likely related to the left ovary. Further evaluation with pelvic ultrasound to exclude an ovarian mass is recommended. 4. A 2 mm subpleural noncalcified nodule lateral aspect of the left lower lobe appears unchanged. IMPRESSION AND PLAN This is a pleasant 63-year-old woman with a high-grade appendiceal/colonic adenocarcinoma with carcinomatosis. She has met with Dr. Meade at the [facility]. Plan is for her to receive chemotherapy with FOLFOX up front with four cycles, or two months. She will then undergo re-imaging with a CT, and depending on those findings, she will then either continue with another four cycles of FOLFOX and consideration of surgical debulking and hyperthermic intraperitoneal chemotherapy (HIPEC). She started Cycle #1 on January 16, 2019. She has now completed three cycles. We initiated a 15% dose-reduction on all cytotoxic agents starting with her third cycle and we will continue this with all subsequent treatments. Dose reduction is being given due to grade 2/3 neutropenia, grade 2/3 fatigue and grade 2/3 nausea and vomiting. She has also had grade 2/3 diarrhea. She has required IV fluid hydration and electrolyte replacement through our office since initiation treatment. She has significant anticipatory nausea as well as breakthrough nausea. She has had GERD symptoms, managed fairly well with omeprazole, although she does not take this daily. She has had some abdominal spasms and colicky pain, which has improved some with Bentyl. She remains on oral potassium replacement with 20 mEq daily for her pre-existing hypokalemia. We have adjusted her in-clinic antiemetic regimen. She is now on an NK1 receptor (Emend) along with IV dexamethasone and IV lorazepam on the day of chemo. She is on a Sancuso patch for her 5HT3, every week, to help with chemo-induced nausea and vomiting resulting in breakthrough nausea. She is using this instead of Zofran IV. At her last visit, we also instructed her to start oral dexamethasone, 8 mg daily on days 2, 3 and 4 with each chemo cycle. For her pain, we started her on a short course of Tramadol 50 mg tablets, which she waited several days to take. Once she started Tramadol she noticed a significant improvement in her pain. She's quite happy about this. Initial prescription was written for every 8 hours p.r.n. and patient tells me that she is actually taking one every 4 hours. She tells me that her pharmacist told her to take it this way. She is also concerned about needing a refill as she only has 10 tablets left. She tells me that she did, indeed, cut out her acetaminophen and is only taking 600 mg of ibuprofen per day. 1. Neutropenia: Unfortunately, this has recurred with ANC today at 0.4. As such, Cycle #4 with FOLFOX will be held today. We reviewed neutropenic precautions. 2. Patient will receive G-CSF with Neupogen 480 mcg subcutaneous today. She will return to clinic tomorrow morning for repeat CBC and hopefully she will have improved.It is noted that she had a delayed response to Neupogen in the past. If she is still neutropenic tomorrow, we will plan to administer another dose, a second dose, of Neupogen 480 mcg. 3. If she is not able to be treated tomorrow, we will repeat a CBC on Wednesday. Hopefully, we will be able to treat with FOLFOX on Wednesday. She is aware that will be the last day of the week she can be treated with chemotherapy as her regimen does include a 46-hour continuous infusion ambulatory pump. If necessary, we will have to delay all this week and treat next week. 3. Hyponatremia/hypokalemia: Likely related to volume contraction, dehydration, related to decreased oral intake as well as nausea, vomiting and diarrhea. Her sodium has fluctuated in the past. We will replace potassium today with 20 mEq IV. For her oral potassium, I have instructed her to slowly increase this up to 30 mEq daily. She does have significant nausea and vomiting and I am concerned that she will not be able to tolerate higher doses of potassium. 4. We will recheck CMP later this week if treated, if not next week. 5. Transaminitis: Recently, she has had some elevated transaminases. She was taking extremely high doses of Tylenol and ibuprofen daily. She has now cut out Tylenol from her regimen and is down to 600 mg of ibuprofen per day. Her LFTs have improved, although she does still have an elevated ALT which is a bit higher compared to last visit. AST is still elevated, although ALK phos is normal. As such, I am going to go ahead and order an ultrasound of the liver to further evaluate. I discussed this at length with patient and she is aware of the rationale. 6. Re-staging scans: These have been scheduled for next week, although our office is going to move these out by a week since we are having to delay treatment. I explained to patient that our plan is to re-image her post completion of four cycles of FOLFOX. 7. Pain: We discussed this at length. I have asked her to make sure that she follows our instructions prior to adjusting her dose herself. I have e- prescribed a refill of Tramadol 500 mg tablets today, #50, no refills with instructions to take 1 to 2 tablets every six hours p.r.n. pain. 8. Nausea: She will continue to use her current antiemetic regimen, which includes Sancuso patch weekly for breakthrough nausea, lorazepam for anticipatory nausea, breakthrough nausea as well as anxiety and will take her dexamethasone 8 mg daily on days 2, 3 and 4 with each chemo cycle. This means that she will start this a day after receiving FOLFOX in clinic. Discussed this at length again today. 9. She will return to clinic tomorrow for repeat CBC and possible second dose of Neupogen. 10. She will return to clinic in one week for followup. 11. She is scheduled to follow up with Dr. Harris on March 30, 2019, and she should be done with all four cycles of FOLFOX at that time and should have her re-staging CT scans done by that time as well. Further plans on treatment will be made after that visit. JEFERSOND
[2019-03-01 11:20] VITALS: BP 123/81
[2019-03-01 11:45] LABS: PLATELET COUNT, AUTOMATED 301 K/uL (150-450)
[2019-03-01] MEDS: LIDOCAINE/SOD BICARB 8.4% SYR ID PRN (11:56)
[2019-03-01] MEDS: HEPARIN FLSH (PORT) 500 UN/5ML IVP PRN (11:56)
[2019-03-01] MEDS: NS(*) 0.9% 1000 ML BAG 1,000 ML IV PRN (12:08)
[2019-03-01] MEDS: PALONOSETRON 0.25 MG/5 ML VIAL IVP PRN ×2 (12:21→12:24)
[2019-03-01] MEDS: DEXAMETHASONE SOD PHOS 10MG/ML IVP PRN (12:22)
[2019-03-01] MEDS: FOSAPREPITANT DIM 150 MG/5 ML 150 MG in NS(*) 0.9% 250 ML BAG 245 ML IVPB PRN (12:54)
[2019-03-01] MEDS: DEXTROSE 5%(*) 100 ML BAG 100 ML IVPB PRN (15:28)
[2019-03-01 16:19] VITALS: BP 117/78
[2019-03-03 13:34] VITALS: BP 105/65
[2019-03-03] MEDS: HEPARIN FLSH (PORT) 500 UN/5ML IVP PRN (13:40)
[2019-03-06 11:12] VITALS: BP 86/61
[2019-03-06] MEDS: LIDOCAINE/SOD BICARB 8.4% SYR ID PRN (12:42)
[2019-03-06] MEDS: NS(*) 0.9% 1000 ML BAG 1,000 ML IV PRN (12:42)
[2019-03-06] MEDS: HEPARIN FLSH (PORT) 500 UN/5ML IVP PRN (12:42)
--- NOTE | 2019-03-06 14:47 | NUR ---
SW visited with pt today after some concerns had come up that she was taking ativan around the clock (and perhaps taking it inappropriately). The pt was tearful during the visit. She states she is happy that her kids are now officially adopted and that they have had many moments of celebration, yet many moments of grief over the situation. She indicated it was very difficult to face her son in court, and their relationship has been "difficult" to deal with since that time. She agrees that she would like to visit with a counselor at this time and asked for a referral to be sent to Lydia Rees at [facility]. She stated she believed she was very well supported throughout her journey so far, and has accepted support, but now feels she needs more emotional support aside from what her friends and family can provide. SW left a message for Lydia indicating a referral, and is awaiting a call back. The pt spoke at length about her life and expectations she has, hopes she has for herself and what she hopes for life after cancer. She admits she has been discouraged lately as she is beginning to feel fatigued on top of feeling nauseated. The pt states she has been utilizing ativan proactively to treat the nausea, and she states the other medications she has tried have not worked, or made her very dizzy. She states ativan tends to work the best (and indicated it helps with her anxiety around becoming nauseated). SW made suggestions to consider deep breathing, progressive muscle relaxation and a mindfulness hakan on her phone to treat the nausea and anxiety when she begins to notice it. AT this time, it does seem that the pt has been using ativan inappropriately, however, it seems that the purpose for which she is using it for (mainly nausea) makes sense, however because of it's potential for abuse, or dependence, the patient is being discouraged from taking the medication around the clock and limiting its use to PRN. The pt and her will be visiting about other medications to manage nausea today.
[2019-03-06 16:50] VITALS: BP 108/69
--- NOTE | 2019-03-07 20:50 | ONCOLOGY FOLLOW UP NOTE ---
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 CHIEF COMPLAINT Patient is here today for acute care visit after calling our office this morning and reporting ongoing fatigue and weakness. She was in the clinic Wednesday for her 5-FU pump disconnect after Cycle #4, and it was noted that she was having some confusion. We had her go the ER for a CT, which was negative. She was discharged. Patient is here today with her . She is currently in a wheelchair secondary to fatigue and weakness. 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 Towards the end of 2018, she started having problems with her bowel movements. They have become more and more difficult to pass, and at times, she had significant associated pain. She had initially presented with these symptoms, and it was thought potentially that it was related to her diet. She made some dietary changes in that regard. She eventually underwent a CT scan of the chest, abdomen, and pelvis on December 12, 2018. That scan revealed numerous matted loops of small bowel in the left abdomen as well as infiltrative changes and nodularity of the omentum. There was a complex structure of or near the left adnexa measuring 4.1 x 2.8 cm, as well as a 2 mm subpleural nodule in the left lower lobe. She was referred for colonoscopy, which occurred December 15, 2018. Colonoscopy revealed a mass at the cecum, which was biopsied. Initial pathology evaluation was indicative of invasive colonic adenocarcinoma. Second opinion at [facility] showed a poorly differentiated adenocarcinoma. She then underwent an MRI of the abdomen. 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 This was compared to prior studies, and it was felt to be getting smaller potentially, but at least stable. Kristina Veliz then was seen at the [facility] by Dr. Meade and his team. Pathology was reviewed as well as imaging. Recommendation was made for her to receive chemotherapy with FOLFOX to start. Plan is for her to have two months of FOLFOX, four doses, followed by re-imaging, and depending on response, either continuation with another four doses or two months of FOLFOX. There is also potential plan for her to undergo surgical debulking with HIPEC. She started Cycle #1 on January 16, 2019. She has had persistent nausea and vomiting to include anticipatory nausea and vomiting, which even began prior to her first cycle. She has had grade 2/3 nausea and vomiting as well as grade 2 diarrhea and grade 2 fatigue. She has required IV fluid hydration often through our office as well as electrolyte replacement for hypokalemia. She is currently on oral potassium supplement. She is using Bentyl p.r.n. for abdominal spasms, which does help. She is now on a Sancuso patch every week for chemotherapy and breakthrough nausea and vomiting secondary to chemotherapy. She was not able to use Compazine at home as this made her too dizzy. She is using lorazepam around the clock for chemo-induced nausea and vomiting as well as to help with her anxiety. She did have significant anxiety which preceded treatment. She tells me that she has had significant depression and anxiety, requiring medications and even in the past counseling. She is using one Imodium to 1-1/2 doses of Imodium when she has diarrhea. She has had quite a bit of stress going on as she has been trying to adopt her two grandchildren. She did have a court hearing last week and reports that she and her will be awarded custody. We have added additional medication to her antiemetic regimen here in clinic to include IV Emend and dexamethasone as well as lorazepam. She was not eating solids for quite some time and admitted that she had become so significantly anxious and fearful of eating solids. She has recently starting introducing solids to her regimen. She began to have some nausea and vomiting last week and did require some IV fluid hydration. She remains on oral potassium 20 mEq daily for pre-existing hypokalemia. She received growth factor support with several doses of Neupogen after Cycle #2. When she received Cycle #3 two weeks ago, we did give this with a 15% dose reduction. We plan to continue the dose reduction with all subsequent treatments. She was noted to have a delayed response to Neupogen. She was using excessive amounts of acetaminophen and ibuprofen, with daily intake of 4 g of Tylenol as well as 2400 mg of ibuprofen daily. We have since asked her to discontinue that. We did check an ultrasound of the liver, which was normal. She was given a short course of tramadol, and at her last visit, she reported this was alleviating her pain quite nicely. She continues to report some nausea, but no recent vomiting. Her diarrhea as improved as of today, though it is difficult to assess how many stools she is having a day or how many episodes of emesis she is having a day as she does become confused, and her answers do tend to differ each time. Since Wednesday after her head CT, her is now giving her her medications. The ER also instructed her to stop tramadol completely and to use Tylenol Extra Strength one tablet every eight hours as needed. Patient is extremely concerned today about her pain. She is requesting that we at least let her take half a Tramadol The patient's tells me that she became lightheaded earlier today at home and almost fainted after using the restroom, but her caught her. She did not hit her head and did not suffer any trauma. She continues to use lorazepam around the clock every six hours for chemo-induced nausea and vomiting. She is still setting alarms and waking herself up for this. PAST MEDICAL HISTORY 1. Hypertension. 2. Hypercholesterolemia. 3. Patient reports history of anxiety, currently on Lexapro. FAMILY HISTORY There is reported family history of colon cancer in her father, who at 54 of colon cancer. SOCIAL HISTORY The patient works as a public health nurse. She is a never smoker. There is no history of illicit drug abuse or alcohol abuse. CURRENT MEDICATIONS 1. MiraLAX. 2. Dicyclomine. 3. Losartan. 4. Atorvastatin. 5. Lexapro. 6. Hydrochlorothiazide. 7. Omeprazole 40 mg daily. 8. Lorazepam 0.5 mg p.o. every eight hours p.r.n. chemo-induced nausea, vomiting, or anxiety. 9. Oral potassium 20 mEq daily. ALLERGIES No known drug allergies. REVIEW OF SYSTEMS CONSTITUTIONAL: Patient has some noticeable fatigue. She is in a wheelchair currently due to fatigue and weakness. She tells me that Wednesday was a good day for her, and she began to have weakness and diarrhea yesterday. No fevers or infections. HEENT: No vision changes. No epistaxis. No mouth sores. She denies any odynophagia or dysphagia. RESPIRATORY: She denies any cough, sputum production, or hemoptysis. No pleuritic chest pain. CARDIOVASCULAR: She denies any chest pain. No syncope or presyncope. Patient tells me that she is still taking all of her antihypertensives, to include hydrochlorothiazide and losartan. She did stop Lipitor prior to initiating chemotherapy, but tells me that she continued taking her antihypertensives. There was some confusion with this. GASTROINTESTINAL: She continues to report some generalized abdominal pain and right lower quadrant pain. She has cramping and bloating. Last week, she reported her pain significantly improved after starting tramadol a week ago. She was eating better up until yesterday. She also uses Bentyl p.r.n. for spasms and Gas-X for bloating. She has had significant nausea and vomiting and breakthrough nausea and vomiting with chemotherapy, though is unable to tell me exactly when her last episode of nausea or emesis was. She is on a Sancuso patch. She uses lorazepam every six hours for nausea and vomiting and is waking herself up for this. She sets alarms. She has not used Compazine since initially starting chemotherapy as this made her too dizzy. Sancuso works better than Zofran, though now she states she is unsure if this works. She is on omeprazole for GERD, though does not take this every morning because she is concerned about being able to sit upright for 30 minutes after taking it. She was not eating solids for quite some time, but recently reintroduced solids. There was no physiological reason for not taking solids. She reports becoming anxious and fearful of eating solids. She occasionally uses Imodium, but does not take this often for her diarrhea. She forgets that she can take this. GENITOURINARY: No dysuria, hematuria, or genitourinary discharge. She does report some stress urinary incontinence during intense moments of nausea and vomiting. MUSCULOSKELETAL: No new focal areas of pain. She reports generalized weakness. ENDOCRINE: She denies any heat or cold intolerance. She has significant fatigue and generalized weakness and lethargy. She believes this is related to dehydration, which began again yesterday. NEUROLOGIC: She denies any headache, numbness, or tingling. She has had occasional pharyngeal and peripheral dysesthesias, most noticeable after receiving oxaliplatin. This then dissipates after a couple of days. She has had only occasional numbness in her fingertips, but this has been extremely transient. She's starting to become forgetful. PSYCHIATRIC: Positive for significant anxiety and depression at baseline, which preceded chemotherapy. She is currently on Lexapro for her depression. She is on 10 mg and has been on this dose for many years. She is currently utilizing lorazepam for chemo-induced nausea and vomiting every six hours, which she admits helps her anxiety. She tells me that she takes this around the clock because she is actually afraid to not take it and potentially have nausea. Patient admits, "I like my Ativan." She has then also stated, "I think this has now become a habit." She does report that she has been in counseling in the past and has undergone psychotherapy on several occasions for severe anxiety and depression, but has been reluctant to start professional outpatient psychotherapy recently. She denies any worsening depression, suicidal or homicidal ideation. She will be adopting her two grandchildren, and she was just granted custody last week. She reports a good support system from her , her adult daughter, Edith, and many friends. DERM: She denies any rash or skin changes. No bleeding. No bruising. The remainder of a 12-point review of systems was performed today and is otherwise negative. PHYSICAL EXAMINATION VITAL SIGNS: T 98.4, P 101, R 16, BP 86/61, oxygen saturation 100% room air. GENERAL: In general, this is a pleasant 63-year-old woman who appears significantly fatigued and volume contracted, but overall is in no acute distress. She is forgetful and seems somewhat confused today when discussing her pain regimen and number of stools and emesis episodes. HEAD: Normocephalic, atraumatic. EYES: Sclerae anicteric. ENT, MOUTH: Dry mucous membranes. Lips are dry. No visible mouth sores. No mucositis. NEUROLOGIC: Patient is awake, alert, oriented x3, though she does have difficulty with short-term memory. She is slightly confused, but is having difficulty keeping track of dates and times, especially when it comes to how many episodes of nausea, vomiting, or diarrhea she has had. Otherwise, she is appropriate, though fatigued. PSYCHIATRIC: Mood and affect are appropriate, although it should be noted that patient does have significant anxiety and her emotions fluctuate. During visits, she does become quite emotional and tends to become anxious, happy, and then sad. LUNGS: Clear breath sounds to auscultation bilaterally. No wheezes, rales, or rhonchi. Respiratory effort is normal. CARDIOVASCULAR: Mildly tachycardic with regular rhythm. No murmurs. No ectopy. GASTROINTESTINAL: Abdomen is soft, minimally tender in the right lower quadrant, nondistended. Bowel sounds are positive x4. No organomegaly. DERM: No rash. No widespread bruising. No petechiae or purpura. MUSCULOSKELETAL: No pain to palpation of the bony spinous processes. EXTREMITIES: No edema. No clubbing or cyanosis. LABORATORY CBC today: WBC 3.1, ANC 2.1, hemoglobin 13.0, hematocrit 38.0%, platelets 197,000. Hemoglobin has improved compared to last week at 11.8. CMP today: Sodium low at 130, potassium down to 2.8. Phosphorus returned back at 1.9 after time of visit. Magnesium normal at 1.9. Total bilirubin normal, 1.0. AST normal at 25, ALT normal at 49, alkaline phosphatase normal at 84. Total protein low at 5.8 with normal albumin of 3.5. IMAGING 1. CT head without contrast at [facility] on 03/03/2019: Senescent changes without acute abnormality. 3. Liver ultrasound at [facility] on 02/28/2019: a. Postsurgical changes from cholecystectomy. b. No sonographic abnormality of the liver is demonstrated. 2. CT chest, abdomen, and pelvis with contrast at [facility] on December 12, 2018: a. Again noted are numerous matted loops of small bowel in the left side of the abdomen which appear to be adherent to left side of the colon. Although these changes could be inflammatory, malignancy should be excluded. There are infiltrative changes and nodularity seen throughout the omentum. Although this could represent edema, findings are concerning for carcinomatosis. b. There is enhancement and thickening of the terminal ileum. There is also mild fluid distention of the distal ileal loops. This raises the question of possible inflammatory bowel disease, and clinical correlation needed. There has been a slight increase in the small amount of free pelvic and abdominal fluid. c. In the left adnexa, there is a 4.1 x 3.8 cm complex structure most likely related to the left ovary. Further evaluation with pelvic ultrasound to exclude an ovarian mass is recommended. d. A 2 mm subpleural noncalcified nodule lateral aspect of the left lower lobe appears unchanged. IMPRESSION AND PLAN This is a pleasant 63-year-old woman with a high-grade appendiceal/colonic adenocarcinoma with carcinomatosis. She has met with Dr. Meade at the [facility]. Plan is for her to receive chemotherapy with FOLFOX up front with four cycles, or two months. She will then undergo re-imaging with a CT, and depending on those findings, she will then either continue with another four cycles of FOLFOX and consideration of surgical debulking and hyperthermic intraperitoneal chemotherapy (HIPEC). She started Cycle #1 on January 16, 2019. She completed her fourth cycle last week, though did have a two-day dose delay secondary to neutropenia and required G-CSF times two doses. We did initiate a 15% dose reduction on all cytotoxic on all cytotoxic agents, which began with her third cycle. Her 5-FU pump was disconnected last Wednesday, which was Cycle #4. Her dose reduction was secondary to grade 2/3 neutropenia, grade 2/3 fatigue, grade 2/3 nausea and vomiting, as well as grade 2/3 diarrhea. She has required intravenous fluid hydration and electrolyte replacement and had pre- existing hypokalemia prior to initiating chemotherapy. We have adjusted her in- clinic antiemetic regimen as well as her home antiemetic regime. She most recently was started on a Sancuso patch along with dexamethasone for three days after each cycle. There is some confusion about what is working for her today and timing of her medications. She also initiated tramadol one week ago for right lower quadrant pain, though after her confusion on Wednesday and her head CT via the Emergency Room, which was negative, she was instructed to stop tramadol completely. It was thought that perhaps she was having some increased effect from tramadol as she has been taking benzodiazepines around the clock for her chemotherapy-induced nausea and vomiting and has been volume contracted with decreased oral intake as well as diarrhea. She is now using Extra Strength Tylenol 500 mg every eight hours. She is extremely concerned about her pain and is really wanting to restart tramadol and is saying that she could even take half a tablet if needed. She is also requesting a refill on her Ativan and is somewhat fixated on this. As per note above, she does report that she may be taking lorazepam now out of habit and out of fear of what may happen if she does not take it. All of this is certainly understandable given her current situation, though is at the same time concerning. Lastly, we are aware that she stopped her Lipitor prior to chemotherapy, but during prior visits, she had mentioned that she was off all prior medications, which we thought included her antihypertensives. Today, patient reports that apparently she has continued taking her antihypertensive regimen to include her hydrochlorothiazide and losartan. She is certainly not hypertensive at this time. She is volume contracted today. She is also somewhat confused in the form of short-term memory difficulty. She is also having difficulty keeping track of her medications, and as a result, we have had her start administering medications since last Wednesday. Her head CT was negative. 1. Dehydration, overall volume contraction: We will plan to administer 1 L normal saline intravenously today and will replaced potassium with 20 mEq intravenously. 2. Antihypertensives/hypokalemia: I have instructed patient to discontinue her hydrochlorothiazide and losartan stat as of today. Explained to patient that we will inform her PCP. I again explained to patient that we were under the impression that she had stopped this, and given the fact that she is on chemotherapy and has had nausea, vomiting, and diarrhea, her blood pressure has in turn come down, and at this point, does not need any antihypertensives. 3. I requested a review of her medications by our Pharm.D., Miranda Kim, and this was done today. Miranda and I reviewed the patient's chart and medications thoroughly, and after my visit, Miranda did go in, sat down with patient and her , and discussed all of these changes again for greater than one hour. Instructions were written down for patient. 4. Nausea, chemotherapy induced, and anxiety: I will send in a refill of her lorazepam today electronically, 0.5 mg, one p.o., and will change this to every eight hours as needed for chemotherapy-induced nausea and vomiting, #42, no refills, a two-week supply. Explained rationale to patient. We would like to keep track of this and help with pill counts. Also explained to patient's that this is to be taken only as needed, and we no longer want her to wake herself up and interrupt her sleep to take this if she is not feeling ill. Again, this was written down for patient. 5. Pain: We will restart her tramadol 50 mg, and no refill was given today as this was just filled on 02/27/19. We have instructed her to take half of a 50 mg tablet, or 25 mg, every eight hours only as needed for pain. Discussed that for mild pain, she may use Tylenol Extra Strength one tablet, and for [id number] pain, may use half a tablet of tramadol as needed. She is still to stay off ibuprofen. 6. She may continue to use Bentyl as needed. 7. Our concern is with causing too many changes in her regimen and having patient and her have difficulty remembering this. Again, this was written down for patient. 8. Depression: Explained to patient that we would like for her to increase her Lexapro to 20 mg. After discussion, patient agreed, though she was initially hesitant as she has been on 10 mg for many years. Discussed that we feel that a daily antidepressant which can help with daily anxiety would be best in order to help prevent excessive benzodiazepine use. For now, patient will continue on her current Lexapro dose, but I will be contacting her primary care physician, La Cassidy, Nurse Practitioner, to discuss this tomorrow. I am quite certain that she will be in agreement to increase her Lexapro, and then her office will likely call patient to initiate a new refill and discuss. 9. Patient will keep imaging appointment for next week with re-staging CT scan chest, abdomen, and pelvis. She is scheduled to have these done on 03/13/19. 10. Patient will return to clinic next Wednesday for followup with me, labs, and will placed on the schedule tentatively for chemotherapy, what will be Cycle #5 of FOLFOX, at current dose reduction. Explained to patient and her that further chemotherapy will largely depend on result of CT scans, which she will be having done next Wednesday. 11. I will discuss this case with Dr. Harris by phone today. YOANNA
[2019-03-08 11:13] VITALS: BP 139/101
[2019-03-08] MEDS: NS(*) 0.9% 1000 ML BAG 1,000 ML IV PRN (11:18)
[2019-03-08] MEDS: HEPARIN FLSH (PORT) 500 UN/5ML IVP PRN (11:18)
[2019-03-08] MEDS: LIDOCAINE/SOD BICARB 8.4% SYR ID PRN (11:18)
[2019-03-08 15:38] VITALS: BP 148/98
[2019-03-13] MEDS: HEPARIN FLSH (PORT) 500 UN/5ML IVP PRN (08:30)
[2019-03-13] MEDS: LIDOCAINE/SOD BICARB 8.4% SYR ID PRN (08:30)
[2019-03-13 08:31] VITALS: BP 122/69
--- NOTE | 2019-03-13 13:57 | RADIOLOGY IMAGING REPORT ---
FACILITY: [facility] PATIENT NAME: Kristina Parkinson : 1955 MR: [id number] V: [id number] EXAM DATE: ORDERING PHYSICIAN: MOY GONZALES TECHNOLOGIST: Location: [facility] Patient: Kristina Parkinson : 1955 Visit/Account:[id number] Date of Sevice: 03/13/2019 EXAMINATION: CT Chest With Contrast CT Abdomen With Contrast CT Pelvis With Contrast 03/13/2019 8:50 AM HISTORY: Colon cancer. Ovarian mass. Status post chemotherapy. TECHNIQUE: Spiral scan was obtained through the chest, abdomen and pelvis during injection of nonio fernandez iodinated intravenous contrast. Contrast: 75 mL of IV Isovue 370. One of the following dose optimization techniques was utilized in the performance of this exam: Autom ated exposure control; adjustment of the mA and/or kV according to the patient's size; or use of an i terative reconstruction technique. Specific details can be referenced in the facility's radiology C T exam operational policy. COMPARISON STUDIES: 12/12/2018. FINDINGS: CHEST: Lungs / pleura: Stable 2 mm lateral left lower lobe micronodule (series 4 image 72). Mediastinum / glenn: negative Heart / pericardium: negative Vessels: Port catheter enters on the right with the tip in SVC. Musculoskeletal / Body wall: Scoliotic spinal curvature. Lymph node assessment: negative Lower neck: negative ABDOMEN AND PELVIS: Liver / biliary: No focal liver lesion. Prior cholecystectomy. Pancreas: negative Spleen: 6 mm hypoenhancing focus (series 2 image 86, coronal image 47) is little changed from previou s. This does not appear to be a capsular-based metastatic implant. Adrenal glands: negative Kidneys / retroperitoneum: Small benign-appearing cortical cysts on the right. Pelvic structures: Left ovary 3.8 x 3.4 cm, stable to slightly diminished in prominence. Normal si ze right ovary. Bowel / peritoneum / mesenteries: Nodularity or infiltration along the omentum and mesentery is overa ll less evident. Mild amount of ascites is stable to subtly increased. There is some fullness along t he ileocecal valve and mild thickening of the TI. Small bowel loops also rest along the front of the descending colon with questionable tethering in the area of the previously suggested matted appearanc e although a distinct bowel mass is also not well-defined here. There is fluid in small bowel and sma ll bowel loops in the right lower quadrant measure up to just over 3.5 cm. Vessels: negative Musculoskeletal / Body wall: Degenerative changes in the spine. Lymph node assessment: negative IMPRESSION: 1. Findings of omental/peritoneal carcinomatosis are overall mildly improved comparing with December although ascites is stable to minimally increased. 2. There is some thickening of the ileocecal valve and TI. There also may be some tethering of small bowel to the descending colon, although a primary colon mass is not well-defined. Distal ileum is mil dly dilated and fluid-filled suggesting a degree of terminal ileal obstruction. 3. No clear evidence of metastatic disease in the chest. Stable indeterminate left lower lobe microno dule. 4. Essentially stable left ovarian prominence. Report Dictated By: Kenney Ramon MD at 03/13/2019 9:51 AM Report E-Signed By: Kenney Ramon MD at 03/13/2019 1:54 PM WSN:[id number]
[2019-03-14] MEDS: NS(*) 0.9% 500 ML BAG 500 ML IV PRN (09:25)
[2019-03-14] MEDS: LIDOCAINE/SOD BICARB 8.4% SYR ID PRN (09:25)
--- NOTE | 2019-03-14 11:15 | NUR ---
JACK followed up with pt today. She reported she got the news that we are discontinuing chemotherapy and moving forward with the plan to pursue HIPEC. Pt states she is more comfortable with this decision at this time. She stated last week when we saw her she was at the "lowest she has ever been". And yet, she was still trying to remain very hopeful. She was grateful that she started therapy and has at least three sessions with her therapist so far. She reports that it was a good fit, and she was glad she reached out to this therapist.
--- NOTE | 2019-03-14 11:26 | NUR ---
Patient is scheduled to see Dr. Fany Ramsey on April 05 @ 1300. Appointment card and information given to patient's nurse in [facility] today.
[2019-03-14] MEDS: HEPARIN FLSH (PORT) 500 UN/5ML IVP PRN (13:42)
[2019-03-14 13:45] VITALS: BP 131/83
[2019-03-16 11:01] LABS: PLATELET COUNT, AUTOMATED 235 K/uL (150-450)
[2019-03-16 11:42] VITALS: BP 133/81
--- NOTE | 2019-03-16 12:44 | ONCOLOGY FOLLOW UP NOTE ---
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 CHIEF COMPLAINT Patient is here today for a followup after re-staging CT scan done yesterday. She has completed four cycles of FOLFOX. Last dose was given on March 01, 2019. 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 Towards the end of 2018, she started having problems with her bowel movements. They have become more and more difficult to pass, and at times, she had significant associated pain. She had initially presented with these symptoms, and it was thought potentially that it was related to her diet. She made some dietary changes in that regard. She eventually underwent a CT scan of the chest, abdomen, and pelvis on December 12, 2018. That scan revealed numerous matted loops of small bowel in the left abdomen as well as infiltrative changes and nodularity of the omentum. There was a complex structure of or near the left adnexa measuring 4.1 x 2.8 cm, as well as a 2 mm subpleural nodule in the left lower lobe. She was referred for colonoscopy, which occurred December 15, 2018. Colonoscopy revealed a mass at the cecum, which was biopsied. Initial pathology evaluation was indicative of invasive colonic adenocarcinoma. Second opinion at [facility] showed a poorly differentiated adenocarcinoma. She then underwent an MRI of the abdomen. 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 This was compared to prior studies, and it was felt to be getting smaller potentially, but at least stable. Kristina Veliz then was seen at the [facility] by Dr. Meade and his team. Pathology was reviewed as well as imaging. Recommendation was made for her to receive chemotherapy with FOLFOX to start. Plan is for her to have two months of FOLFOX, four doses, followed by re-imaging, and depending on response, either continuation with another four doses or two months of FOLFOX. There is also potential plan for her to undergo surgical debulking with HIPEC. She started Cycle #1 on January 16, 2019. She has had persistent nausea and vomiting to include anticipatory nausea and vomiting, which even began prior to her first cycle. She has had grade 2/3 nausea and vomiting as well as grade 2 diarrhea and grade 2 fatigue. She has required IV fluid hydration often through our office as well as electrolyte replacement for hypokalemia. She is currently on oral potassium supplement. This was increased a couple of weeks ago up to 30 mEq daily. She is now completely off all antihypertensives to include Hydrochlorothiazide and Losartan. She has Bentyl to use p.r.n. abdominal spasms, although reports she has not used this since at least a week. We also placed her back on 1/2 of 50 mg tablet of Tramadol, which she can use every six hours as needed. She tells me she is now only taking about 1/2 tablet per day. She is also on Sancuso patch for breakthrough chemotherapy-induced nausea and vomiting. She reports that Compazine made her too dizzy and reports that Zofran oral did not help. She was also using Lorazepam around the clock to help her anxiety as well as chemo-induced nausea and vomiting and we most recently instructed her to decrease this to every six hours as needed. She tells me that she has not used Lorazepam for the last week. She fells like she is doing much better. She remains on her daily Lexapro, although did not increase this up to 20 mg per her PCP. She and I did discuss this at her last visit and I also spoke with her PCP after her last visit. She is concerned about increasing this and needing to take the increased dose. She is now seeing her counselor, Bev Bello. She has had about one or two episodes of diarrhea per day but tells me that these are somewhat formed. She is using only one to two doses of Imodium daily. She still feels stressed out. Her is managing her medication for her. She is eating some solids now. She believes she's lost approximately 50 pounds since being diagnosed and starting treatment. She is still taking Tylenol 500 mg tablet, one every morning and evening for pain. We had also placed her on dexamethasone 4 mg tablets two tablets to take the three days following chemotherapy. She has required several doses of Neupogen in the past. Although she has had neutropenia, she has never had any febrile neutropenia. We initiated a 15% dose reduction with Cycle #3, which we plan to continue with all subsequent treatments. Her most recent cycle, Cycle #4, was given with the same dose reduction. A few weeks ago, it came to our attention that she was taking excessive amounts of NSAIDs to include 2400 mg ibuprofen daily as well as 4 grams of Tylenol daily. She was having worsening transaminitis and we checked an ultrasound of the liver, which was normal. She has now cut out the ibuprofen and significantly reduced the Tylenol dose. She did require a head CT after her last visit due to some confusion, which we think was related to medication, compounded by dehydration and volume contraction. Today, she tells me that her pain is much improved. She feels that she is doing better from a cognitive standpoint. She had a pretty good weekend. She had re-staging CT scans done yesterday. PAST MEDICAL HISTORY 1. Hypertension. 2. Hypercholesterolemia. 3. Patient reports history of anxiety, currently on Lexapro. FAMILY HISTORY There is reported family history of colon cancer in her father, who at 54 of colon cancer. SOCIAL HISTORY The patient works as a public health nurse. She is a never smoker. There is no history of illicit drug abuse or alcohol abuse. CURRENT MEDICATIONS 1. MiraLAX. 2. Dicyclomine. 3. Losartan. 4. Atorvastatin. 5. Lexapro. 6. Hydrochlorothiazide. 7. Omeprazole 40 mg daily. 8. Lorazepam 0.5 mg p.o. every eight hours p.r.n. chemo-induced nausea, vomiting, or anxiety. 9. Oral potassium 20 mEq daily. ALLERGIES No known drug allergies. REVIEW OF SYSTEMS CONSTITUTIONAL: Patient has ongoing fatigue. She denies any recent fevers, chills or night sweats. She has recently felt better and reports having a good last few days. HEENT: No vision changes. No epistaxis. No mouth sores. She denies any odynophagia or dysphagia. RESPIRATORY: She denies any cough, sputum production, or hemoptysis. No pleuritic chest pain. CARDIOVASCULAR: She denies any chest pain. No syncope or presyncope. Patient is now off all of her antihypertensives. GASTROINTESTINAL: She does have some generalized abdominal pain and right lower quadrant pain, although tells me that this has been improved over the last week. Her cramping and bloating are less frequent. She has not used Bentyl for spasms in over a week. She does still Gas-X for bloating. She is using 1/2 of Tramadol tablet every day along with one Tylenol twice a day for her pain. She has had significant nausea and vomiting related to chemotherapy and remains on Sancuso patch. No nausea or vomiting in the last couple of days. No constipation. She is on omeprazole for GERD. She is eating some solid foods when she can. She does still have loose stools, approximately two per day and is taking Imodium each time she has a loose stool, which is averaging about two times per day. She began to have loose stools again yesterday and today. GENITOURINARY: No dysuria, hematuria, or genitourinary discharge. She has had some stress urinary incontinence during intense moments of nausea and vomiting. MUSCULOSKELETAL: No new focal areas of pain. She reports generalized weakness. ENDOCRINE: She denies any heat or cold intolerance. She has had some significant fatigue and generalized weakness throughout treatment. Her fatigue has improved as has her weakness. She does not feel lethargic. NEUROLOGIC: She denies any headache, numbness, or tingling. She has had occasional pharyngeal and peripheral dysesthesias, most noticeable after receiving oxaliplatin. This then dissipates after a couple of days. She has had only occasional numbness in her fingertips, but this has been extremely transient. She's starting to become forgetful. Patient feels that her cognition has improved. PSYCHIATRIC: Positive for significant anxiety and depression at baseline, which preceded chemotherapy. She is currently on Lexapro for her depression. She remains on 10 mg, although PCP did agree to increase this up to 20 mg daily. She is extremely concerned about starting a higher dose. She tells me she has been on 10 mg for so long and was sustained on that dose for quite a while. At her last visit, please see prior note, she has had difficulty with lorazepam and at last visit admitted "I like my Ativan". She also stated at last visit that she believed "This has now become a habit." She is now using this less often and is no longer taking this on a scheduled basis. She did recently adopt her two grandchildren. She reports a good support system from her , her adult daughter, Edith, and many friends. She is now seeing a counselor. DERM: She denies any rash or skin changes. No bleeding. No bruising. The remainder of a 12-point review of systems was performed today and is otherwise negative. PHYSICAL EXAMINATION VITAL SIGNS: Weight today 62.7 kg, down from initial visit at consultation where she weighed 78.3 kg. This is a 34.3 pound difference. T 97.4, P 73, R 17, BP 131/83, oxygen saturation 96% room air. GENERAL: In general, this is a pleasant 63-year-old woman who appears minimally volume contracted but otherwise is in no acute distress. She looks better than last week. She is less confused and mentation and outlook seem much improved. HEAD: Normocephalic, atraumatic. EYES: Sclerae anicteric. ENT/MOUTH: Somewhat dry mucous membranes. No visible mouth sores. NEUROLOGIC: Patient is awake, alert, oriented x3. She is a bit more talkative and seems more alert today. She does still have some occasional difficulty with short-term memory, although this is not as significant as in the previous weeks. She is able to better describe certainly dates and times of events. PSYCHIATRIC: Mood and affect are appropriate. It should be noted that patient does have significant anxiety and during visit she does become quite emotional and emotions range from anxious to happy and then sad. LUNGS: Clear breath sounds to auscultation bilaterally. No wheezes, rales, or rhonchi. Respiratory effort is normal. CARDIOVASCULAR: Regular rate and rhythm. No ectopy. GASTROINTESTINAL: Abdomen is soft, minimally tender in the right lower quadrant, minimal distention. Bowel sounds are positive x4. No organomegaly. DERM: No rash. No widespread bruising. No petechiae or purpura. MUSCULOSKELETAL: No pain to palpation of the bony spinous processes. EXTREMITIES: No edema. No clubbing or cyanosis. LABORATORY CBC today: WBC 2.0, ANC 0.3, hemoglobin 11.1, hematocrit 32.7%, platelets 254,000. CMP today: Minimally low sodium at 134, improved from 132, potassium 2.6, glucose up to 127 with normal serum creatinine at 0.70. Calcium normal at 8.4. LFTs have normalized with AST at 23, ALT at 30, alkaline phosphatase at 74. Total bilirubin normal at 0.4. She does have a hypoalbuminemia, which continues with albumin level at 3.1 today, down from 3.4 on March 08, 2019. Total protein is 5.5, down from 5.7 on March 08, 2019. IMAGING CT chest, abdomen and pelvis on March 13, 2019: 1. Findings of omental/peritoneal carcinomatosis are overall mildly improved compared with December, although ascites is stable to minimally increased. 2. There is some thickening of the ileocecal valve and TI. There also may be some tethering of small bowel to the descending colon, although primary colon mass is not well-defined. The distal ileum is mildly dilated and fluid-filled, suggesting a degree of terminal ileal obstruction. 3. No clear evidence of metastatic disease of the chest. Stable indeterminate left lower lobe micronodule. 4. Essentially stable left ovarian prominence. CT head without contrast at [facility] on 03/03/2019: Senescent changes without acute abnormality. Liver ultrasound at [facility] on 02/28/2019: a. Postsurgical changes from cholecystectomy. b. No sonographic abnormality of the liver is demonstrated. CT chest, abdomen, and pelvis with contrast at [facility] on December 12, 2018: a. Again noted are numerous matted loops of small bowel in the left side of the abdomen which appear to be adherent to left side of the colon. Although these changes could be inflammatory, malignancy should be excluded. There are infiltrative changes and nodularity seen throughout the omentum. Although this could represent edema, findings are concerning for carcinomatosis. b. There is enhancement and thickening of the terminal ileum. There is also mild fluid distention of the distal ileal loops. This raises the question of possible inflammatory bowel disease, and clinical correlation needed. There has been a slight increase in the small amount of free pelvic and abdominal fluid. c. In the left adnexa, there is a 4.1 x 3.8 cm complex structure most likely related to the left ovary. Further evaluation with pelvic ultrasound to exclude an ovarian mass is recommended. d. A 2 mm subpleural noncalcified nodule lateral aspect of the left lower lobe appears unchanged. IMPRESSION AND PLAN This is a pleasant 63-year-old woman with a high-grade appendiceal/colonic adenocarcinoma with carcinomatosis. She has met with Dr. Meade at the [facility]. Plan is for her to receive chemotherapy with FOLFOX up front with four cycles, or two months. She will then undergo re-imaging with a CT, and depending on those findings, she will then either continue with another four cycles of FOLFOX and consideration of surgical debulking and hyperthermic intraperitoneal chemotherapy (HIPEC). She started Cycle #1 on January 16, 2019. She has now completed four cycles, last dose given on March 01, 2019, with 5-FU pump off on March 03, 2019. We initiated at 15% dose reduction with Cycle #3. We plan to continue with this dose reduction for all subsequent treatment secondary to her grade 2/3 neutropenia, grade 2/3 fatigue, grade 2/3 nausea and vomiting as well as grade 2/3 diarrhea. She has required intravenous IV fluid hydration and electrolyte replacement and did have some pre-existing hypokalemia prior to initiating chemotherapy. We have adjusted her in-clinic antiemetic regimen. We have adjusted her home antiemetics. Most recently, she has been on a Sancuso patch for her breakthrough chemo-induced nausea as well as dexamethasone for three days following each cycle. She had some difficulty with confusion a couple of weeks ago and a head CT was done via the ER to rule out underlying issue. Head CT was negative. This was thought to be medication related and although the medications do not interact with each other, we felt that patient was using her Lorazepam too frequently as well as her Tramadol for pain and compounded by the fact that she was hardly eating any solids and was volume contracted secondary to dehydration. Her pain meds were stopped for a few days and she has now been instructed to take only 1/2 tablet of Tramadol as needed and she reports that she is only taking this once a day. She is using Extra-Strength Tylenol 500 mg one tablet twice a day. She is no longer on ibuprofen. She had difficulty with transaminitis several weeks ago. Liver enzymes have returned to normal and ultrasound of the liver was normal. She reports she is now taking less Lorazepam and less frequently, although did admit to taking this out of habit and fear of not taking it. She is no longer using Bentyl as often for her abdominal spasms. Overall, she is doing much better today and feels that her pain has improved. She is now completely off all antihypertensives to include Hydrochlorothiazide and Losartan. That certainly could have been a factor in her hypokalemia. She remains on oral potassium at home. Her mentation has improved, although she does have some difficulty with short-term memory but again today it is much improved and she is able to easier recall dates and times of events. She just had re-staging CT scan, which overall look stable with the exception of some mildly increased ascites, although there is some thickening at the ileocecal valve and there may be a suggestion of possible mild degree of terminal ilial obstruction. Overall, CT scan, when compared to last CT in December 2018 is stable but not great. 1. Imaging: I reviewed her CT scan results by phone with Dr. Harris yesterday. I discussed this with the patient and her today. Explained that although results appear stable, there is not as much of an improvement as we would have hoped for after four rounds of FOLFOX. It was also especially difficult for her to tolerate treatment considering her grade 2/3 toxicities to include nausea, vomiting, diarrhea, fatigue and neutropenia. As such, we feel that it is best for patient to return to her surgeon in [place] for surgical debulking with HIPEC. 2. Chemotherapy with FOLFOX will be placed ON HOLD for now. 3. We will contact her surgeon in [place], Dr. Earlene Ramsey, and help patient make appointment prior to her discharge today. She also followed up with Dr. Meade at [facility], with Medical Oncology. 4. Hypokalemia: Patient assures me that she is off all of her antihypertensives and assures me that she is taking her oral potassium. She feels somewhat dehydrated today, although not as bad as in the past but given her hypokalemia, we will hydrate her with 1L normal saline +30 me, Adela Ciel IV. 5. Nausea, chemotherapy-induced: She can remain on Sancuso patch and will continue to use her antiemetics per our last visit and instructions. She is no longer taking Lorazepam around the clock and I congratulated her on that. She does appear to be doing better from a nausea and vomiting perspective. 6. Pain: She is back on 1/2 tablet of Tramadol, which she is using approximately once a day along with Extra Strength one tablet twice a day. Her pain is under control at this time on that regimen and she may continue that. She still is to stay off ibuprofen. 7. She is no longer using Bentyl as often, although she does have this to use at home. She may continue to use Gas-X chewables as needed. 8. Depression: Currently on Lexapro 10 mg per her PCP, Maria Esther Mehta, Nurse Practitioner. This was recently increased to 20 mg per her PCP but patient decided against this. We discussed this at length. Patient is fixated on the higher dose and tells me that she is upset that she would need to take a higher dose after being on a lower dose for so many years. I explained to patient to see this from a practical and nursing perspective, as she is a public health nurse, and explained that even though medications may work at one dose for many years, it is possible to build up a tolerance and to need increased doses. I recommended she try to 20 mg dose for now as prescribed by her PCP as she does have significant anxiety and depression and this can help overall control and manage her mood better than p.r.n. Ativan. She tells me that she will think about this. 9. Neutropenia: Today, ANC is down to 0.3. She is afebrile and non-toxic appearing. We will administer Neupogen 480 mcg today to help prevent infection related to neutropenia. We will recheck a CBC at the end of this week in a couple of days. 10. We reviewed neutropenic precautions. 11. I think at this point it is best if we hold off, even if patient is not able to be seen by a couple of weeks by her surgeon, so that we can allow her time to recover in between chemotherapy and surgical debulking visit. 12. Patient will followup as needed and is to follow up with us at minimum post surgical debulking. MTDD
[2019-03-16] MEDS: LIDOCAINE/SOD BICARB 8.4% SYR ID PRN (13:55)
[2019-03-16 13:56] VITALS: BP 119/68
[2019-03-16] MEDS: HEPARIN FLSH (PORT) 500 UN/5ML IVP PRN (14:03)
[2019-03-23 11:12] VITALS: BP 121/86
[2019-03-23 11:12] LABS: PLATELET COUNT, AUTOMATED 255 K/uL (150-450)
[~2019-03-30] VITALS: Ht 154.9 cm; Wt 62.7 kg
[~2019-03-30 09:04] MED LIST changes: +ACET500T68 PO; +ALTEPLASE RECOMB 2 MG VIAL IVP PRN; +D5W IV ONE; +DEXAMETHASONE SOD PHOS 10MG/ML IVP ONE; +FILGRASTIM 480 MCG/0.8 ML SYRINGE SC ONE; +FILGRASTIM 480 MCG/0.8 ML SYRINGE SC PRN; +FLUOROURACIL 50 MG/ML SDV IVP ONE; +FLUOROURACIL IV ONE; +FLUOROURACIL IVPB ONE; +KCL (*) 20 MEQ/100 ML PREMIX 100 ML IVPB ONE; +KCL 2 MEQ/ML 20 MEQ/10 ML VIAL 10 MEQ in NS(*) 0.9% 1000 ML BAG 1,000 ML IV ONE; +KCL 2 MEQ/ML 20 MEQ/10 ML VIAL 30 MEQ in NS(*) 0.9% 1000 ML BAG 1,000 ML IV ONE; +KCL IV ONE; +KCL/NS* 20 MEQ/1000 ML PREMIX 1,000 ML IV ONE; +LEUCOVORIN CAL IV ONE; +LORA-630 PO; +MAGNESIUM SUL IV ONE; +NS 0.9% IV ONE; +NS 0.9% IVPB ONE; +NS(*) 0.9% 100 ML BAG 100 ML IVPB PRN; +NS(*) 0.9% 1000 ML BAG 1,000 ML IV ONE; +ONDANSETRON 4 MG/2 ML VIAL IVP ONE; +OXALIPLATIN 100 MG/20 ML VIAL 100 MG, OXALIPLATIN 50 MG/10 ML VIAL 50 MG in D5W(*) 250 ... IVPB ONE; +OXALIPLATIN IVPB ONE; +WATER FOR INJ,STERILE 20 ML IVP PRN; +[UNRECOGNIZED DRUG - OTHER] IV ONE; +[UNRECOGNIZED DRUG - OTHER] IVPB ONE
[2019-03-30 09:09] VITALS: BP 122/91
[2019-03-30 09:20] LABS: PLATELET COUNT, AUTOMATED 322 K/uL (150-450)
--- NOTE | 2019-03-31 03:08 | ONCOLOGY FOLLOW UP NOTE ---
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 CHIEF COMPLAINT Fatigue. INTERIM HISTORY Kristina Veliz returns to clinic for a followup visit today. Since our last visit, she has received four cycles of neoadjuvant FOLFOX chemotherapy. We spent time today discussing her experience with chemotherapy, and the fact that it was, indeed, extraordinarily difficult. She had a tremendous amount of support from REGISTERED REPRESENTATIVE, infusion staff, and direct support specialist here at the cancer center. She does feel better today, but she reports substantial fatigue, weakness, some peripheral neuropathy, but mostly GI toxicity. There have been a lot of concerns about medication management at home, and the patient had eventually relinquished control of her medications to family. In any case, she did complete four cycles of neoadjuvant FOLFOX, and she underwent CT scan of the chest, abdomen and pelvis to assess response. She is here to discuss these results further today, and she does have a visit scheduled with Dr. Ramsey at the [facility] in the next few days. REVIEW OF SYSTEMS Otherwise negative on all systems reviewed. PAST MEDICAL HISTORY 1. High-grade adenocarcinoma of appendix/colon ,as above. 2. Hypertension. 3. Hypercholesterolemia. 4. Anxiety. CURRENT MEDICATIONS 1. Tramadol p.r.n. 2. Sancuso patch. 3. Potassium. 4. Omeprazole. 5. Tylenol p.r.n. 6. Ativan p.r.n. 7. Losartan. 8. Lexapro. 9. Hydrochlorothiazide. ALLERGIES No known drug allergies. SOCIAL HISTORY The patient is a nurse. She is a never-smoker. There is no history of illicit drug abuse or alcohol abuse. FAMILY HISTORY There is a reported family history of colon cancer in her father, who at 54 of the colon cancer. VITAL SIGNS Temperature is 97.8, blood pressure 122/91, heart rate 104, respirations 16, oxygen saturation 98% on room air. PHYSICAL EXAMINATION GENERAL: Patient is alert and oriented x3, in no apparent distress, sitting in the exam room chair. She is pleasant and talkative. She appears otherwise healthy, but somewhat nervous. HEENT: Anicteric sclerae. NEUROLOGIC: Grossly nonfocal. Her gait is normal. SKIN: Exam reveals no concerning rash or lesion. Rest of exam is deferred for extensive discussion today. LABORATORY STUDIES Reviewed per the [facility] record. IMAGING Please see radiology report. In short, CT scan performed in followup on March 13, 2019, has revealed omental and peritoneal carcinomatosis that are overall mildly impaired in comparison with the December study. Ascites is stable to minimally increased. There is some thickening of the ileocecal valve and TI. There is also some tethering of small bowel to the descending colon. The distal ileum was mildly dilated and fluid-filled, suggesting a degree of terminal ileal obstruction. There is no clear evidence of metastatic disease in the chest. There is a stable indeterminate left lower lobe micronodule. Essentially stable left ovarian prominence. 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 I had a good visit with Kristina Veliz today. We spent a great deal of time discussing her experience to date with neoadjuvant chemotherapy. She had a tremendous amount of toxicity and need for quite a bit of support through her chemotherapy cycles. She now feels better, and she has no further gastrointestinal toxicity to report. Peripheral neuropathy has essentially subsided. Her appetite has returned to normal, and she can essentially eat whatever she wants. We spent time today reviewing her followup CT scan. Although there is some evidence of modest response on this study, the change in comparison to the December study is not striking. I am concerned about her toxicity with chemotherapy, and that we may indeed be reaching the point of diminishing returns. Therefore, we have made plans for her to visit with Dr. Ramsey, Surgical Oncology, [facility]. I was able to discuss her situation with Dr. Ramsey today. Unfortunately, there reportedly may be some delay in debulking surgery and HIPEC. Therefore, we may need to make the difficult decision to have the patient receive additional chemotherapy in the interim. This will remain to be seen. Kristina Veliz had multiple additional questions for me today, and I believe I answered all of her questions to her satisfaction. I will see her back after presumed surgery, or sooner if additional chemotherapy is necessary. I spent a total of 30 minutes of time face to face with the patient today; 25 minutes of this time was spent in direct counseling and coordination of care. [facility] MED[facility] CENTERDolly
== END 2019-04-03 ==
LOC: ONC 09:04
PROVIDERS: ATTEND Internal Medicine Medical Oncology
DX: Z51.11 Encounter for antineoplastic chemotherapy (principal); C18.0 Malignant neoplasm of cecum; E87.6 Hypokalemia; E86.0 Dehydration; R19.7 Diarrhea, unspecified; D70.9 Neutropenia, unspecified; R11.0 Nausea
CPT/HCPCS: 36415; 36591; 76705; 83735; 84100; 85025; 85027; 86021; 96360; 96361; 96365; 96366; 96367; 96368; 96372; 96375; 96376; 96411; 96413; 96415; 96416; 99202; 99212; J0640; J1100; J1442; J1453; J1642; J2060; J2405; J2469; J2550; J3480; J7030; J7040; J7050; J7060; J9190; J9263; 71260; 74177; 82040; 82247; 82310; 82374; 82435; 82565; 82947; 84075; 84132; 84155; 84295; 84450; 84460; 84520; J3475; Q9967

== ENCOUNTER 2019-04-10 08:15 | Outpatient (RCR) | payer OTHER ==
--- NOTE | 2019-01-16 10:59 | PT INITIAL EVALUATION ---
MEDICAL DIAGNOSIS: Appendiceal Adenocarcinoma TREATMENT DIAGNOSIS: Appendiceal Adenocarcinoma DATE OF ONSET: 01/16/19 SUBJECTIVE: Kristina is a 63 year old female presenting to oncology rehabilitation following recent diagnosis and initiation of treatment for gastrointestinal adenocarcinoma thought to be appendiceal in nature and occurring as well in the colon. Kristina is to start FOLFOX treatment today and following chemotherapy undergo surgical intervention. Pt reports no pains at this time but has a chronic history of LBP as well as a recent history of GI discomfort including constipation and diarrhea. Pt reports that she also broke her ankle last February in a fall down stairs and occasionally has problems with it, but it is doing better. 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 REHAB PROBLEM LIST: Increased Pain Decreased Strength Decreased Balance Decreased ADL's PREVIOUS MEDICAL HISTORY: See EMR OCCUPATION: Nurse at [employer] OBJECTIVE: Strength: LE MMT (L,R): Hip: flexion: B 4/5, ext: B 4/5, abd: B 5/5, add: B 5/5. Knee: flexion: 4/5, 4+/5, ext: B 5/5. Ankle: DF: B 5/5, PF: 4+/5, 4/5. Mobility: ECOG Performance Status: Grade 1 Balance: 4 Stage Balance: SLS: L 5sec, R 1-2sec Other Objective Findings: Functional Assessment of Cancer Treatment (FACT-G): PWB: , SWB: , EWB , FWB: , Total: 96/108 ASSESSMENT: Kristina shows signs and symptoms consistent with recent diagnosis and initiation of treatment for gastrointestinal adenocarcinoma. Oncology rehabilitation is indicated for this patient to maintain pt function in ADL's with ongoing treatment and address any impairments and physical side-effects that may occur with treatment. Short Term Goals In 1 MO pt will improve 4 stage balance to tandem position B for 20 seconds. In 4 MO pt will improve 4 stage balance to SLS for 10 seconds B for improved function with ADL's. In 4 MO pt will maintain ECOG performance status to grade 2 or better for maintained function with ADL's. In 4 MO pt will improve hip strength to 4+/5 in all major motions for improved function with ADL's. Patient's Goals Maintain function with ADL's with ongoing treatment. PLAN: Patient to be seen for Manual Therapy/STM/MET Strengthening/condition Ice/Heat Range of Motion Spinal Stabilization Ultrasound Stretching Iontophoresis Neuromuscular Re-ed Closed Chain Program Electrical Stim Posture/Body mechanics Gait Trg/Balance Trg Biofeedback Home Exercise Program [facility]./Manual Traction Therapeutic Activities Pelvic Floor 1x/MO for 4 Months If you have any questions, comments, or concerns about this report or plan, please contact me at . Thank you, Judie Klein, PT, DPT, CLT MTDD
--- NOTE | 2019-03-29 08:23 | PT PLAN OF CARE ---
Physician: Ananth Harris MD Patient is being seen: 1-2x/Week Therapist: Judie Klein, PT, DPT, CLT Medical Diagnosis: Appendiceal Adenocarcinoma Treatment Diagnosis: Appendiceal Adenocarcinoma Date of Onset: 01/16/19 Date of Initial Evaluation: 01/16/19 Date patient was last seen: 03/27/19 Number of treatments: 3 Number of cancellations/No shows: 1 INTERVENTIONS: Manual Therapy/STM/MET Strengthening/condition Ice/Heat Range of Motion Spinal Stabilization Ultrasound Stretching Iontophoresis Neuromuscular Re-ed Closed Chain Program Electrical Stim Posture/Body mechanics Gait Trg/Balance Trg Biofeedback Home Exercise Program Mech./Manual Traction Therapeutic Activities Pelvic Floor GOALS: In 1 MO pt will improve 4 stage balance to tandem position B for 20 seconds. MET In 4 MO pt will improve 4 stage balance to SLS for 10 seconds B for improved function with ADL's. MET In 4 MO pt will maintain ECOG performance status to grade 2 or better for maintained function with ADL's. In 4 MO pt will improve hip strength to 4+/5 in all major motions for improved function with ADL's. PATIENT'S GOAL: Maintain function with ADL's with ongoing treatment. Status of Patient's Goals: 2/4 MET, 2/4 In Progress Patient Compliance: Previously poor, progressing to good Prognosis: Good Reasons for continuing therapy: Kristina Veliz reports poor compliance with activity level throughout chemotherapy with increased fatigue and decreased mobility secondary to several complications including significant GI dysfunction, anxiety, and weight loss. Following reassessment of strength with chemo complete, pt showsgreatest deficits in hip and quad strength with functional deficits in mobility. Further PT at this time to focus on return to prior level of function with strength and endurance gains as well as improved pelvic floor and abdominal strength prior to pending surgical intervention with poor chemo response. Pt to start on independent HEP in addition to formal PT 1x/week. Strength: LE MMT (L,R): Hip: flexion: B 4-/5, ext: 4-/5, 3+/5, abd: B 4+/5, add: B 4+/5. Knee: flexion: 4/5, 4+/5, ext: B 4+/5. Ankle: DF: 4+/5, 5/5, PF: B 4+/5. Mobility: ECOG Performance Status: Grade 1 Balance: 4 Stage Balance: SLS: L 20 sec, R 10 sec Other Objective Findings: Functional Assessment of Cancer Treatment (FACT-G) EVAL: PWB: , SWB: , EWB , FWB: , Total: 96/108 If you have any questions, comments, or concerns about this report or plan, please contact me at . Thank you, Judie Klein, PT, DPT, CLT MTDD
[~2019-04-10 08:15] MED LIST changes: -ALTEPLASE RECOMB 2 MG VIAL IVP PRN; -D5W IV ONE; -DEXAMETHASONE SOD PHOS 10MG/ML IVP ONE; -FILGRASTIM 480 MCG/0.8 ML SYRINGE SC ONE; -FILGRASTIM 480 MCG/0.8 ML SYRINGE SC PRN; -FLUOROURACIL 50 MG/ML SDV IVP ONE; -FLUOROURACIL IV ONE; -FLUOROURACIL IVPB ONE; -KCL (*) 20 MEQ/100 ML PREMIX 100 ML IVPB ONE; -KCL 2 MEQ/ML 20 MEQ/10 ML VIAL 10 MEQ in NS(*) 0.9% 1000 ML BAG 1,000 ML IV ONE; -KCL 2 MEQ/ML 20 MEQ/10 ML VIAL 30 MEQ in NS(*) 0.9% 1000 ML BAG 1,000 ML IV ONE; -KCL IV ONE; -KCL/NS* 20 MEQ/1000 ML PREMIX 1,000 ML IV ONE; -LEUCOVORIN CAL IV ONE; -MAGNESIUM SUL IV ONE; -NS 0.9% IV ONE; -NS 0.9% IVPB ONE; -NS(*) 0.9% 100 ML BAG 100 ML IVPB PRN; -NS(*) 0.9% 1000 ML BAG 1,000 ML IV ONE; -ONDANSETRON 4 MG/2 ML VIAL IVP ONE; -OXALIPLATIN 100 MG/20 ML VIAL 100 MG, OXALIPLATIN 50 MG/10 ML VIAL 50 MG in D5W(*) 250 ... IVPB ONE; -OXALIPLATIN IVPB ONE; -WATER FOR INJ,STERILE 20 ML IVP PRN; -[UNRECOGNIZED DRUG - OTHER] IV ONE; -[UNRECOGNIZED DRUG - OTHER] IVPB ONE
== END 2019-04-16 ==
LOC: PT 08:15
PROVIDERS: ATTEND Internal Medicine Medical Oncology
DX: C18.1 Malignant neoplasm of appendix (principal); M54.5 Low back pain
CPT/HCPCS: 97161

== ENCOUNTER 2019-04-24 08:15 | Outpatient (RCR) | payer OTHER ==
--- NOTE | 2019-04-24 10:31 | PT PLAN OF CARE ---
Physician: Ananth Harris MD Patient is being seen: 1x/Week Therapist: Judie Klein, PT, DPT, CLT Medical Diagnosis: Appendiceal Adenocarcinoma Treatment Diagnosis: Appendiceal Adenocarcinoma Date of Onset: 01/16/19 Date of Initial Evaluation: 01/16/19 Date patient was last seen: 04/24/19 Number of treatments: 8 Number of cancellations/No shows: 1 INTERVENTIONS: Manual Therapy/STM/MET Strengthening/condition Ice/Heat Range of Motion Spinal Stabilization Ultrasound Stretching Iontophoresis Neuromuscular Re-ed Closed Chain Program Electrical Stim Posture/Body mechanics Gait Trg/Balance Trg Biofeedback Home Exercise Program Mech./Manual Traction Therapeutic Activities Pelvic Floor GOALS: In 1 MO pt will improve 4 stage balance to tandem position B for 20 seconds. MET In 4 MO pt will improve 4 stage balance to SLS for 10 seconds B for improved function with ADL's. MET In 4 MO pt will maintain ECOG performance status to grade 2 or better for maintained function with ADL's. NET In 4 MO pt will improve hip strength to 4+/5 in all major motions for improved function with ADL's. PATIENT'S GOAL: Maintain function with ADL's with ongoing treatment. Status of Patient's Goals: 3/4 MET, 1/4 In Progress Patient Compliance: Previously poor, progressing to good Prognosis: Good Reasons for continuing therapy: Kristina Veliz shows excellent progress with strengthening and fatigue management since starting more frequent PT with gym program. She reports improved function with ADL's with decreased fatigue. Hip strength remains weak but is showing improvements at this time with additional gains in balance. Pt is to undergo a group exercise program as well prior to surgery to maximize outcomes following. Pt is to then be reassessed following surgical intervention to regain core and strength deficits likely acquired with immobilization following. Strength: LE MMT (L,R): Hip: flexion: B 4/5, ext: 5/5, 5/5, abd: 4+/5, 5/5, add: B 4+/5. Knee: flexion: B 5/5, ext: B 5/5. Ankle: DF: 5-/5, 5/5, PF: B 5-/5. Mobility: ECOG Performance Status: Grade 1 Balance: 4 Stage Balance: SLS: L 20 sec, R 12 sec Other Objective Findings: Functional Assessment of Cancer Treatment (FACT-G) EVAL: PWB: , SWB: , EWB , FWB: , Total: 96/108 If you have any questions, comments, or concerns about this report or plan, please contact me at . Thank you, Judie Klein, PT, DPT, CLT MTDD
== END 2019-04-24 18:00 | disposition home or self-care (01) ==
LOC: PT 08:15
PROVIDERS: ATTEND Internal Medicine Medical Oncology
DX: C18.1 Malignant neoplasm of appendix (principal); M54.5 Low back pain